=== PATIENT | female | born 1955 | race Caucasian/White ===

== ENCOUNTER 2018-09-01 00:36 | Emergency (ER) | payer OTHER ==
[2018-09-01 01:31] LABS: Absolute Lymphocytes (CBC) 2.7 K/uL (0.7-4.9); Absolute Monocytes 0.7 K/uL (0.1-1.3); Absolute Neutrophil 5.5 K/uL (1.8-8.0); Basophils % 1.1 % (0-1.3); Hematocrit 37.6 % (36.0-45.0); Lymphocytes % 28.4 % (15.3-44.8); MCH 30.4 pg (27.0-35.0); MCV 89.5 fL (80-100); MPV 9.1 fL (7.6-11.3); Monocytes % 7.8 % (3.3-12.3)
[2018-09-01 01:37] LABS: Potassium 4.2 mmol/L (3.5-5.1)
--- NOTE | 2018-09-01 02:55 | EDPHYS ---
Physician Documentation [facility] Name: Annabella Trevino Age: 63 yrs Sex: Female : 1955 Arrival Date: 09/01/2018 Time: 00:39 Bed 7 Private MD: ED Physician Laureano Miles HPI: 09/01 01:50 This 63 yrs old Female presents to ER via Ambulatory with complaints of tw4 Vaginal Bleeding. 01:50 The patient presents with vaginal bleeding that is moderate, with clots. Onset: The tw4 symptoms/episode began/occurred 3 day(s) ago. Modifying factors: The symptoms are alleviated by nothing, the symptoms are aggravated by nothing. Associated signs and symptoms: The patient has no apparent associated signs or symptoms. Severity of symptoms: At their worst the symptoms were moderate, in the emergency department the symptoms are unchanged. The patient has not experienced similar symptoms in the past. Historical: - Allergies: 00:52 No Known Allergies; lp1 - Home Meds: 00:52 loratadine 10 mg oral tab 1 tab once daily [Active]; amlodipine 5 mg tab 1 tab once lp1 daily [Active]; pravastatin 40 mg oral tab nightly [Active]; Ventolin HFA 90 mcg/actuation Nebulizer HFAA 2 puffs every 6 hours [Active]; lisinopril 40 mg Oral tab 1 tab once daily [Active]; Flovent Inhl 1 puff twice a day [Active]; - PMHx: 00:52 Diabetes - NIDDM; Hyperlipidemia; Asthma; lp1 - PSHx: 00:52 ; Tubal ligation; lp1 - Immunization history:: Adult Immunizations up to date. - Social history:: Smoking status: Patient/guardian denies using tobacco, never smoked. - Ebola Screening: : No symptoms or risks identified at this time. ROS: 01:50 Positive for vaginal bleeding. tw4 01:50 Constitutional: Negative for fever, chills, and weight loss, Neck: Negative for injury, pain, and swelling, Cardiovascular: Negative for chest pain, palpitations, and edema, Respiratory: Negative for shortness of breath, cough, wheezing, and pleuritic chest pain, Abdomen/GI: Negative for abdominal pain, nausea, vomiting, diarrhea, and constipation. 01:50 Skin: Negative for injury, rash, and discoloration, Neuro: Negative for headache, weakness, numbness, tingling, and seizure. 01:50 : Positive for vaginal bleeding. Exam: 01:53 Constitutional: This is a well developed, well nourished patient who is awake, alert, tw4 and in no acute distress. Head/Face: Normocephalic, atraumatic. Chest/axilla: Normal chest wall appearance and motion. Nontender with no deformity. No lesions are appreciated. Cardiovascular: Regular rate and rhythm with a normal S1 and S2. No gallops, murmurs, or rubs. Normal PMI, no JVD. No pulse deficits. Respiratory: Lungs have equal breath sounds bilaterally, clear to auscultation and percussion. No rales, rhonchi or wheezes noted. No increased work of breathing, no retractions or nasal flaring. Abdomen/GI: Soft, non-tender, with normal bowel sounds. No distension or tympany. No guarding or rebound. No evidence of tenderness throughout. Back: No spinal tenderness. No costovertebral tenderness. Full range of motion. MS/ Extremity: Pulses equal, no cyanosis. Neurovascular intact. Full, normal range of motion. Neuro: Awake and alert, GCS 15, oriented to person, place, time, and situation. Cranial nerves II-XII grossly intact. Motor strength 5/5 in all extremities. Sensory grossly intact. Cerebellar exam normal. Normal gait. 01:53 : Pelvic Exam: the exam is deferred. Vital Signs: 00:52 BP 156 / 65; Pulse 96; Resp 18; Temp 98.1(O); Pulse Ox 98% on R/A; Weight 112.94 kg; lp1 Height 5 ft. 5 in. (165.10 cm); Pain 0/10; 01:52 BP 114 / 78; Pulse 87; Resp 18; Pulse Ox 95% on R/A; rr5 03:00 BP 115 / 75; Pulse 87; Resp 17; rr5 00:52 Body Mass Index 41.44 (112.94 kg, 165.10 cm) lp1 MDM: 00:42 Patient medically screened. tw4 02:53 Data reviewed: vital signs, nurses notes. Data interpreted: Pulse oximetry: tw4 Interpretation: normal. Counseling: I had a detailed discussion with the patient and/or guardian regarding: the historical points, exam findings, and any diagnostic results supporting the discharge/admit diagnosis. Special discussion: I discussed with the patient/guardian in detail that at this point there is no indication for admission to the hospital. It is understood, however, that if the symptoms persist or worsen the patient needs to return immediately for re-evaluation. 09/01 00:55 Order name: Basic Metabolic Panel; Complete Time: 02:31 tw4 09/01 02:31 Interpretation: Normal except: GLUC 132; CRE 1.60; BUN 38; GFR 32. tw4 09/01 00:55 Order name: CBC with Diff; Complete Time: 02:31 tw4 09/01 02:32 Interpretation: Within normal limits. tw4 09/01 00:55 Order name: IV Saline Lock; Complete Time: 01:17 4 09/01 00:55 Order name: Labs collected and sent; Complete Time: 01:17 tw4 09/01 00:55 Order name: NPO; Complete Time: 01:17 4 09/01 02:16 Order name: Urine Dipstick--Ancillary (enter results) ms 09/01 00:55 Order name: Urine Dipstick-Ancillary (obtain specimen); Complete Time: 02:27 tw4 Administered Medications: No medications were administered Disposition: 09/01/18 02:55 Discharged to Home. Impression: Dysmenorrhea, unspecified, Chronic kidney disease (CKD). - Condition is Stable. - Discharge Instructions: Dysmenorrhea, Chronic Kidney Disease, Adult. - Medication Reconciliation Form, Thank You Letter, Antibiotic Education, Prescription Opioid Use form. - Follow up: Arnold Yip MD; When: Upon discharge from the Emergency Department; Reason: Recheck today's complaints, Continuance of care. - Problem is new. - Symptoms have improved. Signatures: Dispatcher [employer] EDMS Ilda Whipple RN RN lp1 Laureano Miles MD MD tw4 Dangelo English RN RN rr5 Corrections: (The following items were deleted from the chart) 02:55 02:55 09/01/2018 02:55 Discharged to Home. Impression: Dysmenorrhea, unspecified. tw4 Condition is Stable. Forms are Medication Reconciliation Form, Thank You Letter, Antibiotic Education, Prescription Opioid Use. Follow up: Arnold Yip; When: Upon discharge from the Emergency Department; Reason: Recheck today's complaints, Continuance of care. Problem is new. Symptoms have improved. tw4 03:13 02:55 09/01/2018 02:55 Discharged to Home. Impression: Dysmenorrhea, unspecified; rr5 Chronic kidney disease (CKD). Condition is Stable. Forms are Medication Reconciliation Form, Thank You Letter, Antibiotic Education, Prescription Opioid Use. Follow up: Arnold Yip; When: Upon discharge from the Emergency Department; Reason: Recheck today's complaints, Continuance of care. Problem is new. Symptoms have improved. tw4
--- NOTE | 2018-09-01 02:55 | ER ---
Nurse's Notes [facility] Name: Annabella Trevino Age: 63 yrs Sex: Female : 1955 Arrival Date: 09/01/2018 Time: 00:39 Bed 7 Private MD: Diagnosis: Dysmenorrhea, unspecified;Chronic kidney disease (CKD) Presentation: 09/01 00:49 Presenting complaint: Patient states: Vaginal bleeding that began Thursday, stopped on lp1 Thursday, began again ton; states "bleeding with jello-like clots"; denies any pain, burning with urination. Transition of care: patient was not received from another setting of care. Onset of symptoms was September 01, 2018. Risk Assessment: Do you want to hurt yourself or someone else? Patient reports no desire to harm self or others. Initial Sepsis Screen: Does the patient meet any 2 criteria? No. Patient's initial sepsis screen is negative. Does the patient have a suspected source of infection? No. Patient's initial sepsis screen is negative. Care prior to arrival: None. 00:49 Method Of Arrival: Ambulatory lp1 00:49 Acuity: RENETTA 3 lp1 Historical: - Allergies: 00:52 No Known Allergies; lp1 - Home Meds: 00:52 loratadine 10 mg oral tab 1 tab once daily [Active]; amlodipine 5 mg tab 1 tab once lp1 daily [Active]; pravastatin 40 mg oral tab nightly [Active]; Ventolin HFA 90 mcg/actuation Nebulizer HFAA 2 puffs every 6 hours [Active]; lisinopril 40 mg Oral tab 1 tab once daily [Active]; Flovent Inhl 1 puff twice a day [Active]; - PMHx: 00:52 Diabetes - NIDDM; Hyperlipidemia; Asthma; lp1 - PSHx: 00:52 ; Tubal ligation; lp1 - Immunization history:: Adult Immunizations up to date. - Social history:: Smoking status: Patient/guardian denies using tobacco, never smoked. - Ebola Screening: : No symptoms or risks identified at this time. Screenin:53 Abuse screen: Denies threats or abuse. Denies injuries from another. Nutritional lp1 screening: No deficits noted. Tuberculosis screening: No symptoms or risk factors identified. Fall Risk None identified. Assessment: 01:22 Reassessment: Patient appears in no apparent distress at this time. Patient is alert, rr5 oriented x 3, equal unlabored respirations, skin warm/dry/pink. General: Appears in no apparent distress. comfortable, Behavior is calm, cooperative. Pain: Denies pain. Neuro: Level of Consciousness is Oriented to person, place, time. Cardiovascular: Patient's skin is warm and dry. Respiratory: Airway is patent. GI: Abdomen is round obese. : Reports vaginal bleeding that is bright red, with clots. : :. EENT: No signs and/or symptoms were reported regarding the EENT system. Derm: No signs and/or symptoms reported regarding the dermatologic system. Skin is intact, is healthy with good turgor. Musculoskeletal: Circulation, motion, and sensation intact. Vital Signs: 00:52 BP 156 / 65; Pulse 96; Resp 18; Temp 98.1(O); Pulse Ox 98% on R/A; Weight 112.94 kg; lp1 Height 5 ft. 5 in. (165.10 cm); Pain 0/10; 01:52 BP 114 / 78; Pulse 87; Resp 18; Pulse Ox 95% on R/A; rr5 03:00 BP 115 / 75; Pulse 87; Resp 17; rr5 00:52 Body Mass Index 41.44 (112.94 kg, 165.10 cm) lp1 ED Course: 00:39 Patient arrived in ED. ds1 00:42 Laureano Miles MD is Attending Physician. tw4 00:49 Triage completed. lp1 00:53 Arm band placed on left wrist. lp1 00:55 Dangelo nEglish RN is Primary Nurse. rr5 01:10 Inserted saline lock: 20 gauge in right forearm, using aseptic technique. Blood rr5 collected. 01:30 Placed in gown. Bed in low position. Call light in reach. rr5 02:54 Arnold Yip MD is Referral Physician. tw4 03:07 No provider procedures requiring assistance completed. IV discontinued, Pressure rr5 dressing applied. Administered Medications: No medications were administered Outcome: 02:55 Discharge ordered by . tw4 03:07 Discharged to home ambulatory. rr5 03:07 Condition: stable 03:07 Discharge instructions given to patient, Instructed on discharge instructions, follow up and referral plans. Demonstrated understanding of instructions, follow-up care. 03:13 Patient left the ED. rr5 Signatures: Shama Mckeon ds1 Ilda Whipple RN RN lp1 Laureano Miles MD MD tw4 Dangelo English RN RN rr5 Corrections: (The following items were deleted from the chart) 01:20 01:18 Inserted saline lock: 20 gauge in right forearm, using aseptic technique. rr5 rr5
[2018-09-01 03:49] LABS: Urine Blood 3+ (NEG); Urine Glucose NEGATIVE (NEG); Urine Protein NEGATIVE (NEG)
== END 2018-09-01 03:13 | disposition home or self-care (01) ==
LOC: ER 00:36
DX: N94.6 Dysmenorrhea, unspecified (principal); N18.9 Chronic kidney disease, unspecified; E11.9 Type 2 diabetes mellitus without complications; E78.5 Hyperlipidemia, unspecified; J45.909 Unspecified asthma, uncomplicated
CPT/HCPCS: 36415; 80048; 81003; 85025; 99283

== ENCOUNTER 2018-10-12 06:31 | Day surgery (SDC) | payer OTHER ==
[2018-10-12] MEDS ORDERED: NA CHLORIDE 0.9% 1,000 ML ONE ×2 (06:45→07:26)
[2018-10-12] MEDS ORDERED: MIDAZOLAM HCL 2 MG/2 ML INJ ONE (07:28)
[2018-10-12] MEDS ORDERED: LIDOCAINE 2% MPF 5 ML VIAL ONE (07:28)
[2018-10-12] MEDS ORDERED: PROPOFOL 200 MG/20 ML VIAL IV ONE (07:28)
[2018-10-12] MEDS ORDERED: FENTANYL CITR 100 MCG/2 ML ONE (07:28)
[2018-10-12] MEDS ORDERED: ONDANSETRON HCL 40 MG/20 ML VIAL ONE (07:29)
[2018-10-12] MEDS ORDERED: EPHEDRINE SULF 50 MG/10 ML SYR ONE (07:59)
--- NOTE | 2018-10-12 19:49 | OP ---
Date of Procedure: 10/12/2018 Surgeon: Tammy Melendez MD Preoperative Diagnoses: Postmenopausal bleeding and uterine mass. Postoperative Diagnoses: Postmenopausal bleeding and uterine mass. Procedures Performed: Hysteroscopy, polypectomy, dilatation and curettage with Symphion. Anesthesia: General. Specimens: Endometrial curettings and polyp. Complications: None. Drains: None. Condition: The patient is stable. Findings: Uterine cavity with a tumor that was irregular, spanning across all the enriquez of the uteri ne cavity. Adequate sampling was done without the goal of removing the tumor. There was moderate amount of bleeding at the time of the specimen retrieval, however, bleeding was mi nimal on observation in the OR prior to the patient being woken up. Description Of Procedure: After informed consent was verified, the patient was taken back to OR, jimmie nyasia in a supine fashion on operating table. After general anesthesia was given, she was placed in a dorsal lithotomy position using Rob stirrups. Pelvic exam was performed. Uterus found to be antef lexed, cervix small, mucoid discharge from the vagina was noted before I went in. Speculum was place d to expose the cervix, prepped with Betadine x3. Anterior lip grasped with single-tooth tenaculum. Symphion scope was primed. Hysteroscopy directly was performed through the cervical canal into the uterine cavity. Irregular, frondlike structures were seen. Once in the cavity, all the surfaces of the endometrial cavity were encompassed with tumor. For adequate sampling, the cutting device was us ed, and once adequate sampling was obtained, the scope was removed. The pressures were maintained at 80 mmHg. Fluid deficit was very minimal, less than 50 cc. Observed for bleeding for at least 3 min utes, there was no brisk bleeding from here. The instruments were removed. Instrument, needle, and sponge counts were done and were correct at the end of the case. The patient tolerated the procedure well. She will follow with me in 1 week for results. OLIVIA/ELLIOTT Voice ID: [id number] Report ID: [id number]
== END 2018-10-12 09:30 | disposition home or self-care (01) ==
LOC: OR 06:31
PROVIDERS: ATTEND Obstetrics & Gynecology
PROC: 0UDB8ZX Extraction of Endometrium, Via Natural or Artificial Opening Endoscopic, Diagnostic (ICD-10-PCS; 2018-10-12)
PROC: 0UB98ZX Excision of Uterus, Via Natural or Artificial Opening Endoscopic, Diagnostic (ICD-10-PCS; principal; 2018-10-12 07:30)
DX: C54.1 Malignant neoplasm of endometrium (principal); E11.9 Type 2 diabetes mellitus without complications; I10 Essential (primary) hypertension; E78.00 Pure hypercholesterolemia, unspecified; J45.909 Unspecified asthma, uncomplicated; E66.9 Obesity, unspecified; Z68.41 Body mass index [BMI] 40.0-44.9, adult; Z83.3 Family history of diabetes mellitus; Z82.49 Family history of ischemic heart disease and other diseases of the circulatory system; Z82.3 Family history of stroke
CPT/HCPCS: 58558; 82962 ×2; 88305; J2250; J2405; J2704; J3010; J7030

== ENCOUNTER 2019-06-20 16:46 | Observation (INO) | payer OTHER ==
--- OUTSIDE RECORDS SUMMARY | 2019-06-20 16:50 | XMS REPORT | Clinical Summary ---
:1955 Author Organization [facility] Address [address] [place] [address] Care Team Providers Name Role Phone Arnold Boston MD Primary Care Provider Allergies No Known Allergies Medications Medication Sig Dispensed Refills Start Date End Date Status VENTOLIN HFA 90 Take 2 puffs by 0 08/25/2018 Active mcg/actuation inhaler mouth 2 (two) times a day. amLODIPine (NORVASC) Take 1 tablet 0 09/04/2018 Active 5 mg tablet by mouth every morning. ONETOUCH ULTRA BLUE CHECK EVERY 3 08/25/2018 Active TEST STRIP strip test MORNING strips FLOVENT HFA 44 Take 1 puff by 3 10/02/2018 Active mcg/actuation inhaler mouth 2 (two) times a day. ONETOUCH DELICA CHECK EVERY 3 08/19/2018 Active LANCETS 33 gauge misc MORNING lisinopril Take 40 mg by 0 10/26/2018 Active (PRINIVIL,ZESTRIL) 40 mouth every mg tablet morning. pravastatin Take 40 mg by 3 09/18/2018 Active (PRAVACHOL) 40 MG mouth nightly. tablet loratadine (CLARITIN) Take 10 mg by 0 Active 10 mg tablet mouth daily. acetaminophen Take 650 mg by 0 Active (TYLENOL ARTHRITIS mouth 2 (two) PAIN) 650 MG 8 hr times a day. tablet fluticasone (FLONASE) 1 spray by Each 0 Active 50 mcg/actuation Nare route nasal spray daily. cetirizine (ZyrTEC) Take 10 mg by 0 Active 10 MG tablet mouth daily. HYDROcodone-acetamino Take 1 tablet 10 tablet 0 11/23/2018 12/03/2018 phen (NORCO) 5-325 mg by mouth every per tablet 6 (six) hours as needed for moderate pain for up to 10 days. Max Daily Amount: 4 tablets docusate sodium Take 1 capsule 14 capsule 0 11/23/2018 11/30/2018 (COLACE) 100 MG (100 mg total) capsule by mouth 2 (two) times a day for 7 days. Active Problems Problem Noted Date Endometrial cancer 10/29/2018 Overview: Added automatically from request for surgery [id number] Encounters Date Type Specialty Care Team Description 05/10/2019 Hospital Encounter Radiation Oncology Camilo Lombardi Endometrial cancer MD [facility] ([facility] (Primary Dx) 03/21/2019 Hospital Encounter Radiation Oncology Camilo Lombardi Endometrial cancer MD [facility] ([facility]) (Primary Dx) 03/21/2019 Oncology Radiation Oncology [place] 03/18/2019 Oncology Radiation Oncology [facility] 03/15/2019 Hospital Encounter Radiation Oncology Camilo Lombardi Endometrial cancer MD [facility] ([facility]) (Primary Dx) 03/09/2019 Hospital Encounter Radiation Oncology Camilo Lombardi MD 03/07/2019 Hospital Encounter Radiation Oncology Camilo Lombardi MD 02/23/2019 - Hospital Encounter Radiation Oncology Camilo Lombardi 02/24/2019 MD [facility] 02/23/2019 Hospital Encounter Radiation Oncology Camilo Lombardi Endometrial cancer MD [facility] ([facility]) (Primary Dx) 02/15/2019 Telephone Gynecologic Ellie España Endometrial cancer Oncology MD James ([facility]) (Primary Dx) 02/03/2019 Office Visit Gynecologic Ellie España Endometrial cancer Oncology MD James ([facility]) (Primary Dx) 01/21/2019 Hospital Encounter Radiology Ellie España Endometrial cancer MD James ([facility]) 01/19/2019 Telephone Obstetrics and Ellie España Gynecology MD James 12/23/2018 Office Visit Gynecologic Ellie España Endometrial cancer Oncology MD James ([facility]) (Primary Dx) 11/26/2018 Abstract Gynecologic Ellie España Oncology MD James 11/22/2018 Surgery General Surgery Ellie España XI ROBOTIC ASSISTED MD James LAPAROSCOPIC HYSTERCETOMY W/ BSO , EPISIOTOMY WITH REPAIR 11/22/2018 Anesthesia Event General Surgery DanaCherelleelsie Gracia NP 11/22/2018 - Hospital Encounter General Internal Ellie España Endometrial cancer 11/23/2018 Medicine MD James (HCC) 11/22/2018 Telephone Gynecologic Ellie España Oncology MD James 11/16/2018 Pre-Admit Testing Pre-Admission Ellie España Preop testing ( Primary Dx); Appointment Testing MD James Endometrial cancer ([facility]) 11/11/2018 Telephone Gynecologic Ellie España Oncology MD James 10/29/2018 Office Visit Gynecologic Ellie España Endometrial cancer ([facility]) ( Primary Dx); Oncology MD James PMB (postmenopausal bleeding); Type 2 diabetes mellitus without complication, without long-term current use of insulin ([facility]); Thickened endometrium 10/29/2018 Prep for Surgery Gynecologic Abby Salinas RN Endometrial cancer Oncology ([facility]) (Primary Dx) 10/21/2018 Telephone Gynecologic Ellie España Oncology MD [facility] after 06/19/2018 Family History Medical History Relation Name Comments Colon cancer Cousin Heart disease Father Prostate cancer Maternal Grandfather Heart disease Mother Relation Name Status Comments Cousin Father Maternal Grandfather Mother Social History Tobacco Use Types Packs/Day Years Used Date Never Smoker Smokeless Tobacco: Never Used Alcohol Use Drinks/Week oz/Week Comments No Alcohol Habits Answer Date Recorded How often do you have a drink containing alcohol? Never 11/05/2018 How many drinks containing alcohol do you have on a typical Not asked day when you are drinking? How often do you have six or more drinks on one occasion? Not asked Sex Assigned at Date Recorded Not on file Job Start Date Occupation Industry Not on file Not on file Not on file Travel History Travel Start Travel End No recent travel history available. Last Filed Vital Signs Vital Sign Reading Time Taken Blood Pressure 159/72 05/10/2019 1:59 PM CDT Pulse 67 05/10/2019 1:59 PM CDT Temperature 36.1 C (97 F) 05/10/2019 1:59 PM CDT Respiratory Rate 18 05/10/2019 1:59 PM CDT Oxygen Saturation 97% 03/21/2019 2:50 PM CDT Inhaled Oxygen Concentration - - Weight 114 kg (250 lb 4.8 oz) 05/10/2019 1:59 PM CDT Height 165.1 cm (5' 5") 02/03/2019 1:27 PM CDT Body Mass Index 41.65 02/03/2019 1:27 PM CDT Plan of Treatment Date Type Specialty Care Team Description 08/04/2019 Office Visit [place] [address] [facility] [address] [place] [address] 09/20/2019 Appointment [place] [address] [facility] [address] [place] [address] Health Maintenance Due Date Last Done Comments DIABETIC RETINAL EYE EXAM 1955 DIABETIC FOOT EXAM 1963 BREAST CANCER SCREENING 2003 COLONOSCOPY SCREENING 2003 SHINGLES VACCINES (#1) 2003 65+ PNEUMOCOCCAL VACCINE (1 of 2 - PCV13) 2018 INFLUENZA VACCINE 06/09/2019 Procedures Procedure Name Priority Date/Time Associated Diagnosis Comments PET CT SKULL BASE TO Routine 01/21/2019 3:48 Endometrial cancer Results for this MID THIGH PM CDT (HCC) procedure are in the results section. POC GLUCOSE Routine 01/21/2019 1:27 Results for this PM CDT procedure are in the results section. POC GLUCOSE Routine 11/23/2018 7:47 Results for this AM DOOR FRAME BUILDER procedure are in the results section. POC GLUCOSE Routine 11/22/2018 9:35 Results for this PM [employer]AME [employer]DER procedure are in the results section. POC GLUCOSE Routine 11/22/2018 3:31 Results for this PM [employer]DER procedure are in the results section. POC GLUCOSE Routine 11/22/2018 11:26 Results for this AM [employer] FRAME BUILDER procedure are in the results section. SURGICAL PATHOLOGY Routine 11/22/2018 10:17 Results for this REQUEST AM [employer] BUILDER procedure are in the results section. SURGICAL PATHOLOGY Routine 11/22/2018 10:17 Results for this REQUEST AM [employer] FRAME BUILDER procedure are in the results section. SURGICAL PATHOLOGY Routine 11/22/2018 10:17 Results for this REQUEST AM [employer] FRAME BUILDER procedure are in the results section. TX AN ELECTIVE Routine 11/22/2018 9:16 ENDOTRACHEAL AIRWAY AM [employer] FRAME BUILDER Procedure Note - Octavia Roach CRNA - 11/22/2018 9:16 AM DOOR FRAME BUILDER ANESTHESIA INTUBATION Date/Time: 11/22/2018 8:21 AM Performed by: Octavia Roach CRNA Authorized by: Kamille Kothari MD Location: OR Urgency: Elective Difficult Airway: No Preoxygenated with 100% O2: Yes C-spine Precautions Maintained Throughout: Yes Mask Ventilation: Easy mask Final Airway Type: Endotracheal airway Final Endotracheal Airway: ETT Cuffed: Yes Technique Used: Direct laryngoscopy Devices/Methods Used in Placement: Intubating stylet Insertion Site: Oral Blade Type: Hilary ETT Size (mm): 7.0 Cuff at minimum occlusion pressure: Yes Measured from: Lips ETT to Lips (cm): 22 Placement Verified by: CO2 detection, direct visualization and equal breath sounds Laryngoscopic view: Grade I - full view of glottis Rapid Sequence Induction (RSI): No Modified RSI: No Number of Attempts at Approach: 1 URINALYSIS SCREEN AND Timed 11/22/2018 9:08 AM Endometrial cancer Results for this MICROSCOPY, WITH DOOR FRAME BUILDER (HCC) procedure are in REFLEX TO CULTURE the results section. URINE CULTURE Timed 11/22/2018 9:08 AM Results for this [employer] BUILDER procedure are in the results section. POC PANEL 4 Routine 11/22/2018 6:49 AM Results for this [employer]DER procedure are in the results section. SURGICAL PATHOLOGY Routine 11/22/2018 Results for this REQUEST procedure are in the results section. ESTIMATED GFR Routine 11/16/2018 11:26 AM Results for this [employer]DER procedure are in the results section. HC COMPLETE BLD COUNT Routine 11/16/2018 11:26 AM Endometrial cancer Results for this W/AUTO DIFF [employer]OR FRAME BUILDER (HCC) procedure are in the results section. COMPREHENSIVE Routine 11/16/2018 11:26 AM Endometrial cancer Results for this METABOLIC PANEL [employer]OR FRAME BU[employer]DER (HCC) procedure are in the results section. TYPE AND SCREEN Routine 11/16/2018 11:26 AM Endometrial cancer Results for this DO[employer] FRAME BUILDER (HCC) procedure are in the results section. ECG PRE/POST OP Routine 11/16/2018 11:20 AM Endometrial cancer Results for this DOOR FRAME BUILDER (HCC) procedure are in the results section. after 06/19/2018 Results PET/CT Skull Base To Mid Thigh (01/21/2019 3:48 PM CDT) Specimen Narrative Performed At PROCEDURE:PET CT SKULL BASE TO MID THIGH HM RADIANT INDICATION:Initial staging endometrial cancer.Initial treatment strategy. TECHNIQUE:Blood glucose measured at the time of injection was 86 mg/dL. The patient was then injected with 11.1 mCi of 18F-FDG, IV.Approximately one hour later, PET images were acquired from the skull base to the mid thighs. Corresponding, low dose, non-contrast CT scanning was performed as part of the attenuation correction process.Automated dose exposure control was utilized. COMPARISON:No comparison imaging. FINDINGS: Head and neck:No suspicious brain uptake.Prior maxillary sinus disease.Normal uptake in the nasopharynx and oropharynx.Uptake by the larynx is normal.No suspicious neck lymph node uptake. Chest:No abnormal mediastinal, hilar, or axillary lymph node uptake.No suspicious pulmonary uptake. Abdomen:Normal uptake in the stomach, spleen, pancreas, liver, and adrenal glands.No abnormal retroperitoneal or mesenteric lymph node uptake. Probable hemorrhagic left renal cyst. Pelvis:Physiologic bowel uptake.No abnormal pelvic sidewall or inguinal lymph node uptake.The uterus is absent. Review of the osseous structures demonstrates no suspicious uptake. IMPRESSION: 1.No evidence for metastatic endometrial cancer. [facility]-[id number] Procedure Note [facility], Radiology Results Incoming - 01/21/2019 5:12 PM CDT PROCEDURE: PET CT SKULL BASE TO MID THIGH INDICATION: Initial staging endometrial cancer. Initial treatment strategy. TECHNIQUE: Blood glucose measured at the time of injection was 86 mg/dL. The patient was then injected with 11.1 mCi of 18F-FDG, IV. Approximately one hour later, PET images were acquired from the skull base to the mid thighs. Corresponding, low dose, non-contrast CT scanning was performed as part of the attenuation correction process. Automated dose exposure control was utilized. COMPARISON: No comparison imaging. FINDINGS: Head and neck: No suspicious brain uptake. Prior maxillary sinus disease. Normal uptake in the nasopharynx and oropharynx. Uptake by the larynx is normal. No suspicious neck lymph node uptake. Chest: No abnormal mediastinal, hilar, or axillary lymph node uptake. No suspicious pulmonary uptake. Abdomen: Normal uptake in the stomach, spleen, pancreas, liver, and adrenal glands. No abnormal retroperitoneal or mesenteric lymph node uptake. Probable hemorrhagic left renal cyst. Pelvis: Physiologic bowel uptake. No abnormal pelvic sidewall or inguinal lymph node uptake. The uterus is absent. Review of the osseous structures demonstrates no suspicious uptake. IMPRESSION: 1. No evidence for metastatic endometrial cancer. [facility]-[id number] Performing Organization Address City/State/Zipcode Phone Number [facility] [address] [place] [address] POC glucose (01/21/2019 1:27 PM CDT)Only the most recent of5 resultswithin the time period is included. POC glucose 86 65 - 99 mg/dL [facility] Comment: [facility] Meter ID: [id number] Forging Machine Operator: Ivette Lewis Specimen Performing Organization Address City/State/Zipcode Phone Number [facility] DEPARTMENT OF PATHOLOGY [address] [place] [address] AND GENOMIC MEDICINE [facility] [id number] [place] [address] Surgical pathology request (11/22/2018 10:17 AM DOOR FRAME BUILDER)Only the most recent of4 resultswithin the time period is included. [facility] DEPARTMENT OF PATHOLOGY AND GENOMIC MEDICINE Surgical pathology See link below for [facility] DEPARTMENT OF report PDF Lab Report PATHOLOGY AND GENOMIC MEDICINE Result status This is Supplemental [facility] DEPARTMENT OF Report for PATHOLOGY AND [id number] GENOMIC MEDICINE Specimen Performing Organization Address [facility] Phone Number [facility] DEPARTMENT OF PATHOLOGY [address] [place] [address] AND [facility] Urinalysis screen and microscopy, with reflex to culture (11/22/2018 9:08 AM DOOR FRAME BUILDER) Specimen site Catheterized [facility] Color, UA Straw [facility] Appearance, UA Clear [facility] Specific gravity, 1.009 1.001 - 1.030 [facility] pH, UA 5.0 5.0 - 9.0 [facility] Protein, UA Negative Negative [facility] Glucose, UA Negative Negative [facility] Ketones, UA Negative Negative [facility] Bilirubin, UA Negative Negative [facility] Blood, UA Negative Negative [facility] Nitrite, UA Negative Negative [facility] Urobilinogen, UA <2.0 <2.0 E.U./dL [facility] Leukocyte esterase, Negative Negative [facility] WBC, UA <1 0 - 4 /HPF [facility] RBC, UA <1 0 - 5 /HPF [facility] Bacteria, UA None seen None seen [facility] Yeast, UA None seen [facility] Yeast with None seen [facility] pseudohyphae, UA [facility] Specimen Urine - Urine, catheter Performing Organization Address City/[facility]/Zipcode Phone Number [facility] DEPARTMENT OF PATHOLOGY [address] [place] [address] Urine culture (11/22/2018 9:08 AM DOOR FRAME BUILDER) Urine culture SEE COMMENTComment: [facility] Bacteriuria screen [facility] negative. Specimen Performing Organization Address City/[facility] Phone Number [facility] DEPARTMENT OF PATHOLOGY [address] [place] [address] POC panel 4 (11/22/2018 6:49 AM DOOR FRAME BUILDER) POC sodium 137 135 - 148 [facility] mmol/L [facility] POC potassium 4.5 3.5 - 5.0 [facility] mmol/L [facility] POC hematocrit 40 37 - 47 % [facility] POC glucose 114 (H) 65 - 99 mg/dL [facility] POC hemoglobin 13.6 12.0 - 16.0 [facility] Comment: g/dL [facility] Meter ID: [id number] Forging Machine Operator: Zia Ortiz Specimen Blood Performing Organization Address City/[facility]/Zipcode Phone Number [facility] DEPARTMENT OF PATHOLOGY [address] [place] [address] Estimated GFR (11/16/2018 11:26 AM DOOR FRAME BUILDER) Estimated GFR 43 (A) mL/min/1.73 [facility] Comment: m2 [facility]Units[facility]pretation [facility] G1 >=90 Normal or high G2 60-89Mildly decreased [id number] to moderately decreased [id number] to severely decreased G4 15-29Severely decreased G5 <15Kidney failure The eGFR was calculated using the Chronic Kidney Disease Epidemiology Collaboration (CKD-EPI) equation. Interpretation is based on recommendations of the National Kidney Foundation-Kidney Disease Outcomes Quality Initiative (NKF-KDOQI) published in 2014. Specimen Plasma specimen Performing Organization Address City/State/Zipcode Phone Number [facility] DEPARTMENT OF PATHOLOGY [id number] [place] [address] [place] [address] HOSPITAL CBC with platelet and differential (11/16/2018 11:26 AM DOOR FRAME BUILDER) WBC 7.5 4.5 - 11.0 k/uL [facility] RBC 4.27 4.20 - 5.50 m/uL [facility] HGB 12.5 12.0 - 16.0 g/dL [facility] HCT 38.4 37.0 - 47.0 % [facility] MCV 89.9 82.0 - 100.0 fL [facility] MCH 29.3 27.0 - 34.0 pg [facility] MCHC 32.6 31.0 - 37.0 g/dL [facility] RDW - SD 41.0 37.0 - 55.0 fL [facility] MPV 10.7 6.9 - 11.0 fL [facility] Platelet count 277 150 - 400 K/uL [facility] Nucleated RBC 0.00 /100 WBC [facility] Neutrophils 56.9 39.0 - 69.0 % [facility] Lymphocytes 28.9 25.0 - 45.0 % [facility] Monocytes 8.9 0.0 - 10.0 % [facility] Eosinophils 4.1 0.0 - 5.0 % [facility] Basophils 0.9 0.0 - 1.0 % [facility] Immature granulocytes 0.3 0.0 - 1.0 % [facility] Specimen Blood Performing Organization Address City/[facility]/Zipcode Phone Number [facility] DEPARTMENT OF PATHOLOGY [address] [place] [address] [place] [address] HOSPITAL Type and screen (11/16/2018 11:26 AM DOOR FRAME BUILDER) ABO grouping A [facility] Rh type POS [facility] Antibody screen (gel) NEG [facility] Specimen Blood Performing Organization Address City/[facility]/Zipcode Phone Number [facility] DEPARTMENT OF PATHOLOGY [address] [place] [address] Comprehensive metabolic panel (11/16/2018 11:26 AM DOOR FRAME BUILDER) Sodium 139 135 - 148 mEq/L [facility] Potassium 5.2 (H) 3.5 - 5.0 mEq/L [facility] Chloride 102 98 - 112 mEq/L [facility] CO2 26 24 - 31 mEq/L [facility] Anion gap 11@ANIO 7 - 15 mEq/L [facility] BUN 30 (H) 8 - 23 mg/dL [facility] Creatinine 1.29 (H) 0.50 - 0.90 [facility] mg/dL [facility] Glucose 105 (H) 65 - 99 mg/dL [facility] Calcium 9.3 8.8 - 10.2 [facility] mg/dL [facility] Protein 7.8 6.3 - 8.3 g/dL [facility] Albumin 4.3 3.5 - 5.0 g/dL [facility] A/G ratio 1.2 0.7 - 3.8 [facility] Alkaline phosphatase 94 35 - 104 U/L [facility] AST 22 10 - 35 U/L [facility] ALT 19 5 - 50 U/L [facility] Total bilirubin <0.2 0.2 - 1.2 mg/dL [facility] Specimen Plasma specimen Performing Organization Address City/State/Zipcode Phone Number [facility] DEPARTMENT OF PATHOLOGY [address] [place] [address] ECG Pre/Post Op (11/16/2018 11:20 AM DOOR FRAME BUILDER) Ventricular rate 77 [facility] Atrial rate 77 [facility] TX interval 152 [facility] QRSD interval 100 [facility] QT interval 396 [facility] QTC interval 448 [facility] P axis 1 38 [facility] QRS axis 1 0 [facility] T wave axis 30 [facility] EKG impression Normal sinus [facility] rhythm-Normal ECG-No previous ECGs available-Electronicall y Signed By Michael Boland MD (2013) on 11/17/2018 1:54:04 PM Specimen Narrative Performed At Performing Organization Address City/State/Zipcode Phone Number [facility] [address] [address] [place] [address] after 06/19/2018 Advance Directives Patient has advance care planning documents on file. For more information, please contact:Carlos Ravi[address] [place] [address]
[2019-06-20 17:50] LABS: Absolute Lymphocytes (CBC) 2.2 K/uL (0.7-4.9); Hematocrit 36.6 % (36.0-45.0); Lymphocytes % 26.5 % (15.3-44.8); MPV 8.9 fL (7.6-11.3); RBC Red Blood Cell Count 4.08 M/uL (3.86-4.86)
[2019-06-20 18:12] LABS: Albumin 3.7 g/dL (3.4-5.0); Bilirubin Total 0.3 mg/dL (0.2-1.0); Protein, Total 7.9 g/dL (6.4-8.2)
[2019-06-20] MEDS ORDERED: VENTOLIN IH PRN (20:25)
--- NOTE | 2019-06-20 20:44 | RAD REPORT ---
EXAM DESCRIPTION: RAD - Hand Left 3 View - 06/20/2019 8:03 pm CLINICAL HISTORY: Septic arthritis COMPARISON: None. FINDINGS: No fracture, dislocation or periosteal reaction noted. Advanced IP joint degenerative vera ges are present. There is fusion of the fourth PIP joint with medial and lateral marginal spurring. S ubstantial joint space narrowing seen at the third PIP joint with large spurs. More moderate degrees of degenerative change seen in the IP joints of the thumb and third- fifth phalanges. There is promin ent soft tissue swelling around the second PIP joint. No erosive or destructive component. Second MCP joint space narrowing is present. No erosive or destructive component. The remaining MCP j oints are spared. Patient has advanced trapezial first metacarpal articulation degenerative change. IMPRESSION: Advanced degenerative change at the second PIP joint with prominent surrounding soft tis joceline swelling. This would be consistent with the diagnosis of septic arthritis. No erosive or destructive change at the second PIP joint. Advanced degenerative changes elsewhere in the IP joints of the hand. Findings are most pronounced at the third PIP joint and the fourth PIP joint which has fused.
[2019-06-20] MEDS: FLUTICASONE PROPIONATE IH SCH (21:00)
[2019-06-20] MEDS ORDERED: ATORVASTATIN 20 MG TAB PO SCH (21:00)
[2019-06-20 23:47] LABS: Rheumatoid Factor POS (NEG)
[2019-06-21] MEDS: FLUTICASONE PROPIONATE IH SCH ×2 (08:53→08:58)
[2019-06-21] MEDS ORDERED: FLUTICASONE IH SCH (09:00)
[2019-06-21] MEDS ORDERED: LISINOPRIL 20 MG TAB PO SCH (09:00)
[2019-06-21] MEDS ORDERED: AMLODIPINE 5 MG TAB PO SCH (09:00)
[2019-06-21 09:26] LABS: Urine Appearance CLEAR; Urine Bilirubin NEGATIVE (NEG); Urine Blood NEGATIVE (NEG); Urine Color YELLOW; Urine Glucose NEGATIVE (NEG); Urine Protein NEGATIVE (NEG); Urine Urobilinogen 0.2 mg/dL (0.2-1.0)
[2019-06-21 09:30] LABS: Urine Microscopic Reflex NO UMIC
[2019-06-21] MEDS ORDERED: FLUTICASONE PROPIONATE 44 MCG IH SCH (21:00)
--- NOTE | 2019-06-22 00:13 | HP ---
Date of Admission: 06/20/2019 Chief Complaint: Pain, hand. History Of Present Illness: A 64-year-old female who is known to have hypertension, mild diabetes, a nd asthma, was brought to the office with fairly sudden onset of swelling, pain and redness of the in dex finger. She was examined and she had no motion of the proximal interphalangeal joint of the inde x finger. In view of this, a possibility of pyogenic arthritis was considered, admitted for observat ion, either for aspiration or possible surgery. Past Medical History: Positive for diabetes, hypertension, asthma, uterine cancer, gallbladder surge ry, hysterectomy, and knee surgery on the left. Allergies: NONE. Family History: Positive for hypertension and diabetes. Personal History: Nonsmoker. Home Medicines: Please refer to the chart. Review of Systems: The patient denied any fever, chills, rigors. Physical Examination: General: Revealed a 64-year-old female. HEENT: No icterus. Neck: Supple. JVD negative. Chest: Clear. Heart: Regular. Abdomen: Pendulous, nontender. Extremities: There is diffuse swelling and redness of the second finger in the proximal interphalang eal joint. Range of motion is 0. She is unable to make a fist. Laboratory Data: X-ray of the hand showed possible findings compatible with septic arthritis. White count, however, is normal. Assessment: 1.Sudden onset of redness, pain and swelling, second finger, proximal interphalangeal joint. 2.Type 2 diabetes. 3.Hypertension. 4.Asthma. 5.History of uterine cancer. 6.Status post gallbladder surgery and hysterectomy. Plan: The patient is to be seen by Dr. Lancaster who is going to do aspiration before which no antib iotics will be given. However, her rheumatoid arthritis test is positive. It is possible that she m ay have baseline rheumatoid arthritis with added acute exacerbation or septic arthritis. STACEY/JOEL Voice ID: [id number]
--- NOTE | 2019-06-23 08:21 | OP ---
Surgeon: Salomon Lancaster MD [place] Surfacer: None. Preoperative Diagnosis: Puncture wound of the left index finger. Postoperative Diagnosis: Puncture wound of the left index finger. Procedure Performed: Tenosynovectomy of the left index finger proximal interphalangeal joint. Anesthesia: General. Description Of Procedure: After satisfactory induction of general anesthesia, left hand was prepped with Betadine scrub, Betadine paint. Dry sterile drapes applied in usual manner. The arm was elevated, exsanguinated with an Esmarch. Tourniquet was inflated to 250 mmHg. Curvilinear incision made over dorsum of the left index finger PIP joint. Then, flaps were elevated . No foreign body was identified. There was swelling of the extensor tendon. Then dissection into the joint was performed. there was white material present sililar to that seen with previous steroid injections. The wound was jet lavaged, irrigated, after cultures were taken and then tourniquet released. Electrocautery was used for hemostasis. The split tendon was closed with 5-0 Prolene clear. Skin was closed with 4-0 Prolene, vertical mattress with simple sutures, dressed with Xeroform, 2 inch Ad. The patient tolerated the procedure well and returned to Recovery. SHASTA/ELLIOTT Voice ID: [id number] Report ID: [id number] PETAR
== END 2019-06-21 17:54 | disposition home or self-care (01) ==
LOC: 4TH 16:47
PROVIDERS: ADMIT Internal Medicine; ATTEND Internal Medicine
DX: M00.9 Pyogenic arthritis, unspecified (principal); I10 Essential (primary) hypertension; E11.9 Type 2 diabetes mellitus without complications; J45.909 Unspecified asthma, uncomplicated; M06.9 Rheumatoid arthritis, unspecified; Z85.42 Personal history of malignant neoplasm of other parts of uterus
CPT/HCPCS: 87040 ×2; 85025; 36415; 86430; 82962 ×4; 81003; 80053; 86038; 73130; G0379; G0378

== ENCOUNTER 2019-06-22 11:10 | Day surgery (SDC) | payer OTHER ==
--- OUTSIDE RECORDS SUMMARY | 2019-06-22 11:12 | XMS REPORT | Clinical Summary ---
:1955 Author Organization [facility] Address [address] [place] [address] Care Team Providers Name Role Phone Arnold [...] Overview: Added automatically from request for surgery [id number] Encounters Date Type Specialty Care Team Description 05/10/2019 Hospital Encounter Radiation Oncology Camilo Lombardi Endometrial cancer MD Max[facility] ([facility]) (Primary Dx) 03/21/2019 Hospital Encounter Radiation Oncology Camilo Lombardi Endometrial cancer MD Maxime ([facility]) (Primary Dx) 03/21/2019 Oncology Radiation Oncology [place] 03/18/2019 Oncology Radiation Oncology [facility] 03/15/2019 Hospital Encounter Radiation Oncology Camilo Lombardi Endometrial cancer MD Maxime ([facility]) (Primary Dx) 03/09/2019 Hospital Encounter Radiation Oncology Camilo Lombardi MD 03/07/2019 Hospital Encounter Radiation Oncology Camilo Lombardi MD 02/23/2019 - Hospital Encounter Radiation Oncology Camilo Lombardi 02/24/2019 MD [facility] 02/23/2019 Hospital Encounter Radiation Oncology Camilo Lombardi Endometrial cancer MD Maxime ([facility]) (Primary Dx) 02/15/2019 Telephone Gynecologic Ellie España Endometrial cancer Oncology MD James ([facility]) (Primary Dx) 02/03/2019 Office Visit Gynecologic Ellie España Endometrial cancer Oncology MD James ([facility]) (Primary Dx) 01/21/2019 Hospital Encounter Radiology Ellie España Endometrial cancer MD James ([facility]) 01/19/2019 Telephone Obstetrics and Ellie España Gynecology MD James 12/23/2018 Office Visit Gynecologic Ellie España Endometrial cancer Oncology MD James ([facility]) (Primary Dx) 11/26/2018 Abstract Gynecologic Ellie España [...] Dx); Appointment Testing MD James Endometrial cancer ([facility]) 11/11/2018 Telephone Gynecologic Ellie España Oncology MD James 10/29/2018 Office Visit Gynecologic Ellie España Endometrial cancer ([facility]) ( Primary Dx); Oncology MD James PMB (postmenopausal bleeding); Type 2 diabetes mellitus without complication, without long-term current use of insulin ([facility]); Thickened endometrium 10/29/2018 Prep for Surgery Gynecologic Abby Salinas RN Endometrial cancer Oncology ([facility]) (Primary Dx) 10/21/2018 Telephone Gynecologic Ellie España Oncology MD James after 06/21/2018 Family History Medical History Relation Name Comments [...] Office Visit [place] [id number] [facility] [address] [place] [address] 09/20/2019 Appointment [place] [id number] [facility] [address] [place] [address] Health Maintenance Due Date Last [...] Routine 11/23/2018 7:47 Results for this AM INVESTMENT DIRECTOR procedure are in the results section. POC GLUCOSE Routine 11/22/2018 9:35 Results for this PM INVESTMENT DIRECTOR procedure are in the results section. POC GLUCOSE Routine 11/22/2018 3:31 Results for this PM INVESTMENT DIRECTOR procedure are in the results section. POC GLUCOSE Routine 11/22/2018 11:26 Results for this AM INVESTMENT DIRECTOR procedure are in the results section. SURGICAL PATHOLOGY Routine 11/22/2018 10:17 Results for this REQUEST AM INVESTMENT DIRECTOR procedure are in the results section. SURGICAL PATHOLOGY Routine 11/22/2018 10:17 Results for this REQUEST AM INVESTMENT DIRECTOR procedure are in the results section. SURGICAL PATHOLOGY Routine 11/22/2018 10:17 Results for this REQUEST AM INVESTMENT DIRECTOR procedure are in the results section. MA AN ELECTIVE Routine 11/22/2018 9:16 ENDOTRACHEAL AIRWAY AM INVESTMENT DIRECTOR Procedure Note - Octavia Roach CRNA - 11/22/2018 9:16 AM INVESTMENT DIRECTOR ANESTHESIA INTUBATION Date/Time: 11/22/2018 8:21 AM Performed [...] Endometrial cancer Results for this MICROSCOPY, WITH INVESTMENT DIRECTOR (HCC) procedure are in REFLEX TO CULTURE the results section. URINE CULTURE Timed 11/22/2018 9:08 AM Results for this INVESTMENT DIRECTOR procedure are in the results section. POC PANEL 4 Routine 11/22/2018 6:49 AM Results for this INVESTMENT DIRECTOR procedure are in the results section. SURGICAL PATHOLOGY Routine 11/22/2018 Results for this REQUEST procedure are in the results section. ESTIMATED GFR Routine 11/16/2018 11:26 AM Results for this INVESTMENT DIRECTOR procedure are in the results section. HC COMPLETE BLD COUNT Routine 11/16/2018 11:26 AM Endometrial cancer Results for this W/AUTO DIFF INVESTMENT DIRECTOR (HCC) procedure are in the results section. COMPREHENSIVE Routine 11/16/2018 11:26 AM Endometrial cancer Results for this METABOLIC PANEL INVESTMENT DIRECTOR (HCC) procedure are in the results section. TYPE AND SCREEN Routine 11/16/2018 11:26 AM Endometrial cancer Results for this INVESTMENT DIRECTOR (HCC) procedure are in the results section. ECG PRE/POST OP Routine 11/16/2018 11:20 AM Endometrial cancer Results for this INVESTMENT DIRECTOR (HCC) procedure are in the results section. after 06/21/2018 Results PET/CT Skull Base To Mid Thigh [...] IMPRESSION: 1.No evidence for metastatic endometrial cancer. [facility]-[id number] Procedure Note [facility], Radiology Results Incoming - 01/21/2019 5:12 PM [...] 1. No evidence for metastatic endometrial cancer. [facility]-[id number] Performing Organization Address City/State/Zipcode Phone Number [facility] [address] [place] [address] POC glucose (01/21/2019 1:27 PM CDT)Only the most recent of5 resultswithin the time period is included. POC glucose 86 65 - 99 mg/dL [facility] Comment: [facility] Meter ID: [id number] Scutcher Tender: Ivette Lewis Specimen Performing Organization Address City/State/Zipcode Phone Number [facility] OF PATHOLOGY [address] [place] [address] AND GENOMIC MEDICINE [facility] [id number] [place] [address] Surgical pathology request (11/22/2018 10:17 AM INVESTMENT DIRECTOR)Only the most recent of4 resultswithin the time period is included. [facility] PATHOLOGY AND GENOMIC MEDICINE Surgical pathology See link below for [facility] report PDF Lab Report PATHOLOGY AND GENOMIC MEDICINE Result status This is Supplemental [facility] Report for PATHOLOGY AND [id number] GENOMIC MEDICINE Specimen Performing Organization Address [facility] Cent[facility] Phone Number [facility] PATHOLOGY [address] [place] [address] AND [facility] Urinalysis screen and microscopy, with reflex to culture (11/22/2018 9:08 AM INVESTMENT DIRECTOR) Specimen site Catheterized [facility] Color, UA Straw [facility] Appearance, UA Clear [facility] Specific gravity, 1.009 1.001 - 1.030 [facility] pH, UA 5.0 5.0 - 9.0 [facility] Protein, UA Negative Negative [facility] Glucose, UA Negative Negative [facility] Ketones, UA Negative Negative [facility] Bilirubin, UA Negative Negative [facility] Blood, UA Negative Negative [facility] Nitrite, UA Negative Negative [facility] Urobilinogen, UA <2.0 <2.0 E.U./dL [facility] Leukocyte esterase, Negative Negative [facility] WBC, UA <1 0 - 4 /HPF [facility] RBC, UA <1 0 - 5 /HPF [facility] Bacteria, UA None seen None seen [facility] Yeast, UA None seen [facility] Yeast with None seen [facility] pseudohyphae, UA [facility] Specimen Urine - Urine, catheter Performing Organization Address City/[facility]/Zipcode Phone Number [facility] PATH[facility] [address] [place] [address] Urine culture (11/22/2018 9:08 AM INVESTMENT DIRECTOR) Urine culture SEE COMMENTComment: [facility] Bacteriuria screen [facility] negative. Specimen Performing Organization Address City/[facility] Cent[facility]ode Phone Number [facility] [address] [place] [address] POC panel 4 (11/22/2018 6:49 AM INVESTMENT DIRECTOR) POC sodium 137 135 - 148 [facility] mmol/L [facility] POC potassium 4.5 3.5 - 5.0 [facility] mmol/L [facility] POC hematocrit 40 37 - 47 % [facility] POC glucose 114 (H) 65 - 99 mg/dL [facility] POC hemoglobin 13.6 12.0 - 16.0 [facility] Comment: g/dL [facility] Meter ID: [id number] Scutcher Tender: Zia Ortiz Specimen Blood Performing Organization Address City/[facility]/Zipcode Phone Number [facility]OLOG[facility] [address] [place] [address] Estimated GFR (11/16/2018 11:26 AM INVESTMENT DIRECTOR) Estimated GFR 43 (A) mL/min/1.73 [facility] Comment: m2 [place] CatergoryUnitsInterpretation HOSPITAL G1 >=90 Normal or high G2 60-89Mildly decreased [id number] to moderately decreased D6m24-64Xheiymkdyn to severely decreased G4 15-29Severely decreased G5 <15Kidney failure The eGFR was calculated using the Chronic Kidney Disease Epidemiology Collaboration (CKD-EPI) equation. Interpretation is based on recommendations of the National Kidney Foundation-Kidney Disease Outcomes Quality Initiative (NKF-KDOQI) published in 2014. Specimen Plasma specimen Performing Organization Address City/State/Zipcode Phone Number [facility]Y [id number] [place] [address] [place] [address] HOSPITAL CBC with platelet and differential (11/16/2018 11:26 AM INVESTMENT DIRECTOR) WBC 7.5 4.5 - 11.0 k/uL [facility] RBC 4.27 4.20 - 5.50 m/uL [facility] HGB 12.5 12.0 - 16.0 g/dL [facility] HCT 38.4 37.0 - 47.0 % [facility] MCV 89.9 82.0 - 100.[address] [facility] MCH 29.3 27.0 - 34.[address] [facility] MCHC 32.6 31.0 - 37.0 g/dL [facility] RDW - SD 41.0 37.0 - 55.[address] [facility] MPV 10.7 6.9 - 11.[address] [facility] Platelet count 277 150 - 400 K/uL [facility] Nucleated RBC 0.00 /[address] [facility] Neutrophils 56.9 39.0 - 69.0 % [facility] Lymphocytes 28.9 25.0 - 45.0 % [facility] Monocytes 8.9 0.0 - 10.0 % [facility] Eosinophils 4.1 0.0 - 5.0 % [facility] Basophils 0.9 0.0 - 1.0 % [facility] Immature granulocytes 0.3 0.0 - 1.0 % [facility] Specimen Blood Performing Organization Address City/[facility]/Zipcode Phone Number [facility] [address] [place] [address] [place] [address] HOSPITAL Type and screen (11/16/2018 11:26 AM INVESTMENT DIRECTOR) ABO grouping A [facility] Rh type POS [facility] Antibody screen (gel) NEG [facility] Specimen Blood Performing Organization Address City/[facility]/Zipcode Phone Number [facility] [address] [place] [address] Comprehensive metabolic panel (11/16/2018 11:26 AM INVESTMENT DIRECTOR) Sodium 139 135 - 148 mEq/L [facility] Potassium 5.2 (H) 3.5 - 5.0 mEq/L [facility] Chloride 102 98 - 112 mEq/L [facility] CO2 26 24 - 31 mEq/L [facility] Anion gap 11@ANIO 7 - 15 mEq/L [facility] BUN 30 (H) 8 - 23 mg/dL [facility] Creatinine 1.29 (H) 0.50 - 0.90 [facility] mg/dL [facility] Glucose 105 (H) 65 - 99 mg/dL [facility] Calcium 9.3 8.8 - 10.2 [facility] mg/dL [facility] Protein 7.8 6.3 - 8.3 g/dL [facility] Albumin 4.3 3.5 - 5.0 g/dL [facility] A/G ratio 1.2 0.7 - 3.8 [facility] Alkaline phosphatase 94 35 - 104 U/L [facility] AST 22 10 - 35 U/L [facility] ALT 19 5 - 50 U/L [facility] Total bilirubin <0.2 0.2 - 1.2 mg/dL [facility] Specimen Plasma specimen Performing Organization Address City/State/Zipcode Phone Number [facility] [address] [place] [address] ECG Pre/Post Op (11/16/2018 11:20 AM INVESTMENT DIRECTOR) Ventricular rate 77 [facility] Atrial rate 77 [facility] MA interval 152 [facility] QRSD interval 100 [...] At Performing Organization Address City/State/Zipcode Phone Number [facility] [address] [place] [address] after 06/21/2018 Advance Directives Patient has advance care planning documents on file. For more information, please contact:Carlos [id number] [place] [address]
[2019-06-22] MEDS ORDERED: NA CHLORIDE 0.9% 1,000 ML ONE (12:10)
[2019-06-22] MEDS ORDERED: CEFAZOLIN/SWI 1gm 1 GM/10 ML SYR ONE (12:10)
[2019-06-22] MEDS ORDERED: MIDAZOLAM HCL 2 MG/2 ML INJ ONE (13:03)
[2019-06-22] MEDS ORDERED: KETOROLAC 30 MG/ML INJ ONE (13:03)
[2019-06-22] MEDS ORDERED: LIDOCAINE 2% MPF 5 ML VIAL ONE (13:03)
[2019-06-22] MEDS ORDERED: PROPOFOL 200 MG/20 ML VIAL IV ONE (13:03)
[2019-06-22] MEDS ORDERED: FENTANYL CITR 100 MCG/2 ML ONE (13:03)
[2019-06-22] MEDS ORDERED: BUPIVACA 0.5%/EPI 0.0005%/PF 10 ML VIAL ONE (13:51)
[2019-06-22 14:16] VITALS: TEMP 98.1
[2019-06-22] MEDS ORDERED: CODEINE 30MG/APAP 300MG TAB ONE (14:51)
[2019-06-22 15:30] VITALS: BP 132/84; O2SAT 97
== END 2019-06-22 15:38 | disposition home or self-care (01) ==
LOC: OR 11:10
PROVIDERS: ATTEND Specialist
PROC: 0H9GXZZ Drainage of Left Hand Skin, External Approach (ICD-10-PCS; principal; 2019-06-22 14:00)
DX: L03.012 Cellulitis of left finger (principal); E11.22 Type 2 diabetes mellitus with diabetic chronic kidney disease; I12.9 Hypertensive chronic kidney disease with stage 1 through stage 4 chronic kidney disease, or unspecified chronic kidney disease; N18.3 Chronic kidney disease, stage 3 (moderate); J45.909 Unspecified asthma, uncomplicated; M06.9 Rheumatoid arthritis, unspecified; E66.01 Morbid (severe) obesity due to excess calories; Z68.41 Body mass index [BMI] 40.0-44.9, adult
CPT/HCPCS: 26010; 87070; 87205 ×2; 82962 ×2; 88304; 87075; J2704; J2250; J3010; J0690; J7030; 88305

== ENCOUNTER 2020-02-02 10:53 | Emergency (ER) | payer OTHER ==
--- NOTE | 2020-02-02 12:27 | RAD REPORT ---
EXAM DESCRIPTION: RAD - Knee Left 3 View - 02/02/2020 12:09 pm CLINICAL HISTORY: fall;Pain COMPARISON: No comparisons FINDINGS: No fracture, dislocation or periosteal reaction.No measurable joint effusion. Medial john rtment marginal spurring present seen. There is minimal spurring along the articular margins of the p atella. No significant joint space narrowing. No soft tissue abnormality. IMPRESSION: Degenerative changes are present without acute finding identifiable. Clinical concerns for internal derangement or occult bony injury could be further assessed with MR im aging.
--- NOTE | 2020-02-02 12:28 | RAD REPORT ---
EXAM DESCRIPTION: RAD - Knee Right 3 View - 02/02/2020 12:09 pm CLINICAL HISTORY: fall;Pain COMPARISON: <Comparisons> FINDINGS: No fracture, dislocation or periosteal reaction.No joint effusion seen. Medial compartment is slightly narrowed. There are moderate size marginal spurs in the medial compartment. Spurring is seen along the patella articular margins. There is minimal spurring or the quadriceps tendon attached is to the patella. Spurring is seen along the tibial spine and intercondylar notch. No foreign body or other soft tissue abnormality. IMPRESSION: Bony degenerative change as detailed. No acute bone or joint finding. Clinical concerns for internal derangement or occult bony injury could be further assessed with MR im aging.
--- NOTE | 2020-02-02 12:50 | EDPHYS ---
Physician Documentation [facility] Name: Annabella Trevino Age: 64 yrs Sex: Female : 1955 Arrival Date: 02/02/2020 Time: 10:55 Bed 7 Private MD: ED Physician Shaun Justice HPI: 02/01 11:25 This 64 yrs old Female presents to ER via Wheelchair with complaints of Fall cp Injury. 11:25 Details of fall: The patient fell from an upright position, while walking, and struck a cp tile surface. Onset: The symptoms/episode began/occurred today. Associated injuries: The patient sustained right knee and left knee, painful injury. Patient reports she lost her balance while walking and fell forward onto knees. Historical: - Allergies: 10:58 No Known Allergies; em - Home Meds: 10:58 Methotrexate (Anti-Rheumatic) Oral [Active]; em - PMHx: 10:58 Asthma; Diabetes - NIDDM; Hyperlipidemia; em - Immunization history:: Adult Immunizations up to date. - Social history:: Smoking status: Patient denies any tobacco usage or history of. ROS: 11:30 Constitutional: Negative for body aches, chills, fever. cp 11:30 Eyes: Negative for injury, pain, redness, and discharge. cp 11:30 Cardiovascular: Negative for chest pain. 11:30 Respiratory: Negative for shortness of breath. 11:30 Abdomen/GI: Negative for abdominal pain. 11:30 Back: Negative for pain at rest, pain with movement. 11:30 MS/extremity: Positive for pain, of the right knee and left knee. 11:30 Neuro: Negative for altered mental status, headache, loss of consciousness, syncope, weakness. 11:30 All other systems are negative. Exam: 11:40 Constitutional: The patient appears in no acute distress, alert, awake, well developed, cp well nourished, obese. 11:40 Head/Face: Normocephalic, atraumatic. cp 11:40 Chest/axilla: Inspection: normal. 11:40 Cardiovascular: Rate: normal. 11:40 Respiratory: the patient does not display signs of respiratory distress, Respirations: normal, no use of accessory muscles, labored breathing, is not present. 11:40 Abdomen/GI: Exam negative for discomfort, distension, guarding, Inspection: abdomen appears normal. 11:40 Musculoskeletal/extremity: Joints: All joints are normal except the right knee displays tenderness, the left knee displays pain at rest, painful range of motion, tenderness. 11:40 Neuro: Orientation: to person, place \T\ time. Mentation: is normal, Motor: moves all fours, strength is normal, Sensation: no obvious gross deficits. Vital Signs: 10:55 BP 123 / 60; Pulse 86; Resp 18; Temp 97.6; Pulse Ox 100% on R/A; Weight 113.4 kg; em Height 5 ft. 5 in. (165.10 cm); Pain 2/10; 12:29 BP 139 / 74; Pulse 74; Resp 16; Pulse Ox 100% ; bp 10:55 Body Mass Index 41.60 (113.40 kg, 165.10 cm) em MDM: 11:07 Patient medically screened. cp 12:25 Test interpretation: by ED physician or midlevel provider: plain radiologic studies, cp xrays of left knee negative for fracture and xrays of right knee negative for fracture. 12:48 Data reviewed: vital signs, nurses notes, radiologic studies, plain films. cp 12:48 Counseling: I had a detailed discussion with the patient and/or guardian regarding: the cp historical points, exam findings, and any diagnostic results supporting the discharge/admit diagnosis, radiology results, to return to the emergency department if symptoms worsen or persist or if there are any questions or concerns that arise at home. 02/01 11:18 Order name: XRAY Knee LEFT 3 view; Complete Time: 12:45 cp 02/01 12:45 Interpretation: Report reviewed. cp 02/01 11:18 Order name: XRAY Knee RIGHT 3 view; Complete Time: 12:45 cp 02/01 12:45 Interpretation: Report reviewed. cp Administered Medications: 12:29 Not Given (Patient Refused): Ibuprofen 800 mg PO once bp 12:29 Not Given (Patient Refused): Tylenol 650 mg PO once bp Disposition: 02/02 07:05 Co-signature as Attending Physician, Shaun Justice MD I agree with the assessment and kdr plan of care. Disposition: 02/02/20 12:49 Discharged to Home. Impression: Pain in knee - bilateral from fall, Fall on same level from slipping, tripping and stumbling. - Condition is Stable. - Discharge Instructions: Knee Pain. - Medication Reconciliation Form, Thank You Letter, Antibiotic Education, Prescription Opioid Use form. - Follow up: Private Physician; When: 2 - 3 days; Reason: Worsening of condition. - Problem is new. - Symptoms have improved. Signatures: Dispatcher [employer] EDShaun Rowan MD MD [facility] [address] Seth Pavon RN RN em Elissa Roach RN RN iw Adam Reed PA PA cp Peltier, Brian RN bp Corrections: (The following items were deleted from the chart) 02/01 13:17 12:49 02/02/2020 12:49 Discharged to Home. Impression: Pain in knee - bilateral from iw fall; Fall on same level from slipping, tripping and stumbling. Condition is Stable. Forms are Medication Reconciliation Form, Thank You Letter, Antibiotic Education, Prescription Opioid Use. Follow up: Private Physician; When: 2 - 3 days; Reason: Worsening of condition. Problem is new. Symptoms have improved. cp
--- NOTE | 2020-02-02 12:50 | ER ---
Nurse's Notes [facility] Name: Annabella Trevino Age: 64 yrs Sex: Female : 1955 Arrival Date: 02/02/2020 Time: 10:55 Bed 7 Private MD: Diagnosis: Pain in knee-bilateral from fall;Fall on same level from slipping, tripping and stumbling Presentation: 02/01 10:55 Chief complaint: Patient states: was leaving hospital after breast biopsy and foot got em caught on floor, pt has hx of degenerative disease, denies hitting head, c/o vashti. knee pain. Coronavirus screen: Patient denies fever greater than 100.4F, cough, shortness of breath, or difficulty breathing. Proceed with normal triage process. Ebola Screen: Patient negative for fever greater than or equal to 101.5 degrees Fahrenheit, and additional compatible Ebola Virus Disease symptoms Patient denies exposure to infectious person. Patient denies travel to an Ebola-affected area in the 21 days before illness onset. No symptoms or risks identified at this time. Initial Sepsis Screen: Does the patient meet any 2 criteria? No. Patient's initial sepsis screen is negative. Does the patient have a suspected source of infection? No. Patient's initial sepsis screen is negative. Risk Assessment: Do you want to hurt yourself or someone else? Patient reports no desire to harm self or others. 10:55 Method Of Arrival: Wheelchair em 10:55 Acuity: RENETTA 4 em Triage Assessment: 10:58 General: Appears in no apparent distress. comfortable, obese, Behavior is calm, bp cooperative, appropriate for age. Pain: Complains of pain in right knee and left knee. EENT: No deficits noted. Neuro: No deficits noted. Cardiovascular: No deficits noted. Respiratory: No deficits noted. GI: No signs and/or symptoms were reported involving the gastrointestinal system. : No signs and/or symptoms were reported regarding the genitourinary system. Derm: No deficits noted. Musculoskeletal: No deficits noted. Historical: - Allergies: 10:58 No Known Allergies; em - Home Meds: 10:58 Methotrexate (Anti-Rheumatic) Oral [Active]; em - PMHx: 10:58 Asthma; Diabetes - NIDDM; Hyperlipidemia; em - Immunization history:: Adult Immunizations up to date. - Social history:: Smoking status: Patient denies any tobacco usage or history of. Screenin:59 Abuse screen: Denies threats or abuse. Denies injuries from another. Nutritional bp screening: No deficits noted. Tuberculosis screening: No symptoms or risk factors identified. Fall Risk Fall in past 12 months (25 points). No secondary diagnosis (0 pts). No IV (0 pts). Ambulatory Aid- Crutches/Cane/Walker (15 pts). Gait- Normal/Bed Rest/Wheelchair (0 pts) Mental Status- Oriented to own ability (0 pts). Total Dixon Fall Scale indicates Low Risk Score (25-44 pts). Fall prevention measures have been instituted. Side Rails Up X 2 Placed close to Nursing Station Frequent Obs/Assesments occuring As available Patient and Family Educated on Fall Prevention Program and strategies. Assessment: 10:59 General: SEE TRIAGE NOTE. bp Vital Signs: 10:55 BP 123 / 60; Pulse 86; Resp 18; Temp 97.6; Pulse Ox 100% on R/A; Weight 113.4 kg; em Height 5 ft. 5 in. (165.10 cm); Pain 2/10; 12:29 BP 139 / 74; Pulse 74; Resp 16; Pulse Ox 100% ; bp 10:55 Body Mass Index 41.60 (113.40 kg, 165.10 cm) em ED Course: 10:55 Patient arrived in ED. em 10:56 Adam Reed PA is PHCP. cp 10:56 Shaun Justice MD is Attending Physician. cp 10:58 Triage completed. em 10:58 Kelvin Vega, SHERMAN is Primary Nurse. bp 10:58 Arm band placed on. em 10:59 Patient has correct armband on for positive identification. Bed in low position. Call bp light in reach. Side rails up X2. 12:16 XRAY Knee LEFT 3 view In Process Unspecified. EDMS 12:16 XRAY Knee RIGHT 3 view In Process Unspecified. EDMS Administered Medications: 12:29 Not Given (Patient Refused): Ibuprofen 800 mg PO once bp 12:29 Not Given (Patient Refused): Tylenol 650 mg PO once bp Outcome: 12:49 Discharge ordered by . cp 13:17 Patient left the ED. iw Signatures: Dispatcher [employer] Seth Love, RN RN Elissa Ceballos, RN RN Adam Baldwin PA PA cp Peltier, Brian, RN RN bp
[2020-02-02 13:30] VITALS: TEMP 97.6; O2SAT 100
[2020-02-02 13:32] VITALS: BP 139/74
== END 2020-02-02 13:17 | disposition home or self-care (01) ==
LOC: ER 10:53
DX: M25.562 Pain in left knee (principal); M25.561 Pain in right knee; W01.0XXA Fall on same level from slipping, tripping and stumbling without subsequent striking against object, initial encounter; Y93.01 Activity, walking, marching and hiking; Y92.9 Unspecified place or not applicable
CPT/HCPCS: 99282

== ENCOUNTER → 2020-02-02 | Day surgery (SDC) | payer OTHER ==
--- OUTSIDE RECORDS SUMMARY | 2020-02-02 09:40 | XMS REPORT | Summary of Care ---
:1955 Author Name Saran Sow R.N. Address [facility] Unavailable , Care Team Providers Name Role Phone JOSH VELAZQUEZ M.D. Unavailable Unavailable Saran Sow R.N. Unavailable Unavailable HILLARY PORRAS, GA ORTIZ Unavailable Unavailable CAROLINE PORRAS, JOSH GALLEOGS Unavailable Unavailable Unavailable Unavailable Unavailable Functional Status Name Dates Details Functional status health issues are not documented Status: Name Dates Details Cognitive status health issues are not documented Status: Problems Name Dates Details Arthralgia of multiple sites (719.49, M25.50) Status: Active Other seasonal allergic rhinitis (477.8, J30.2) Status: Active SOB (shortness of breath) on exertion (786.05, R06.02) Status: Active Rheumatoid arthritis involving both hands with positive rheumatoid factor ( 714.0, M05.741) Status: Active Medications Name Dates Details predniSONE 5 MG Oral Tablet TAKE 1 TABLET DAILY Quantity: 30 Refills: 4 CAROLINE Badillo, JOSH Start : 02-Dec-2019 Active Methotrexate 2.5 MG Oral Tablet TAKE 6 TABLET WEEKLY Quantity: 26 Refills: 4 VELAZQUEZCAROLINE Badillo, JOSH Start : 10-Jan-2020 Active Folic Acid 1 MG Oral Tablet TAKE 1 TABLET DAILY. Quantity: 90 Refills: 3 CAROLINE Badillo, JOSH Start : 10-Jan-2020 Active Fluticasone Propionate 50 MCG/ACT Nasal Suspension USE 1 SPRAY IN EACH NOSTRIL ONCE DAILY. Quantity: 1 Refills: 3 CAROLINE Badillo, JOSH Start : 10-Jan-2020 Active 16 GM Bottle Allergies and Adverse Reactions Name Dates Details No Known Drug Allergies (Allergy) Status: Active Procedures Procedure Dates Details Complete PFTs w/DLCO and Lung Volumes Date: 10-Jan-2020 [[facility]] CBC (INCLUDES DIFF/PLT) Date: 10-Jan-2020 [[facility]] CMP W/EGFR Date: 10-Jan-2020 Immunization Name Dates Details Immunizations not documented Social History Name Dates Details Tobacco smoking consumption unknown (finding) Vital Signs Date Test Result Details :58 Systolic blood pressure 128 mm[Hg] Status: Comments: Location: LUE; Position: Sitting Diastolic blood pressure 76 mm[Hg] Status: Comments: Location: LUE; Position : Sitting Body height 66 in Status: Weight 254.5 lb Status: Body mass index (BMI) [Ratio] 41.08 kg/m2 Status: Body surface area Derived from formula 2.22 m2 Status: Body temperature 98.2 f Status: Comments: Method: Oral Heart Rate 75 /min Status: Comments: Location: L Brachial Artery; Results Date Description Value Details :45 [[facility]] CBC (INCLUDES DIFF/PLT) WBC 10.0 {K/CMM} Range: 3.7-10.4 RBC 4.36 {M/CMM} Range: 4.20-5.40 Hgb 12.8 g/dl Range: 12.0-16.0 Hct 38.9 % Range: 36.0-48.0 MCV 89.3 fL Range: 80.0-98.0 MCH 29.3 pg Range: 27.0-31.0 MCHC 32.9 g/dl Range: 32.0-36.0 RDW 14.2 % Range: 11.5-14.5 Platelet 279 {K/CMM} Range: 133-450 Mean Platelet Volume 8.3 fL Range: 7.4-10.4 :45 [[facility]] Differential Segmented Neutrophils 67.6 % Range: 45.0-75.0 Monocytes 8.4 % Range: 2.0-12.0 Lymphocytes 21.1 % Range: 20.0-40.0 Eosinophils 1.4 % Range: 0.0-4.0 Basophils 1.5 % (Above high threshold) Range: 0.0-1.0 Segs-Bands # 6.8 {K/CMM} Range: 1.5-8.1 Lymphocytes # 2.1 {K/CMM} Range: 1.0-5.5 Monocytes # 0.8 {K/CMM} Range: 0.0-0.8 Eosinophils # 0.1 {K/CMM} Range: 0.0-0.5 Basophils # 0.2 {K/CMM} Range: 0.0-0.2 :45 [[facility]] CMP W/EGFR Sodium Level 138 {mEq/l} Range: 135-145 Potassium Level 4.9 {mEq/l} Range: 3.5-5.1 Chloride Level 104 {mEq/l} Range: 95-109 Carbon Dioxide 29 {mEq/l} Range: 24-32 AGAP 9.9 {mEq/l} (Below low Range: 10.0-20.0 threshold) Glucose Lvl 123 mg/dl (Above high Range: 70-99 threshold) Comments: Adult reference range values reflect the clinical guidelinesof the [place] Diabetes [employer]. Creatinine Lvl 1.20 mg/dl Range: 0.50-1.40 Blood Urea Nitrogen 36 mg/dl (Above high Range: 7-22 threshold) BUN/Creatinine Ratio 30 (Above high Range: 6-25 threshold) Total Protein 8.0 g/dl Range: 6.4-8.4 Albumin Lvl 4.1 g/dl Range: 3.5-5.0 Globulin 3.9 g/dl Range: 2.7-4.2 A/G Ratio 1.1 Range: 0.7-1.6 Calcium Level Total 9.5 mg/dl Range: 8.5-10.5 ALT 33 u/l Range: 0-65 AST 22 u/l Range: 0-37 Bili Total 0.4 mg/dl Range: 0.2-1.3 Alk Phos 111 u/l Range: 39-136 Comments: The pediatric reference ranges for this test represent a CLSI- basedtransference of the CALIPER database of pediatric reference intervals to the[facility] Peel analyzer (Clinical Biochemistry 46 (2013): 11 97-1219). [facility] [employer] has not internally validated these referenceranges and therefore they should be used only in the context of a thoroughclinical assessment. eGFR 47 {ML/MIN/1.7} Comments: The eGFR is calculated using the CKD-EPI formula. In most young, healthyindividuals the eGFR will be >90 mL/min/1.73m2. The eGFR declines with age. AneGFR of 60-89 may be normal in some populations, particularly the elderly, forwhom the CKD-EPI formula has not been extensively validated. Use of the eGFR isnot recommended in the following populations:Individuals with unstable creatinine concentratio ns, including patients and those with serious co-morbid conditions.Patients with extremes in muscle mass or diet.The data above are obtained from the National Kidney Disease Education Program(NK DEP) which additionally recommends that when the eGFR is used in patientswith extremes of body mass index for purposes of drug dosing, the eGFR shouldbe multiplied by the estimated BMI. [id number]:45 [[facility]] C-REACTIVE PROTEIN CRP 20.4 mg/L (Above high threshold) Range: <=2.9 :45 [[facility]] SED RATE BY MODIFIED WESTERGREN Sedimentation Rate 25 {mm/hr} (Above high threshold) Range: 0-20 Plan of Care Name Dates Details Planned Observations Planned Goals not documented Planned Encounters Appointment; JOSH VELAZQUEZ M.D. On: 24-Apr-2020 11:00 Interventions Provided Discussion/SummaryGuideline Used: Other: Ask medication question Roseline VillagePatient calling to verify instruction on Methotrexate. Review of chart shows she is to take 6 tablets of 2.5 mg weekly.Patient verbalizes understanding of the information. Recommended Disposition: Call back with any further questions or concerns. Intended Caller Action: Other: Ask a medication question. Additional Information: Patient verbalizes understanding of the instructions and agrees to disposition at this time. Instructions Name Dates Details Instructions not documented Encounters Appointment; JOSH VELAZQUEZ M.D. On: 29-Nov-2019 8:00 Encounter Diagnosis: Problem not documented Appointment; JOSH VELAZQUEZ M.D. On: 10-Jan-2020 11:00 Encounter Diagnosis: Problem not documented
--- OUTSIDE RECORDS SUMMARY | 2020-02-02 09:40 | XMS REPORT | Summary of Care ---
:1955 Author Name Galina Smith R.N. Address Unavailable Unavailable , Care Team Providers Name Role Phone CAROLINE Badillo, JOSH Unavailable Unavailable Galina Smith R.N. Unavailable Unavailable HILLARY PORRAS, [place] ORTIZ Unavailable Unavailable CAROLINE PORRAS, JOSH GALLEGOS Unavailable Unavailable Unavailable Unavailable Unavailable Functional Status [...] Basophils # 0.2 {K/CMM} Range: 0.0-0.2 :45 [[facility]] CMP W/EGFR Sodium Level 138 {mEq/l} Range: 135-145 Potassium Level 4.9 {mEq/l} Range: 3.5-5.1 Chloride Level 104 {mEq/l} Range: 95-109 Carbon Dioxide 29 {mEq/l} Range: 24-32 AGAP 9.9 {mEq/l} (Below low Range: 10.0-20.0 threshold) Glucose Lvl 123 mg/dl (Above high Range: 70-99 threshold) Comments: Adult reference range values reflect the clinical guidelinesof the [place] Diabetes [employer]. Creatinine Lvl 1.20 mg/dl Range: [...] CALIPER database of pediatric reference intervals to the[facility] [place] analyzer (Clinical Biochemistry 46 (2013): 11 97-1219). [facility] [employer] has not internally validated these referenceranges and [...] eGFR shouldbe multiplied by the estimated BMI. [id number]:45 [[facility]] C-REACTIVE PROTEIN CRP 20.4 mg/L (Above high threshold) Range: <=2.9 :45 [[facility]] SED RATE BY MODIFIED WESTERGREN Sedimentation Rate 25 {mm/hr} (Above high threshold) Range: 0-20 Plan of Care Name Dates Details Planned Observations Planned Goals not documented Planned Encounters Appointment; JOSH VELAZQUEZ M.D. On: 24-Apr-2020 11:00 Interventions Provided Discussion/SummaryGuideline Used: Other: Medication Reason for Disposition: to receive information about appt. Intended Caller Action: Other: Patient given directions on medication Instructions Name Dates Details Instructions not documented Encounters Appointment; JOSH VELAZQUEZ M.D. On: 29-Nov-2019 8:00 Encounter Diagnosis: Problem not documented Appointment; JOSH VELAZQUEZ M.D. On: 10-Jan-2020 11:00 Encounter Diagnosis: Problem not documented
--- NOTE | 2020-02-02 11:23 | RAD REPORT ---
EXAM DESCRIPTION: US - Breast Core BX w/US Guidance - 02/02/2020 10:20 am CLINICAL HISTORY: N63.20 COMPARISON: January 17 mammogram and ultrasound studies TECHNIQUE: The patient presents for ultrasound-guided biopsy of a previously detailed upper inner qu adrant left breast mass. The ultrasound-guided core biopsy procedure, risks and alternatives were discussed with the patient i n detail. After answering all questions, both oral and written consent were obtained. Time out proced ure was performed. The patient had no contraindicated allergy or medication history. Preliminary imaging identified the upper inner quadrant left breast mass. The left breast was prepped and draped in the usual sterile fashion. From a inferior approach, skin and deeper tissues were anes thetized with 1% lidocaine. Under direct sonographic visualization a 14 gauge vacuum assisted core bi opsy needle was advanced and placed at the margin of the mass. There were a total of 3 core biopsies obtained under direct sonographic guidance. The mass did appear to have distortion in contour support ing transit of the biopsy needle through the small mass. At the conclusion of the procedure a localization clip was placed under sonographic guidance. Post biopsy imaging showed no hematoma or measurable bleeding within the breast. Hemostasis was obtai brent at the skin site with a sterile bandage placed. Post procedure care and precaution instructions were given to the patient. IMPRESSION: 1. Ultrasound-guided core biopsy was performed of the left breast mass. All obtained mat erial was given to pathology for histologic assessment. 2. Post biopsy localization clip was placed under ultrasound guidance.
== END ==
LOC: RAD 09:37
PROVIDERS: ATTEND Physician Assistant Surgical
DX: C50.912 Malignant neoplasm of unspecified site of left female breast (principal); Z17.0 Estrogen receptor positive status [ER+]
CPT/HCPCS: 19083; 88305

== ENCOUNTER 2022-11-24 13:52 | Emergency (ER) | payer OTHER ==
--- OUTSIDE RECORDS SUMMARY | 2022-11-24 14:00 | XMS REPORT | Continuity of Care Document ---
:[address] [facility] t Address [address] [place] [address] Care Team Providers Name Role Phone Ludy PORRAS, Arnold Primary Care Physician [phone] DEBBIE DELUNA Attending Clinician Unavailable Magalie Cortez MD Attending Clinician [phone] Zina LEVY, Solange Lee Attending Clinician Taco PORRAS, Ellie Ramirez Attending Clinician Ruth Berman MA Attending Clinician Unavailable Doc PARKS, April Gracia Attending Clinician [phone] Galina Duncan RN Attending Clinician Unavailable Marjorie PORRAS, Julia Attending Clinician MD MAGALIE CORTEZ Attending Clinician Unavailable JOSH VELAZQUEZ M.D. Attending Clinician Unavailable MARY GRACE MOLINA Attending Clinician Unavailable Jeffrey-Mbayo_A_AH Attending Clinician Unavailable MAGALIE CORTEZ Admitting Clinician Unavailable MD MAGALIE CORTEZ Admitting Clinician Unavailable CHARLY ARTIS Admitting Clinician Unavailable Jeffrey-Mbayo_A_AH Admitting Clinician Unavailable Payers Payer Name Policy Type Policy Number Effective Date Expiration Date S jonh [facility] 7 [id number] 2022 CLASSIC NO PREMIUM 00:00:00 [facility] - [id number] 2019 [employer] 00:00:00 (MEDICARE REPLACEMENT/ADVANT AGE - HMO) Problems Condition Condition Condition Status Onset Resolution Last Treating Co mments Source Name Details Category Date Date Treatment Clinician Date S/P left S/P left Disease Active 2019-11 [facility] di mastectomy mastectomy 2-18 st 00:00: Hospita 00 l Arthralgia Arthralgia Disease Active 2019-11 M ethodi of of 0-29 st multiple multiple 00:00: Hospit a sites sites 00 l Asthma Asthma Disease Active 2019-11 Methodi dependent dependent 0 st on inhaled on inhaled 00:00: [facility]ita steroids steroids 00 l Chronic Chronic Disease Active 2019-11 [facility] right-side right-side 0 st d low back d low back 00:00: Ho spita pain with pain with 00 l right-side right-side d sciatica d sciatica Other Other Disease Active 2019-11 Methodi seasonal seasonal 0 st allergic allergic 00:00: Hospit a rhinitis rhinitis 00 l Rheumatoid Rheumatoid Disease Active 2019-11 M ethodi arthritis arthritis 0 st involving involving 00:00: Hosp macy both hands both hands 00 l with with positive positive rheumatoid rheumatoid factor factor Encounter Encounter Disease Active Met hodi for for 8-19 st monitoring monitoring 00:00: Ho spita aromatase aromatase 00 l inhibitor inhibitor therapy therapy Gout Gout Disease Active [facility] attack attack 8-14 st 00:00: Hospita 00 l Aromatase 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 8-13 st use use 00:00: Hospita 00 l Abnormal Abnormal Disease Active Metho di mammogram mammogram 8-05 st of left of left 00:00: Hospita breast breast 00 l Malignant Malignant Disease Active Met hodi neoplasm neoplasm 4-06 st of of 00:00: Hospita overlappin overlappin 00 l g sites of g sites of left left breast in breast in female, female, estrogen estrogen receptor receptor positive positive History of History of Disease Active M ethodi endometria endometria 4-06 st l cancer l cancer 00:00: Hospit a 00 l Family Family Disease Active Methodi history of history of 4-06 st colon colon 00:00: Hospita cancer cancer 00 l 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 00 l Arthralgia Arthralgia Problem Active [facility] multiple multiple ans sites sites Other Other Problem Active [facility] seasonal seasonal Physic i allergic allergic ans rhinitis rhinitis SOB SOB Problem Active UT (shortness (shortness Ph ysici of breath) of breath) an s on on exertion exertion Rheumatoid Rheumatoid Problem Active U T arthritis arthritis Phys ici involving involving ans both hands both hands with with positive positive rheumatoid rheumatoid factor factor Chronic Chronic Problem Active UT right-side right-side Ph ysici d low back d low back an s pain with pain with right-side right-side d sciatica d sciatica Allergies, Adverse Reactions, Alerts This patient has no known allergies or adverse reactions. Family History Family Member Diagnosis Comments Start Date Stop Date Source Cousin Colon cancer [facility] Natural father Heart disease [facility] Maternal grandfather Meth [facility] Natural mother Heart disease [facility] Paternal grandfather Prostate cancer [facility] Family member Breast cancer [facility] Social History Social Habit Start Date Stop Date Quantity Comments Source History SDOH [facility] Alcohol Std Hospital Drinks History [facility] Alcohol Binge Hospital Alcohol intake 2022-07-22 2022-07-22 Current [facility] 00:00:00 00:00:00 non-drinker of Hospital alcohol (finding) History SDOH 2020-12-21 2020-12-21 1 [facility] Alcohol Frequency 00:00:00 00:00:00 Hospita l Tobacco use and 2018-11-05 2018-11-05 Smokeless tobacco [facility] exposure 00:00:00 00:00:00 non-user Hospital Sex Ass[birth year] At [birth year] [facility] 00:00:00 00:00:00 Hospital Smoking Status Start Date Stop Date Source Never smoked tobacco [facility] Medications Ordered Filled Start Stop Current Ordering Indication Dosage Frequency Signature Comments Components Source Medication Medication Date Date Medication? Clinician (SIG) Name Name letrozole Yes [id number] TAKE 1 M ethodi (FEMARA) 1-[address] 2.5 mg 00:00: MOUTH Hospita chemo 00 EVERY DAY l tablet letrozole 2021-11- No [id number] TAKE 1 Methodi (FEMARA) 211-[address] 2.5 mg 00:00: 00:00 MOUTH Hospita chemo 00 :00 EVERY DAY l tablet letrozole 2021-11- No [id number] TAKE 1 Methodi (FEMARA) 12-[address] 2.5 mg 00:00: 00:00 MOUTH Hospita chemo 00 :00 EVERY DAY l tablet letrozole 2021-11- No [id number] TAKE 1 Methodi (FEMARA) 11-[address] 2.5 mg 00:00: 00:00 MOUTH Hospita chemo 00 :00 EVERY DAY l tablet letrozole 2021-11- No [id number] TAKE 1 Methodi (FEMARA) 009-[address] 2.5 mg 00:00: 00:00 MOUTH Hospita chemo 00 :00 DAILY FOR l tablet 30 DAYS. acetaminoph 2021-0 Yes 650mg Q.5D Take 650 M ethodi en ER 9-[address] (TYLENOL) 14:35: mouth in Hosp macy 650 MG 8 hr 58 the l tablet morning and 650 mg before bedtime. ipratropium 2021-0 Yes 3mL Q.25D Take 3 mL Methodi -albuteroL 9-[address] (DUO-NEB) 14:35: nebulizati Ho spita 0.5-2.5 58 on 4 l mg/3 mL (four) nebulizer times a day. simvastatin 2021-0 Yes 40mg QD Take 40 mg Methodi (ZOCOR) 40 9-[address] MG tablet 14:35: nightly. Hosp macy 58 l CALCIUM 2021-0 Yes Take by Methodi ORAL 9-[address] 14:35: Hospita 58 l cholecalcif 2022-0 Yes Take by Met hodi desmond, 9-[address] vitamin D3, 14:35: Hospit a (VITAMIN D3 58 l ORAL) letrozole 2-0 2- No [id number] 2.5mg QD Take 1 Method[facility] (FEMARA) - 10-[address] 2.5 mg 00:00: 00:00 (2.5 mg Hospita chemo 00 :00 total) by l tablet mouth daily for 30 days. allopurinoL 2022-0 Yes 100mg Q.5D Take 1 Met hodi (ZYLOPRIM) 8-[address] 100 MG 00:00: (100 mg Hospita tablet 00 total) by l mouth 2 (two) times a day. hydroCHLORO 2021-0 2021- No 12.5mg QD Take 1 M ethodi thiazide 6-17 09-[address] (HYDRODIURI 00:00: 00:00 (12.5 mg H ospita L) 12.5 MG 00 :00 total) by l tablet mouth every morning. acetaminoph 2022-0 Yes 650mg Q.5D Take 650 M ethodi en ER 3-[address] (TYLENOL) 14:36: mouth in Hosp macy 650 MG 8 hr 56 the l tablet morning and 650 mg before bedtime. ipratropium 2022-0 Yes 3mL Q.25D Take 3 mL Methodi -albuteroL 3-[address] (DUO-NEB) 14:36: nebulizati Ho spita 0.5-2.5 56 on 4 l mg/3 mL (four) nebulizer times a day. simvastatin 2022-0 Yes 40mg QD Take 40 mg Methodi (ZOCOR) 40 3-[address] MG tablet 14:36: nightly. Hosp macy 56 l CALCIUM 2022-0 Yes Take by Methodi ORAL 3-[address] 14:36: Hospita 56 l cholecalcif 2022-0 Yes Take by Met hodi desmond, 3-[address] vitamin D3, 14:36: Hospit a (VITAMIN D3 56 l ORAL) acetaminoph 2022-0 Yes 650mg Q.5D Take 650 M ethodi en ER 3-[address] (TYLENOL) 14:36: mouth in Hosp macy 650 MG 8 hr 56 the l tablet morning and 650 mg before bedtime. ipratropium 2-0 Yes 3mL Q.25D Take 3 mL Methodi -albuteroL 3-[address] (DUO-NEB) 14:36: nebulizati Ho spita 0.5-2.5 56 on 4 l mg/3 mL (four) nebulizer times a day. simvastatin 2-0 Yes 40mg QD Take 40 mg Method[facility] (ZOCOR) [address] MG tablet 14:36: nightly. Hosp macy 56 l CALCIUM 2021-0 Yes Take by Methodi ORAL 3-[address] 14:36: Hospita 56 l cholecalcif 2021-0 Yes Take by Met tej desmond, 3-[address] vitamin D3, 14:36: Hospit a (VITAMIN D3 56 l ORAL) fluticasone 2021-0 Yes SPRAY 2 Met hodi propionate 2-[address] (FLONASE) 00:00: EACH Hospita 50 00 NOSTRIL l mcg/actuati TWICE A on nasal DAY spray fluticasone 2021-0 Yes SPRAY 2 Met hodi propionate 2-[address] (FLONASE) 00:00: EACH Hospita 50 00 NOSTRIL l mcg/actuati TWICE A on nasal DAY spray fluticasone 2021-0 Yes SPRAY 2 Met hodi propionate 2-[address] (FLONASE) 00:00: EACH Hospita 50 00 NOSTRIL l mcg/actuati TWICE A on nasal DAY spray loratadine 2021-0 2021- No 10mg QD Take 10 mg [facility] (CLARITIN) 11-[address] 10 mg 11:51: 00:00 daily. Hospita tablet 47 :00 l loratadine 2021-0 2021- No 10mg QD Take 10 mg [facility] (CLARITIN) 11-[address] 10 mg 11:51: 00:00 daily. Hospita tablet 47 :00 l letrozole 2020-0 2021- No [id number] Take one [facility] (FEMARA) 06-27 08-[address] 2.5 mg 00:00: 04:59 daily Hospita chemo 00 :00 l tablet letrozole 2021- No [id number] Take one [facility] (FEMARA) 8- 08-[address] 2.5 mg 00:00: 04:59 daily Hospita chemo 00 :00 l tablet letrozole 2021- No [id number] Take one [facility] (FEMARA) 8- 08-[address] 2.5 mg 00:00: 04:59 daily Hospita chemo 00 :00 l tablet folic acid 2020-0 Yes Method[facility] (FOLVITE) 1 5-10 st MG tablet 00:00: Hospita 00 l folic acid 0 Yes Method[facility] (FOLVITE) 1 5-10 st MG tablet 00:00: Hospita 00 l folic acid 0 Yes Method[facility] (FOLVITE) 1 5-10 st MG tablet 00:00: Hospita 00 l hydroCHLORO 2020-0 Yes Method i thiazide 3-17 st (MICROZIDE) 00:00: Hospit a 12.5 mg 00 l capsule hydroCHLORO 2020-0 Yes Method i thiazide 3-17 st (MICROZIDE) 00:00: Hospit a 12.5 mg 00 l capsule hydroCHLORO 2020-0 Yes Method i thiazide 3-17 st (MICROZIDE) 00:00: Hospit a 12.5 mg 00 l capsule Methotrexat Methotrexat Yes JOSH 6 TAKE 6 UT e 2.5 MG e 2.5 MG 3-03 VELAZQUEZ TABLET Phy sici Oral Tablet Oral Tablet 00:00: M.D. WEEKLY ans 00 Folic Acid Folic Acid 0 Yes JOSH 1 QD TAKE 1 UT 1 MG Oral 1 MG Oral 3-03 VELAZQUEZ TABLET P hysici Tablet Tablet 00:00: M.D. DAILY. ans 00 Fluticasone Fluticasone 2019-0 Yes JOSH QD USE 1 UT Propionate Propionate 3-03 VELAZQUEZ SPRAY IN Physici 50 MCG/ACT 50 MCG/ACT 00:00: M.D. EACH a ns Nasal Nasal 00 NOSTRIL Suspension Suspension ONCE DAILY. predniSONE predniSONE 2019-0 Yes JOSH 1 QD TAKE 1 UT 5 MG Oral 5 MG Oral 1-24 VELAZQUEZ TABLET P hysici Tablet Tablet 00:00: M.D. DAILY ans 00 lisinopril 2017-11 Yes 40mg QD Take 40 mg M ethodi (PRINIVIL,Z 2-[address] ESTRIL) 40 00:00: every Hospit a mg tablet 00 morning. l lisinopril 2017-11 Yes 40mg QD Take 40 mg M ethodi (PRINIVIL,Z 2-[address] ESTRIL) 40 00:00: every Hospit a mg tablet 00 morning. l lisinopril 2017-11 Yes 40mg QD Take 40 mg M ethodi (PRINIVIL,Z 2-[address] ESTRIL) 40 00:00: every Hospit a mg tablet 00 morning. l FLOVENT HFA 2017-11 Yes 1{puff} Q.5D Take 1 M ethodi 44 1-[address] mcg/actuati 00:00: mouth 2 Hos jake on inhaler 00 (two) l times a day. FLOVENT HFA 2017-11 Yes 1{puff} Q.5D Take 1 M ethodi 44 1-[address] mcg/actuati 00:00: mouth 2 Hos jake on inhaler 00 (two) l times a day. FLOVENT HFA 2017-11 Yes 1{puff} Q.5D Take 1 M ethodi 44 1-[address] mcg/actuati 00:00: mouth 2 Hos jake on inhaler 00 (two) l times a day. amLODIPine 2017-11 Yes 1{tbl} QD Take 1 Met hodi (NORVASC) 5 0-[address] mg tablet 00:00: mouth Hospita 00 every l morning. amLODIPine 2017-11 Yes 1{tbl} QD Take 1 Met hodi (NORVASC) 5 0-[address] mg tablet 00:00: mouth Hospita 00 every l morning. amLODIPine 2017-11 Yes 5mg QD Take 1 Metho di (NORVASC) 5 0-[address] mg tablet 00:00: mouth Hospita 00 every l morning. VENTOLIN 2017-11 Yes 2{puff} Q.5D Take 2 Meth jason HFA 90 0-[address] mcg/actuati 00:00: mouth 2 Hos jake on inhaler 00 (two) l times a day. ONETOUCH 2017-11 Yes CHECK Methodi ULTRA BLUE 0-[address] TEST STRIP 00:00: MORNING Hosp macy strip test 00 l strips VENTOLIN 2017-11 Yes 2{puff} Q.5D Take 2 Meth jason HFA 90 0-[address] mcg/actuati 00:00: mouth 2 Hos jake on inhaler 00 (two) l times a day. UCH 2017-11 Yes CHECK Methodi ULTRA BLUE 0-[address] TEST STRIP 00:00: MORNING Hosp macy strip test 00 l strips VENTOLIN 2017-11 Yes 2{puff} Q.5D Take 2 Meth jason HFA 90 0-[address] mcg/actuati 00:00: mouth 2 Hos jake on inhaler 00 (two) l times a day. UCH 2017-11 Yes CHECK Methodi ULTRA BLUE 0-[address] TEST STRIP 00:00: MORNING Hosp macy strip test 00 l strips ONEUCH 2017-11 Yes CHECK Methodi DELICA 0-[address] LANCETS 33 00:00: MORNING Hosp macy gauge misc 00 l [facility] 2017-11 Yes CHECK Methodi DELICA 0-[address] LANCETS 33 00:00: MORNING [facility]acy gauge [facility] Yes CHECK [facility] DELICA 0-[address] LANCETS 33 00:00: MORNING Hosp macy gauge misc 00 l Vital Signs Vital Name Observation Time Observation Value Comments Source BMI 2022-07-22 42.70 kg/m2 [facility] 19:33:00 Hospital Systolic blood 2022-07-22 96 mm[Hg] [facility] pressure 19:33:00 Hospital Diastolic blood 2022-07-22 54 mm[Hg] [facility] pressure 19:33:00 Hospital Heart rate 2022-07-22 89 /min [facility] 19:33:00 Hospital Body height 2022-07-22 165.1 cm [facility] 19:33:00 Hospital Body weight 2022-07-22 116.393 kg [facility] 19:33:00 Hospital Systolic blood 2022-01-13 120 mm[Hg] [facility] pressure 20:36:00 Hospital Diastolic blood 2022-01-13 66 mm[Hg] [facility] pressure 20:36:00 Hospital Heart rate 2022-01-13 79 /min [facility] 20:36:00 Hospital Body height 2022-01-13 165.1 cm [facility] 20:36:00 Hospital Body weight 2022-01-13 117.935 kg [facility] 20:36:00 Hospital BMI 2022-01-13 43.27 kg/m2 [facility] 20:36:00 Hospital Body temperature 2021-11-20 36.39 Celeste [facility] 18:55:00 Hospital Respiratory rate 2021-11-20 99 /min [facility] 18:55:00 Hospital Systolic blood 2020-04-24 154 mm[Hg] Location: RUE; [facility] pressure 10:53:00 Position: Sitting Diastolic blood 2020-04-24 81 mm[Hg] Location: RUE; [facility] ans pressure 10:53:00 Position: Sitting Body height 2020-04-24 66 [in_us] [facility] 10:53:00 Weight 2020-04-24 251 [lb_av] [facility] 10:53:00 Body mass index 2020-04-24 40.51 kg/m2 [facility] (BMI) [Ratio] 10:53:00 Body temperature 2020-04-24 98.3 [degF] Method: Oral [facility] 10:53:00 Heart Rate 2020-04-24 74 /min Location: R [facility] 10:53:00 Brachial Artery; Systolic blood 2020-01-10 128 mm[Hg] Location: LUE; [facility] pressure 10:58:00 Position: Sitting Diastolic blood 2020-01-10 76 mm[Hg] Location: LUE; [facility] ans pressure 10:58:00 Position: Sitting Body height 2020-01-10 66 [in_us] [facility] 10:58:00 Weight 2020-01-10 254.5 [lb_av] [facility] 10:58:00 Body mass index 2020-01-10 41.08 kg/m2 [facility] (BMI) [Ratio] 10:58:00 Body temperature 2020-01-10 98.2 [degF] Method: Oral [facility] 10:58:00 Heart Rate 2020-01-10 75 /min Location: L [facility] 10:58:00 Brachial Artery; BP Systolic 2019-11-29 155 mm[Hg] Location: LUE; [facility] 08:18:00 Position: Sitting BP Diastolic 2019-11-29 84 mm[Hg] Location: LUE; [facility] 08:18:00 Position: Sitting Height 2019-11-29 65 [in_us] [facility] 08:18:00 Weight 2019-11-29 257 [lb_av] [facility] 08:18:00 Body Mass Index 2019-11-29 42.77 kg/m2 [facility] Calculated 08:18:00 Temperature 2019-11-29 97.8 [degF] Method: Oral [facility] 08:18:00 Heart Rate 2019-11-29 76 /min Location: L [facility] 08:18:00 Brachial Artery; Quality: Normal Procedures Procedure Date / Time Performing Clinician Source Performed BONE DENSITY 2022-08-01 16:33:05 [facility] Fink XR CHEST 2 VW 2022-07-22 16:45:19 Solange Izaguirre [facility] Rosa MAMMO BREAST SCREEN 2022-01-13 20:05:00 [facility] TOMOSYNTHESIS RIGHT Fink COMPREHENSIVE METABOLIC 2021-08-01 17:10:00 [facility] PANEL VITAMIN D 25 HYDROXY 2021-08-01 17:10:[address] [facility] LEVEL ESTIMATED GFR 2021-08-01 17:10:00 Andrade [facility] Ho spital BONE DENSITY 2021-08-01 16:40:00 [facility] Ho spital [QL] CBC (INCLUDES 2020-04-24 00:00:00 [facility] DIFF/PLT) [QL] CMP W/EGFR 2020-04-24 00:00:00 [facility] [QL] C-REACTIVE PROTEIN 2020-04-24 00:00:00 [facility] [QL] SED RATE BY MODIFIED 2020-04-24 00:00:00 [facility] WESTERGREN [U] XRAY SPINE 2020-04-24 00:00:00 [facility] LUMBOSACRAL 2 OR 3 [id number] [id number] Complete PFTs w/DLCO and 2020-01-10 00:00:00 [facility] Lung Volumes [QLH] CBC (INCLUDES 2020-01-10 00:00:00 [facility] DIFF/PLT) [QLH] CMP W/EGFR 2020-01-10 00:00:00 [facility] [QLH] C-REACTIVE PROTEIN 2020-01-10 00:00:00 [facility] [QLH] SED RATE BY 2020-01-10 00:00:00 [facility] ans MODIFIED WESTERGREN [QLH] SJOGRENS ANTIBODIES 2019-11-29 00:00:00 [facility] (SS-A,SS-B) [QL] VAMSHI SCREEN IFA 2019-11-29 00:00:00 [facility] W/REFL TITER IFA XRAY Hip bilateral w 2019-11-29 00:00:00 [facility] pelvis and both lat hips [id number] Plan of Care Planned Activity Planned Date Details Comments Source Future Scheduled 2022-11-21 65+ PNEUMOCOCCAL [facility] Test 08:51:20 VACCINE (1 - PCV) [code = 65+ PNEUMOCOCCAL VACCINE (1 - PCV)] Future Scheduled 2022-11-21 DIABETES: RETINAL EYE [facility] Test 08:51:20 EXAM [code = DIABETES: RETINAL EYE EXAM] Future Scheduled 2022-11-21 DIABETIC FOOT EXAM [facility] Test 08:51:20 [code = DIABETIC FOOT EXAM] Future Scheduled 2022-11-21 Hepatitis C screening [facility] Test 08:51:20 (procedure) [code = [id number]] Future Scheduled 2022-11-21 COLONOSCOPY SCREENING [facility] Test 08:51:20 [code = COLONOSCOPY SCREENING] Future Scheduled 2022-11-21 SHINGLES VACCINES (1 Met [facility] Test 08:51:20 of 2) [code = SHINGLES VACCINES (1 of 2)] Future Scheduled 2022-11-21 COVID-19 VACCINE (5 - Me [facility] Test 08:51:20 Booster for Pfizer series) [code = COVID-19 VACCINE (5 - Booster for Pfizer series)] Future Scheduled 2022-11-21 INFLUENZA VACCINE [facility] Test 08:51:20 [code = INFLUENZA VACCINE] Future Scheduled 2022-11-21 BREAST CANCER [facility] Test 08:51:20 SCREENING [code = BREAST CANCER SCREENING] Future Scheduled 2022-07-05 HEPATITIS B VACCINES Met [facility] Test 04:28:50 (1 of 3 - 3-dose series) [code = HEPATITIS B VACCINES (1 of 3 - 3-dose series)] Future Scheduled 2022-07-05 65+ [facility] 04:[facility] VACCINE (1 - PCV) [code = 65+ PNEUMOCOCCAL VACCINE (1 - PCV)] Future Scheduled 2022-07-05 DIABETES: RETINAL EYE [facility] Test 04:28:50 EXAM [code = DIABETES: RETINAL EYE EXAM] Future Scheduled 2022-07-05 [facility] Test 04:28:50 [code = DIABETIC FOOT EXAM] Future Scheduled 2022-07-05 Hepatitis C screening [facility] Test 04:28:50 (procedure) [code = [id number]] Future Scheduled 2022-07-05 COLONOSCOPY SCREENING [facility] Test 04:28:50 [code = COLONOSCOPY SCREENING] Future Scheduled 2022-07-05 SHINGLES VACCINES (1 Met [facility] Test 04:28:50 of 2) [code = SHINGLES VACCINES (1 of 2)] Future Scheduled 2022-07-05 COVID-19 VACCINE (4 - Me [facility] Test 04:28:50 Booster for Pfizer series) [code = COVID-19 VACCINE (4 - Booster for Pfizer series)] Future Scheduled 2022-07-05 INFLUENZA VACCINE [facility] Test 04:28:50 [code = INFLUENZA VACCINE] Future Scheduled 2022-07-05 BREAST CANCER [facility] Test 04:28:50 SCREENING [code = BREAST CANCER SCREENING] Future Scheduled 2022-07-05 HEPATITIS B VACCINES Met [facility] Test 04:28:50 (1 of 3 - 3-dose series) [code = HEPATITIS B VACCINES (1 of 3 - 3-dose series)] Future Scheduled 2022-07-05 65+ PNEUMOCOCCAL [facility] Test 04:28:50 VACCINE (1 - PCV) [code = 65+ PNEUMOCOCCAL VACCINE (1 - PCV)] Future Scheduled 2022-07-05 DIABETES: RETINAL EYE [facility] Test 04:28:50 EXAM [code = DIABETES: RETINAL EYE EXAM] Future Scheduled 2022-07-05 DIABETIC FOOT EXAM [facility] Test 04:28:50 [code = DIABETIC FOOT EXAM] Future Scheduled 2022-07-05 Hepatitis C screening [facility] Test 04:28:50 (procedure) [code = [id number]] Future Scheduled 2022-07-05 COLONOSCOPY SCREENING [facility] Test 04:28:50 [code = COLONOSCOPY SCREENING] Future Scheduled 2022-07-05 SHINGLES VACCINES (1 Met [facility] Test 04:28:50 of 2) [code = SHINGLES VACCINES (1 of 2)] Future Scheduled 2022-07-05 COVID-19 VACCINE (4 - Me [facility] Hospital Test 04:28:50 Booster for Pfizer series) [code = COVID-19 VACCINE (4 - Booster for Pfizer series)] Future Scheduled 2022-07-05 INFLUENZA VACCINE [facility] Test 04:28:50 [code = INFLUENZA VACCINE] Future Scheduled 2022-07-05 BREAST CANCER [facility] Test 04:28:50 SCREENING [code = BREAST CANCER SCREENING] Diagnostic Test 2020-02-14 [QLH] CBC (INCLUDES [facility] Pending 00:00:00 DIFF/PLT) [code = [QLH] CBC (INCLUDES DIFF/PLT)] Diagnostic Test 2020-02-14 [QLH] CMP W/EGFR [facility] Pending 00:00:00 [code = [QLH] CMP W/EGFR] Diagnostic Test 2020-01-10 Complete PFTs w/DLCO [facility] Pending 00:00:00 and Lung Volumes [code = Complete PFTs w/DLCO and Lung Volumes] Encounters Start End Encounter Admission Attending Care Care Encounter Source Date/Time Date/Time Type Type Clinicians Facility Department ID 2022-03-20 Outpatient [facility] [id number] [place] 06:49:35 [id number] [facility] 2022-11-26 2022-11-26 Outpatient ALEJANDRA DELUNA [id number] Alejandra 10:30:00 10:30:00 DEBBIE sharp 2022-11-21 2022-11-21 Refill [place], 1.2.840.1 [id number] Methodi 00:00:00 00:00:00 Magalie Luevano [id number] 3.430.2.7 Hospit a .3.280831 l .8 2022-10-29 2022-10-29 Refill [place], 1.2.840.1 [id number] Methodi 00:00:00 00:00:00 Magalie Luevano [id number] 3.430.2.7 Hospit a .3.451448 l .8 2022-10-05 2022-10-05 Refill [place], 1.2.840.1 [id number] Methodi 00:00:00 00:00:00 Magalie Luevano [id number] 3.430.2.7 Hospit a .3.617622 l .8 2022-09-09 2022-09-09 Refill [place], 1.2.840.1 [id number] Methodi 00:00:00 00:00:00 Magalie Luevano [id number] 3.430.2.7 Hospit a .3.596602 l .8 2022-08-15 2022-08-15 Refill [place], 1.2.840.1 [id number] Methodi 00:00:00 00:00:00 Magalie Luevano [id number] 3.430.2.7 Hospit a .3.629715 l .8 2022-08-01 2022-08-01 [facility] 1.2.840.1 [id number] Methodi 10:30:07 23:59:00 Encounter Magalie Luevano 33017.1.[address] 3.430.2.7 Hospit a .3.287453 l .8 2022-08-01 2022-08-01 [facility] 2100 [id number] [place] 00:00:00 00:00:00 MAGALIE [address] 2022-07-22 2022-07-22 [facility] Solange Izaguirre 1.2.840.1 [id number] Methodi 11:36:44 23:59:00 Encounter Ellie España 74848.1.[address] 3.430.2.7 Hospit a .3.763878 l .8 2022-07-22 2022-07-22 [facility], 1.2.840.1 [id number] [id number] Methodi 14:45:00 15:01:19 Visit Magalie Luevano 14073.1.[address] 3.430.2.7 Hospit a .3.539007 l .8 2022-07-22 2022-07-22 Outpatient ZINA, [facility] [id number] [place] 00:00:00 00:00:00 SOLANGE [address] 2022-07-22 2022-07-22 Outpatient DIEGO, [facility] 2100 [id number] [place] 00:00:00 00:00:00 MAGALIE [address] 2022-07-21 2022-07-21 Office Zina, 1.2.840.1 [id number] Methodi 13:00:00 13:09:55 Visit Solange 42154.1.[address] Rosa 3.430.2.7 Hosp macy .3.623898 l .8 2022-07-21 2022-07-21 Travel 1.2.840.1 1.2.408.752 2624 [id number] Methodi 00:00:00 00:00:[address] 3.430.2.7 0.2.7.3.698 Ho spita .3.473686 084.8 l .8 2022-07-21 2022-07-21 Outpatient ZINA, [facility] [id number] [place] 00:00:00 00:00:00 SOLANGE [address] 2022-05-30 2022-05-30 Orders [place], 1.2.840.1 [id number] [id number] Methodi 00:00:00 00:00:00 Only Magalie Luevano 72378.1.[address] 3.430.2.7 Hospit a .3.517917 l .8 2022-05-30 2022-05-30 Orders [place], 1.2.840.1 [id number] 84599 [id number] Methodi 00:00:00 00:00:00 Only Ruth 95497.1.[address] 3.430.2.7 Hospit a .3.651442 l .8 2022-05-30 2022-05-30 Travel 1.2.840.1 1.2.013.972 5324 [id number] Methodi 00:00:00 00:00:[address] 3.430.2.7 0.2.7.3.698 Ho spita .3.877339 084.8 l .8 2022-05-30 2022-05-30 Orders Diego, 1.2.840.1 [id number] Methodi 00:00:00 00:00:00 Only Magalie Luevano 73236.1.[address] 3.430.2.7 Hospit a .3.592591 l .8 2022-05-30 2022-05-30 Orders [place]ullen, 1.2.840.1 [id number] [id number] Methodi 00:00:00 00:00:00 Only Ruth 36793.1.[address] 3.430.2.7 Hospit a .3.935380 l .8 2022-05-30 2022-05-30 Travel 1.2.840.1 1.2.887.960 1186 [id number] Methodi 00:00:00 00:00:[address] 3.430.2.7 0.2.7.3.698 Ho spita .3.148866 084.8 l .8 2022-01-13 2022-01-13 [facility], 1.2.840.1 [id number] 21 [id number] Methodi 13:18:13 23:59:00 Encounter Magalie Luevano 29880.1.[address] 3.430.2.7 Hospit a .3.260719 l .8 2022-01-13 2022-01-13 [facility], 1.2.840.1 [id number] 21 [id number] Methodi 13:18:13 23:59:00 Encounter Magaile Luevano 42924.1.[address] 3.430.2.7 Hospit a .3.203170 l .8 2022-01-13 2022-01-13 [facility], 1.2.840.1 [id number] Methodi 15:45:00 15:45:00 Visit Magalie Luevano 77900.1.[address] 3.430.2.7 Hospit a .3.344958 l .8 2022-01-13 2022-01-13 Office [place], 1.2.840.1 [id number] [id number] Methodi 15:45:00 15:45:00 Visit Magalie Luevano 11108.1.[address] 3.430.2.7 Hospit a .3.244894 l .8 2022-01-13 2022-01-13 Travel 1.2.840.1 1.2.012.324 7912 [id number] Methodi 00:00:00 00:00:[address] 3.430.2.7 0.2.7.3.698 Ho spita .3.998940 084.8 l .8 2022-01-13 2022-01-13 Travel 1.2.840.1 1.2.579.414 0146 [id number] Methodi 00:00:00 00:00:[address] 3.430.2.7 0.2.7.3.698 Ho spita .3.448844 084.8 l .8 2021-11-22 2021-11-22 Travel 1.2.840.1 1.2.187.127 6897 [id number] Methodi 00:00:00 00:00:[address] 3.430.2.7 0.2.7.3.698 Ho spita .3.781182 084.8 l .8 2021-11-21 2021-11-21 Orders Doc, 1.2.840.1 [id number] [id number] Methodi 00:00:00 00:00:00 Only April 67704.1.[address] Samia 3.430.2.7 Hospit a .3.677366 l .8 2021-11-20 2021-11-20 Office Zina, 1.2.840.1 [id number] Methodi 13:00:00 13:36:08 Visit Solange 20760.1.[address] Rosa 3.430.2.7 Hosp macy .3.565132 l .8 2021-11-20 2021-11-20 Travel 1.2.840.1 1.2.364.246 0501 [id number] Methodi 00:00:00 00:00:[address] 3.430.2.7 0.2.7.3.698 Ho spita .3.335595 084.8 l .8 2021-08-02 2021-08-02 Telephone [place], 1.2.840.1 [id number] 2100 [id number] Methodi 00:00:00 00:00:[address] 3.430.2.7 Hospit a .3.012391 l .8 2021-08-01 2021-08-01 [facility], 1.2.840.1 [id number] 73522 Methodi 11:06:14 23:59:00 Encounter Julia 46510.1.[address] 3.430.2.7 Hospit a .3.813890 l .8 2021-08-01 2021-08-01 Outpatient ANDRADE, [facility] [id number] [place] 00:00:00 00:00:00 JULIA [address] 2021-08-01 2021-08-01 Travel 1.2.840.1 1.2.248.339 3783 [id number] Methodi 00:00:00 00:00:[address] 3.430.2.7 0.2.7.3.698 Ho spita .3.099640 084.8 l .8 2021-06-27 2021-06-27 Outpatient ANDRADE, [facility] [id number] 549 [place] 00:00:00 00:00:00 JULIA [address] 2021-03-21 2021-03-21 Outpatient ZINA, [facility] [id number] 719 [place] 00:00:00 00:00:00 SOLANGE [address] 2021-03-21 2021-03-21 Outpatient TACO, [facility] [id number] 524 [place] 00:00:00 00:00:00 TARRIK [address] 2020-12-21 2020-12-21 Outpatient DIEGO, [facility] 2100 [id number] [place] 00:00:00 00:00:00 MAGALIE [address] 2020-12-21 2020-12-21 Outpatient DIEGO, [facility] 2099 [id number] [place] 00:00:00 00:00:00 MAGALIE [address] 2020-12-21 2020-12-21 Outpatient [facility] [id number] [place] 00:00:00 00:00:[address] 2020-11-15 2020-11-15 Outpatient DIEGO, [facility] 2100 [id number] [place] 00:00:00 00:00:00 MAGALIE [address] 2020-10-26 2020-10-26 Outpatient [facility] [id number] 528 [place] 00:00:00 00:00:[address] 2020-10-11 2020-10-11 Outpatient DIEGO, [facility] 2099 [id number] [place] 00:00:00 00:00:00 MAGALIE [address] 2020-09-26 2020-09-26 Outpatient DIEGO, [place] [address] 2099 [id number] [place] 00:00:00 00:00:00 MAGALIE [address] 2020-09-21 2020-09-21 Outpatient DIEGO, [facility] 2100 [id number] [place] 00:00:00 00:00:00 MAGALIE [address] 2020-09-06 2020-09-06 Outpatient ANDRADE, [facility] [id number] [place] 00:00:00 00:00:00 JULIA [address] 2020-09-06 2020-09-06 Outpatient DIEGO, [facility] 2100 [id number] [place] 00:00:00 00:00:00 MAGALIE [address] 2020-08-29 2020-08-29 Outpatient ANDRADE, [facility] [id number] 531 [place] 00:00:00 00:00:00 JULIA [address] 2020-07-19 2020-07-19 Outpatient ZINA, [facility] [id number] 940 [place] 00:00:00 00:00:00 SOLANGE [address] 2020-07-10 2020-07-10 Outpatient DIEGO, [facility] 2100 [id number] [place] 00:00:00 00:00:00 MAGALIE [address] 2020-06-27 2020-06-27 Outpatient ANDRADE, [facility] [id number] [place] 00:00:00 00:00:00 JULIA [address] 2020-06-21 2020-06-21 Outpatient DIEGO, [facility] 2100 [id number] [place] 00:00:00 00:00:00 MAGALIE [address] 2020-06-13 2020-06-13 Outpatient DIEGO, [facility] 2100 [id number] [place] 00:00:00 00:00:00 MAGALIE [address] 2020-06-13 2020-06-13 Outpatient DIEGO, [place] [address] 2099 [id number] [place] 00:00:00 00:00:00 MAGALIE [address] 2020-06-11 2020-06-11 Outpatient DIEGO, [facility] 2100 [id number] [place] 00:00:00 00:00:00 MAGALIE [address] 2020-06-11 2020-06-11 Outpatient DIEGO, [facility] 2100 [id number] [place] 00:00:00 00:00:00 MAGALIE [address] 2020-06-06 2020-06-06 Outpatient DIEGO, [facility] 2100 [id number] [place] 00:00:00 00:00:00 MAGALIE [address] 2020-06-06 2020-06-06 Outpatient DIEGO, [facility] 2100 [id number] [place] 00:00:00 00:00:00 MAGALIE [address] 2020-06-06 2020-06-06 Outpatient DIEGO, [facility] 2100 [id number] [place] 00:00:00 00:00:00 MAGALIE [address] 2020-06-06 2020-06-06 Outpatient DIEGO, [facility] 2100 [id number] [place] 00:00:00 00:00:00 MAGALIE [address] 2020-06-01 2020-06-01 Outpatient ZINA, [facility] [id number] 195 [place] 00:00:00 00:00:00 SOLANGE [address] 2020-06-01 2020-06-01 Outpatient ZINA, [facility] [id number] [place] 00:00:00 00:00:00 SOLANGE [address] 2020-06-01 2020-06-01 Outpatient ZINA, [facility] [id number] 202 [place] 00:00:00 00:00:00 SOLANGE [address] 2020-06-01 2020-06-01 Outpatient ZINA, [facility] [id number] [place] 00:00:00 00:00:00 SOLANGE [address] 2020-05-30 2020-05-30 Outpatient ANDRADE, [facility] [id number] [place] 00:00:00 00:00:00 JULIA [address] 2020-04-24 2020-04-24 AYALA [facility] [id number] [place] 11:00:00 11:00:00 t; JOSH VELAZQUEZ M.D. lty - Physici Aby MORENO [facility] 2020-03-20 2020-03-20 Outpatient SHKEDY, [facility] [id number] [place] 00:00:00 00:00:00 MARY GRACE [address] 2020-03-20 2020-03-20 Outpatient SHKEDY, [facility] [id number] 348 [place] 00:00:00 00:00:00 MARY GRACE [address] 2020-03-13 2020-03-13 Outpatient DIEGO, [facility] 2100 [id number] [place] 00:00:00 00:00:00 MAGALIE [address] 2020-03-09 2020-03-09 Outpatient DIEGO, [facility] 2100 [id number] [place] 00:00:00 00:00:00 MAGALIE [address] 2020-02-13 2020-02-13 Outpatient DIEGO, [facility] 2100 [id number] [place] 00:00:00 00:00:00 MAGALIE [address] 2020-01-12 2020-01-12 Outpatient OROPEZA, [facility] [id number] 180 [place] 00:00:00 00:00:00 SOLANGE [address] 2020-01-10 2020-01-10 AYALA [facility] [id number] [place] 11:00:00 11:00:00 t; JOSH VELAZQUEZ M.D. lty - Physici BINH, M.D. [facility] 2019-12-28 2019-12-28 Outpatient Sony [facility] 795 [id number] [facility] 07:20:00 07:20:00 _AVianey 858[address] Family Practic e 2019-11-29 2019-11-29 Appointmen CAROLINE AYALA [facility] [id number] [id number] [place] 08:00:00 08:00:00 t; JOSH VELAZQUEZ M.D. lty - Physici BINH, M.D. [facility] 2019-09-20 2019-09-20 Outpatient JESSE [facility] [id number] 793 [place] 00:00:00 00:00:00 MARY GRACE [address] Results Test Description Test Time Test Comments Results Result Comments Source SARS-CoV-2 (COVID-19) RNA [Presence] in Respiratory sp ecimen by 2020-09-21 19:02:35 RAGHAV with probe detection Test Item Value Reference Range Interpretation Comme nts SARS-CoV-2 (COVID-19) RNA [Presence] in Respiratory Not detected No t-Detected specimen by RAGHAV with probe detection (test code = 78579-4) [facility] RNA [Presence] in Respiratory specimen by RAGHAV with probe [id number] 22:05:04 Test Item Value Reference Range Interpretation Comments SARS-CoV-2 (COVID-19) RNA Not detected Not-Detected [Presence] in Respiratory specimen by RAGHAV with probe detection (test code = 39765-8) [facility][U] XRAY SPINE LUMBOSACRAL 2 OR 3 VWS [id number] 2020-04-24 11:44:00 Test Item Value Reference Range Interpretation Comments XR SPINE LUMBOSACRAL EXAM: XR SPINE 2 OR 3 VWS (test code LUMBOSACRAL 2 OR 3 VWS = XR SPINE DATE: 04/24/2020 12:11 PM LUMBOSACRAL 2 OR 3 CDT INDICATION: VWS) Rheumatoid arthritis involving both hands with positive rheumatoid factor; Low back pain COMPARISON: None available TECHNIQUE: AP, coned lateral and lateral radiographs of the lumbosacral spine FINDINGS: 5 lumbar type, non-rib bearing vertebral bodies are present. Chronic wedging of the L1 vertebral body is present, with degenerative disc height loss and large osteophytes at all levels. Moderate to severe mid and lower lumbar spine facet hypertrophy is most severe at L5-S1 on the left. Dextroscoliotic curvature of the upper lumbar spine, centered at L1-L2 is present, with compensatory slight levoscoliotic curvature at L4-5. Interspinous narrowing is most evident at L3-4 and L4-5, with questionable ankylosis of the L5-S1 spinous processes.. Few, scattered vascular calcifications are present. IMPRESSION: Degenerative disc height loss at all levels of the lumbar spine, with severe mid and lower lumbar facet arthropathy. 04/24/2020 3:53 PM CDT Aura Nava [facility][QL] CBC (INCLUDES DIFF/PLT)2020-02-14 22:00:00 Test Item Value Reference Range Interpretation Comments WHITE BLOOD CELL 7.8 3.8-10.8 N COUNT (test code = {Thousand/u} WHITE BLOOD CELL COUNT) RED BLOOD CELL 4.00 3.80-5.10 N COUNT (test code = {Million/uL} RED BLOOD CELL COUNT) HEMAGLOBIN; Normal 12.0 g/dl 11.7-15.5 N (test code = 63747-9) HEMATOCRIT; Normal 36.6 % 35.0-45.0 N (test code = 4544-3) MCV; Normal (test 91.5 fL 80.0-100.0 N code = 787-2) MCHC; Normal (test 32.8 g/dl 32.0-36.0 N code = 69068-5) RDW; Normal (test 13.4 % 11.0-15.0 N code = 788-0) PLATELET COUNT; 281 140-400 N Normal (test code = {Thousand/u} 777-3) MPV; Normal (test 10.2 fL 7.5-12.5 N code = 90767-0) ABSOLUTE 4719 6791-4619 N NEUTROPHILS (test {cells/uL} code = ABSOLUTE NEUTROPHILS) ABSOLUTE 2324 850-3900 N LYMPHOCYTES (test {cells/uL} code = ABSOLUTE LYMPHOCYTES) ABSOLUTE MONOCYTES 445 200-950 N (test code = {cells/uL} ABSOLUTE MONOCYTES) ABSOLUTE 211 15-500 N EOSINOPHILS (test {cells/uL} code = ABSOLUTE EOSINOPHILS) ABSOLUTE BASOPHILS 101 0-200 N (test code = {cells/uL} ABSOLUTE BASOPHILS) NEUTROPHILS (test 60.5 % N code = NEUTROPHILS) LYMPHOCYTES (test 29.8 % N code = LYMPHOCYTES) MONOCYTES; Normal 5.7 % N (test code = 92543-5) EOSINOPHILS; Normal 2.7 % N (test code = 08952-6) BASOPHILS; Normal 1.3 % N NO COLLECT ION DATE (test code = [place] [address]-1) USEDTHE DATE E SPECIMEN WAS RE CEIVED BY STACY NOVOA THE COLLECTION DATE. IF THISIS INCOR RECT, PLEASE CONTACT CLIENT SERVICES.PHONE NUMBER: [phone] [facility][QL] CMP [id number] 22:00:00 Test Item Value Reference Range Interpretation Comments GLUCOSE; Above 185 mg/dl 65-99 Fasting refer ence High Threshold interval For someone (test code = without known d chelsey, 1547-9) a glucosevalue >125 mg/dL indicates that they may havedi abetes and this should be confirmed with afollow-up test . UREA NITROGEN 24 mg/dl 7-25 N (BUN) (test code = UREA NITROGEN (BUN)) CREATININE (test 1.34 mg/dl 0.50-0.99 For patient s >49 years code = CREATININE) of age, t he reference limitfor Creati nine is approximately 1 3% higher for peopleidentifie d as -Melina n. eGFR NON- 41 > OR = 60 FRENCH (test {ML/MIN/1.7} code = eGFR NON-) eGFR 47 > OR = 60 FRENCH (test {ML/MIN/1.7} code = eGFR ) BUN/CREATININE 18 {CALC} 6-22 N RATIO (test code = BUN/CREATININE RATIO) SODIUM (test code 137 mmol/L 135-146 N = SODIUM) POTASSIUM (test 4.4 mmol/L 3.5-5.3 N code = POTASSIUM) CHLORIDE (test 101 mmol/L 98-110 N code = CHLORIDE) CARBON DIOXIDE 28 mmol/L 20-32 N (test code = CARBON DIOXIDE) CALCIUM (test code 9.7 mg/dl 8.6-10.4 N = CALCIUM) PROTEIN, TOTAL 7.2 g/dl 6.1-8.1 N (test code = PROTEIN, TOTAL) ALBUMIN (test code 4.1 g/dl 3.6-5.1 N = ALBUMIN) GLOBULIN (test 3.1 {G/DL 1.9-3.7 N code = GLOBULIN) CALC} ALBUMIN/GLOBULIN 1.3 {CALC} 1.0-2.5 N RATIO (test code = ALBUMIN/GLOBULIN RATIO) BILIRUBIN, TOTAL; 0.3 mg/dl 0.2-1.2 N Normal (test code = 82880-6) ALKALINE 93 u/l 37-153 N PHSPHATASE (test code = ALKALINE PHSPHATASE) AST; Normal (test 15 u/l 10-35 N code = 1916-6) ALT; Normal (test 14 u/l 6-29 N code = 1742-6) [facility]] CBC (INCLUDES DIFF/PLT)2020-01-10 11:45:01 Test Item Value Reference Range Interpretation Comments WBC (test code = 6690-2) 10.0 {K/CMM} 3.7-10.4 RBC (test code = 789-8) 4.36 {M/CMM} 4.20-5.40 Hgb (test code = 718-7) 12.8 g/dl 12.0-16.0 Hct (test code = 43267-3) 38.9 % 36.0-48.0 MCV (test code = 787-2) 89.3 fL 80.0-98.0 MCH (test code = 785-6) 29.3 pg 27.0-31.0 MCHC (test code = 786-4) 32.9 g/dl 32.0-36.0 RDW (test code = 788-0) 14.2 % 11.5-14.5 Platelet (test code = 98495-1) 279 {K/CMM} 133-450 Mean Platelet Volume (test code 8.3 fL 7.4-10.4 = 68843-6) [facility]] [id number] 11:45:01 Test Item Value Reference Range Interpretation Comments Segmented Neutrophils (test code 67.6 % 45.0-75.0 = 49338-9) Monocytes (test code = 54967-0) 8.4 % 2.0-12.0 Lymphocytes (test code = 39573-8) 21.1 % 20.0-40.0 Eosinophils (test code = 48360-3) 1.4 % 0.0-4.0 Basophils; Above High Threshold 1.5 % 0.0-1.0 (test code = 706-2) Segs-Bands # (test code = 6.8 {K/CMM} 1.5-8.1 59728-9) Lymphocytes # (test code = 2.1 {K/CMM} 1.0-5.5 10458-8) Monocytes # (test code = 71630-5) 0.8 {K/CMM} 0.0-0.8 Eosinophils # (test code = 0.1 {K/CMM} 0.0-0.5 84337-2) Basophils # (test code = 99743-2) 0.2 {K/CMM} 0.0-0.2 [facility]] CMP [id number] 11:45:01 Test Item Value Reference Range Interpretation Comments Sodium Level 138 {mEq/l} 135-145 (test code = 2951-2) Potassium Level 4.9 {mEq/l} 3.5-5.1 (test code = 2823-3) Chloride Level 104 {mEq/l} 95-109 (test code = 5-0) Carbon Dioxide 29 {mEq/l} 24-32 (test code = 2027-9) AGAP; Below Low 9.9 {mEq/l} 10.0-20.0 Threshold (test code = 84615-0) Glucose Lvl; 123 mg/dl 70-99 Adult reference range Above High values reflect the Threshold (test clinical mariella delinesof the code = 2345-7) [employer]. Creatinine Lvl 1.20 mg/dl 0.50-1.40 (test code = 2160-0) Blood Urea 36 mg/dl 7-22 Nitrogen; Above High Threshold (test code = 3094-0) BUN/Creatinine 30 6-25 Ratio; Above High Threshold (test code = 3097-3) Total Protein 8.0 g/dl 6.4-8.4 (test code = 2885-2) Albumin Lvl (test 4.1 g/dl 3.5-5.0 code = 1751-7) Globulin (test 3.9 g/dl 2.7-4.2 code = 36389-1) A/G Ratio (test 1.1 0.7-1.6 code = 1759-0) Calcium Level 9.5 mg/dl 8.5-10.5 Total (test code = 32813-5) ALT (test code = 33 u/l 0-65 1743-4) AST (test code = 22 u/l 0-37 18648-8) Bili Total (test 0.4 mg/dl 0.2-1.3 code = 1975-2) Alk Phos (test 111 u/l 39-136 The pediatric reference code = 1783-0) ranges for th is test represent a CLSI-basedtrans ference of the CALIPER christina abase of pediatric refer ence intervals to e[employer]iemens Noble analyzer (Clinical Biochemistry 46 (2013): 3637-2378). [facility] [employer] [facility] has not internally validated these reference ranges and therefore they should be used only in th e context of a thoroughcl inical assessment. eGFR (test code = 47 The eGFR i s calculated 33673-0) {ML/MIN/1.7} using the CKD-E PI formula. In mos t young, healthyindividu als the eGFR will be >9 0 mL/min/1.73m2. The eGFR declines with a ge. AneGFR of 60-89 may be normal in some population s, particularly th e elderly, forwhom the CKD -EPI formula has not been extensively kailey idated. Use of the eGFR isnot recommended in the following populations:Ind ividuals with unstable c reatinine concentrations, including patient s and those with seri ous co-morbid conditions.Carla ents with extremes in mus michell mass or diet.The christina a above are obtained fr om the National Kidney Disease Education Progr am(NKDEP) which rowan soria recommends that when the eGFR is used in patientswith ex tremes of body mass index for purposes of anastacio g dosing, the eGFR should be multiplied by t he estimated BMI. [facility][QL] C-REACTIVE [id number] 11:45:01 Test Item Value Reference Range Interpretation Comments CRP (test code = CRP) 20.4 mg/L <=2.9 [facility][QL] SED RATE BY MODIFIED [id number] 11:45:01 Test Item Value Reference Range Interpretation Comments Sedimentation Rate; Above High 25 {mm/hr} 0-20 Threshold (test code = 06436-1) [facility] Chest 2 views [id number] 09:40:00Exam: Two-view chest x- rayReason for Exam: - SOBComparison Exam: NoneDiscussion:Cardiomediastinal lamont houette is within normal limits. Both hemidiaphragms wellvisualized. No pulmonary edema or pleural effusions. No focal lungconsolidations. Trachea is midline.No acute bony abnormalities. Mild multilevel degenerative disc disease seenwithin the thoracic spine.Impression:1. No acute cardiopulmonary abnor malities.--Read by: Max Dominguez MDDictated Date/time: 11/29/19 10:18Electronically Signed by: Max Dominguez MD 11/29/2009:21FINAL REPORT [facility] Hand AP lateral oblique Bilateral [id number] 09:40:00 EXAM: Hand 3 views Bilateral DXHISTORY: - M25.50 Pain in unspecified jointCOMPARISON: None3 views ofboth handsFINDINGS: There are erosive changes with joint space narrowing at the rightindex finger DIP joint and the left index PIP joint. There is moderate tosevere degenerative change of other IP joints. Moderate bilateral thumbcarpometacarpal change. No fracture or significant soft tissue swelling.IMPRESSION: Degenerative and erosive changes.--Read by: Ganga Pascal MDDictated Date/time: 11/29/19 10:38Electronically Signed by: Ganga Pascal MD 11/29/2009:43FINAL REPORTRI PhysiciansHip bilat w pelvis 3/4 views [id number] 09:40:00EXAM: Hip bilat w pelvis 3/4 views DXHISTORY: - M25.50 Pain in unspecified jointCOMPARISON: NoneAP pelvis and AP and lateral views ofFINDINGS:No significant joint space narrowing or osteophyte formation. No fracture orevidence of avascular necrosis. There is degenerative change of the lumbosacraljunction.IMPRESSION: No acute abnormality.--Read by: Ganga Pascal MDDictated Date/time: 11/29/19 10:43Electronically Signed by: Ganga Pascal MD 11/29/2009:44FINAL REPORTUT PhysiciansXRAY Foot 2 Views Bilateral [id number] 09:40:00EXAM: Foot 2 views bilateral DXHISTORY: - M25.50 Pain in unspecified joint,COMPARISON: None2 views of both feetFINDINGS: Prominent bilateral superior and inferior calcaneal spurs. Smallsuperior midfoot spurs. Mild right distal anterior tibial osteophyte formation.No fracture or dislocation.IMPRESSION:No acute abnormality.--Read by: Ganga Pascal MDDictated Date/time: 11/29/19 10:44Electronically Signed by: Ganga Pascal MD 11/29/2009:46FINAL REPORTUT Physicians[[facility]] CBC (INCLUDES DIFF/PLT) 2019-11-29 09:18:01 Test Item Value Reference Range Interpretation Comments WBC (test code = 6690-2) 7.8 {K/CMM} 3.7-10.4 RBC; Below Low Threshold (test 4.15 {M/CMM} 4.20-5.40 code = 789-8) Hgb (test code = 718-7) 12.4 g/dl 12.0-16.0 Hct (test code = 81803-3) 37.6 % 36.0-48.0 MCV (test code = 787-2) 90.4 fL 80.0-98.0 MCH (test code = 785-6) 29.8 pg 27.0-31.0 MCHC (test code = 786-4) 33.0 g/dl 32.0-36.0 RDW (test code = 788-0) 13.5 % 11.5-14.5 Platelet (test code = 46761-3) 252 {K/CMM} 133-450 Mean Platelet Volume (test code 8.5 fL 7.4-10.4 = 70490-7) [facility]] [id number] 09:18:01 Test Item Value Reference Range Interpretation Comments Segmented Neutrophils (test code 57.0 % 45.0-75.0 = 10157-0) Monocytes (test code = 46257-0) 8.8 % 2.0-12.0 Lymphocytes (test code = 60972-5) 29.8 % 20.0-40.0 Eosinophils (test code = 14305-2) 3.2 % 0.0-4.0 Basophils; Above High Threshold 1.2 % 0.0-1.0 (test code = 706-2) Segs-Bands # (test code = 4.4 {K/CMM} 1.5-8.1 18825-3) Lymphocytes # (test code = 2.3 {K/CMM} 1.0-5.5 98125-1) Monocytes # (test code = 32273-6) 0.7 {K/CMM} 0.0-0.8 Eosinophils # (test code = 0.2 {K/CMM} 0.0-0.5 04643-0) Basophils # (test code = 51188-4) 0.1 {K/CMM} 0.0-0.2 [facility]] HEPATITIS [id number] 09:18:01 Test Item Value Reference Range Interpretation Comments Hepatitis B Surface Antigen (test Negative Negative code = 5195-3) Hepatitis C Antibody (test code = Negative Negative 74887-4) Hepatitis B Core IgM (test code = Negative Negative 90306-6) Hepatitis A IgM (test code = Negative Negative 88264-0) [facility]] CMP [id number] 09:18:01 Test Item Value Reference Range Interpretation Comments Sodium Level 140 {mEq/l} 135-145 (test code = 2951-2) Potassium Level 4.5 {mEq/l} 3.5-5.1 (test code = 2823-3) Chloride Level 106 {mEq/l} 95-109 (test code = 2075-0) Carbon Dioxide 27 {mEq/l} 24-32 (test code = 2027-9) AGAP (test code = 11.5 {mEq/l} 10.0-20.0 86138-1) Glucose Lvl; 116 mg/dl 70-99 Adult reference range Above High values reflect the Threshold (test clinical mariella delinesof the code = 2345-7) [employer]. Creatinine Lvl 1.20 mg/dl 0.50-1.40 (test code = 2160-0) Blood Urea 24 mg/dl 7-22 Nitrogen; Above High Threshold (test code = 3094-0) BUN/Creatinine 20 6-25 Ratio (test code = 3097-3) Total Protein 7.8 g/dl 6.4-8.4 (test code = 2885-2) Albumin Lvl (test 4.0 g/dl 3.5-5.0 code = 1751-7) Globulin (test 3.8 g/dl 2.7-4.2 code = 98294-3) A/G Ratio (test 1.1 0.7-1.6 code = 1759-0) Calcium Level 8.9 mg/dl 8.5-10.5 Total (test code = 29482-2) ALT (test code = 25 u/l 0-65 1743-4) AST (test code = 20 u/l 0-37 28907-6) Bili Total (test 0.3 mg/dl 0.2-1.3 code = 1975-2) Alk Phos (test 119 u/l 39-136 The pediatric reference code = 1783-0) ranges for th is test represent a CLSI-basedtrans ference of the CALIPER christina abase of pediatric refer ence intervals to e[employer]iemens Noble analyzer (Clinical Biochemistry 46 (2013): 1332-6173). [facility] [employer] [facility] has not internally validated these reference ranges and therefore they should be used only in th e context of a thoroughcl inical assessment. eGFR (test code = 47 The eGFR i s calculated 29675-1) {ML/MIN/1.7} using the CKD-E PI formula. In mos t young, healthyindividu als the eGFR will be >9 0 mL/min/1.73m2. The eGFR declines with a ge. AneGFR of 60-89 may be normal in some population s, particularly th e elderly, forwhom the CKD -EPI formula has not been extensively kailey idated. Use of the eGFR isnot recommended in the following populations:Ind ividuals with unstable c reatinine concentrations, including patient s and those with seri ous co-morbid conditions.Carla ents with extremes in mus michell mass or diet.The christina a above are obtained fr om the National Kidney Disease Education Progr am(NKDEP) which rowan soria recommends that when the eGFR is used in patientswith ex tremes of body mass index for purposes of anastacio g dosing, the eGFR should be multiplied by t he estimated BMI. [facility][QLH] RHEUMATOID [id number] 09:18:01 Test Item Value Reference Range Interpretation Comments Rheumatoid Factor Quantitative; 428 {IU/ml} 0-20 Above High Threshold (test code = 17402-3) [facility]] C-REACTIVE [id number] 09:18:01 Test Item Value Reference Range Interpretation Comments CRP (test code = CRP) 18.8 mg/L <=2.9 [facility]] SED RATE BY MODIFIED [id number] 09:18:01 Test Item Value Reference Range Interpretation Comments Sedimentation Rate; Above High 30 {mm/hr} 0-20 Threshold (test code = 27479-9) [facility][QH] CYCLIC CITRULLINATED PEPTIDE (CCP) AB (IGG)2019-11-29 09:18:01 Test Item Value Reference Range Interpretation Comments Cyclic Citrulline Peptide Antibody <0.5 <=2.9 (test code = 05654-2) [facility][LH] Antinuclear [id number] 09:18:01 Test Item Value Reference Range Interpretation Comments Antinuclear Antibody Screen; Positive Negative A Abnormal (test code = 13106-4) [facility][H] Antinuclear Antibody [id number] 09:18:01 Test Item Value Reference Range Interpretation Comments VAMSHI Titer; Abnormal (test code = 1:40 Negative A 5048-4) [facility][H] Antinuclear Antibody [id number] 09:18:01 Test Item Value Reference Range Interpretation Comments VAMSHI Interp (test code Pattern appears = VAMSHI Interp) speckled [facility][QH] T-Spot [id number] 09:18:01 Test Item Value Reference Range Interpretation Comments T-Spot.TB (test code = T-Spot.TB) Negative Negative [facility]
[2022-11-24 14:52] LABS: Absolute Lymphocytes (CBC) 1.8 K/uL (0.7-4.9); Hematocrit 35.9 % (36.0-45.0); Lymphocytes % 11.6 % (15.3-44.8); MCV 89.6 fL (80-100); MPV 8.7 fL (7.6-11.3); RBC Red Blood Cell Count 4.01 M/uL (3.86-4.86)
[2022-11-24 15:03] LABS: Potassium 4.7 mmol/L (3.5-5.1)
--- NOTE | 2022-11-24 15:04 | RAD REPORT ---
EXAM DESCRIPTION: RAD - Chest Pa And Lat (2 Views) - 11/24/2022 2:45 pm CLINICAL HISTORY: cough, sob Chest pain. COMPARISON: No comparisons TECHNIQUE: PA and lateral views of the chest were obtained. FINDINGS: The lungs are hyperexpanded compatible with COPD. The heart is upper limit of normal in si ze. No fracture or aggressive bony process. IMPRESSION: COPD without acute process identified.
[2022-11-24] MEDS ORDERED: METHYLPREDNISOLONE 125 MG INJ ONE (15:16)
[2022-11-24] MEDS ORDERED: LEVALBUTEROL 1.25 MG/3 ML NEB ONE (15:16)
[2022-11-24] MEDS ORDERED: MAGNESIUM SULFATE 1 gm IVPB 1 GM/100 ML BAG IV ONE (15:16)
[2022-11-24 15:24] LABS: SARS-COV-2 RT PCR NEGATIVE (NEGATIVE)
--- NOTE | 2022-11-24 16:30 | EDPHYS ---
Physician Documentation [facility] Name: Annabella Trevino Age: 67 yrs Sex: Female : 1955 Arrival Date: 11/24/2022 Time: 13:54 Bed 23 Private MD: ED Physician Petar Trujillo HPI: 11/24 14:08 This 67 yrs old Female presents to ER via Ambulatory with complaints of Breathing jmm Difficulty. 14:08 The patient has shortness of breath at rest. Onset: The symptoms/episode began/occurred jmm gradually, 1 month(s) ago. Duration: The symptoms are continuous. The patient's shortness of breath is aggravated by nothing, is alleviated by inhaler. Associated signs and symptoms: Pertinent positives: non-productive cough, fever, wheezing, Pertinent negatives:. The patient has experienced similar episodes in the past, several times. Historical: - PMHx: 14:05 Asthma; Diabetes - NIDDM; Hyperlipidemia; jh5 - Immunization history:: Adult Immunizations up to date. - Social history:: Smoking status: Patient denies any tobacco usage or history of. ROS: 14:08 Constitutional: Positive for body aches. jmm 14:08 Respiratory: Positive for cough, shortness of breath, wheezing. 14:08 All other systems are negative. Exam: 14:08 Constitutional: This is a well developed, well nourished patient who is awake, alert, jmm and in no acute distress. Head/Face: atraumatic. Eyes: EOMI, no conjunctival erythema appreciated ENT: Moist Mucus Membranes Neck: Trachea midline, Supple Chest/axilla: Normal chest wall appearance and motion. Cardiovascular: Regular rate and rhythm. No edema appreciated 14:08 Abdomen/GI: Non distended Back: Normal ROM Skin: General appearance color normal MS/ Extremity: Moves all extremities, no obvious deformities appreciated, no edema noted to the lower extremities Neuro: Awake and alert Psych: Behavior is normal, Mood is normal, Patient is cooperative and pleasant 14:08 Respiratory: the patient does not display signs of respiratory distress, Respirations: normal, Breath sounds: wheezing: that is moderate, is scattered. Vital Signs: 14:03 BP 156 / 74; Pulse 102; Resp 22; Temp 98.4; Pulse Ox 97% on R/A; Weight 111.13 kg; jh5 Height 5 ft. 9 in. (175.26 cm); Pain 0/10; 15:00 BP 146 / 52; Pulse 94; Resp 20; Pulse Ox 99% ; mb9 16:12 BP 140 / 56; Pulse 88; Resp 20; Pulse Ox 99% ; mb9 16:25 BP 133 / 64; Pulse 78; Resp 18; Pulse Ox 96% on R/A; mb9 14:03 Body Mass Index 36.18 (111.13 kg, 175.26 cm) [facility] MDM: 14:08 Patient medically screened. [facility] 16:28 Data reviewed: vital signs, nurses notes. I considered the following discharge [facility] prescriptions or medication management in the emergency department Medications were administered in the Emergency Department. See MAR. Care significantly affected by the following chronic conditions: Chronic Obstructive Pulmonary Disease. Counseling: I had a detailed discussion with the patient and/or guardian regarding: the historical points, exam findings, and any diagnostic results supporting the discharge/admit diagnosis, lab results, radiology results, the need for outpatient follow up, to return to the emergency department if symptoms worsen or persist or if there are any questions or concerns that arise at home. 11/24 14:09 Order name: CBC with Diff; Complete Time: 15:05 [facility] 11/24 14:09 Order name: BMP; Complete Time: 15:05 [facility] 11/24 14:09 Order name: Lactate w/ 2H reflex if indic.; Complete Time: 15:25 [facility] 11/24 14:09 Order name: COVID-19/FLU A+B; Complete Time: 15:25 [facility] 11/24 14:09 Order name: Chest Pa And Lat (2 Views) XRAY; Complete Time: 15:05 [facility] 11/24 14:09 Order name: Saline Lock; Complete Time: 14:43 [facility] Administered Medications: 15:24 Drug: Magnesium Sulfate 1 grams Route: IVPB; Infused Over: 1 hrs; Site: right forearm; mb9 16:20 Follow up: Response: No adverse reaction; IV Status: Completed infusion [facility] 15:24 Drug: Xopenex (levalbuterol) (3) 1.25 mg Route: Inhalation; mb9 16:08 Follow up: Response: No adverse reaction 9 15:24 Drug: SOLU-Medrol (methylPrednisoLONE) 125 mg Route: IVP; Site: right forearm; mb9 16:08 Follow up: Response: No adverse reaction mb9 Disposition: 18:16 Co-signature as Attending Physician, Petar Trujillo MD I reviewed the patient's care rt provided by the Advanced Practice Provider and agree with the diagnosis and treatment plan. Disposition Summary: 11/24/22 16:29 Discharge Ordered Location: Home [facility] Condition: Stable [facility] Diagnosis - COPD/ Chronic obstructive pulmonary disease with (acute) exacerbation [facility] Followup: [facility] - With: Private Physician - When: 2 - 3 days - Reason: Recheck today's complaints, Continuance of care, Re-evaluation by your physician Discharge Instructions: - Discharge Summary Sheet [facility] - Chronic Obstructive Pulmonary Disease Exacerbation [facility] Forms: - Medication Reconciliation Form [facility] - Thank You Letter [facility] - Antibiotic Education [facility] - Prescription Opioid Use [facility] Prescriptions: - albuterol sulfate 90 mcg/actuation Inhalation HFA aerosol inhaler - inhale 2 puff by INHALATION route every 4 hours As needed; 1 Pump; Refills: 0, [facility] Product Selection Permitted - Prednisone 20 mg Oral Tablet - take 3 tablets by ORAL route once daily for 5 days; 15 tablet; Refills: 0, [facility] Product Selection Permitted - Zithromax Z-Aubrey 250 mg Oral Tablet - take 1 tablet by ORAL route as directed for 5 days Day 1 - take two (2) tablets [facility] one time. Day 2, 3, 4 , 5 take one (1) tablet once daily.; 6 tablet; Refills: 0, Product Selection Permitted Signatures: Dispatcher [employer] EDTimo Manuel PA PA jmm Rees, Jessica RN RN jh5 Jackie Velasquez RN RN mb9 Petar Trujillo MD MD rt Corrections: (The following items were deleted from the chart) 17:54 14:08 The patient has not experienced similar symptoms in the past, [facility]
--- NOTE | 2022-11-24 16:30 | ER ---
Nurse's Notes [facility] Name: Annabella Trevino Age: 67 yrs Sex: Female : 1955 Arrival Date: 11/24/2022 Time: 13:54 Bed 23 Private MD: Diagnosis: COPD/ Chronic obstructive pulmonary disease with (acute) exacerbation Presentation: 11/24 14:03 Chief complaint: Patient states: I have been short of breath for about a week; I have jh5 asthma and a sinus infection but I cant see my PCP cause they retired and the new doctor's that took over the office arent cleared by my insurance yet. It's just getting harder and harder to breathe though. Coronavirus screen: Vaccine status: Patient reports receiving the 2nd dose of the covid vaccine. Client denies travel out of the [place] in the last 14 days. Ebola Screen: Patient negative for fever greater than or equal to 101.5 degrees Fahrenheit, and additional compatible Ebola Virus Disease symptoms Patient denies exposure to infectious person. Patient denies travel to an Ebola-affected area in the 21 days before illness onset. Initial Sepsis Screen: Does the patient meet any 2 criteria? RR > 20 per min. HR > 90 bpm. Does the patient have a suspected source of infection? Yes: Productive cough/pneumonia. Risk Assessment: Do you want to hurt yourself or someone else? Patient reports no desire to harm self or others. Onset of symptoms was November 17, 2022. 14:03 Method Of Arrival: Ambulatory [facility] 14:03 Acuity: RENETTA 3 jh5 Triage Assessment: 14:05 General: Appears uncomfortable, obese, well groomed, well developed, Behavior is calm, jh5 cooperative, appropriate for age. Pain: Denies pain. Respiratory: Reports shortness of breath cough that is labored breathing Onset: The symptoms/episode began/occurred gradually, the patient has mild shortness of breath. Historical: - PMHx: 14:05 Asthma; Diabetes - NIDDM; Hyperlipidemia; jh5 - Immunization history:: Adult Immunizations up to date. - Social history:: Smoking status: Patient denies any tobacco usage or history of. Screenin:59 [facility] ED Fall Risk Assessment (Adult) History of falling in the last 3 months, mb9 including since admission No falls in past 3 months (0 pts) Confusion or Disorientation No (0 pts) Intoxicated or Sedated No (0 pts) Impaired Gait No (0 pts) Mobility Assist Device Used No (0 pt) Altered Elimination No (0 pt) Score/Fall Risk Level 0 - 2 = Low Risk Oriented to surroundings, Maintained a safe environment. Abuse screen: Denies threats or abuse. Nutritional screening: No deficits noted. Tuberculosis screening: No symptoms or risk factors identified. Assessment: 14:08 General: Appears in no apparent distress. comfortable, Behavior is calm, cooperative. mb9 Pain: Complains of pain in back Pain does not radiate. Pain currently is 3 out of 10 on a pain scale. Quality of pain is described as throbbing, Pain began 2-3 days ago. Is intermittent, Aggravated by coughing. Neuro: Christopher Agitation-Sedation Scale (RASS): 0 - Alert and Calm Level of Consciousness is awake, alert, obeys commands, Oriented to person, place, time, situation, Appropriate for age. Cardiovascular: Heart tones S1 S2 present Rhythm is regular. Respiratory: Reports shortness of breath on exertion cough that is non-productive, Airway is patent Respiratory effort is even, unlabored, Respiratory pattern is tachypnea Breath sounds with crackles bilaterally. Breath sounds with wheezes. GI: Abdomen is round non-distended, Bowel sounds present X 4 quads. Abd is soft and non tender X 4 quads. Reports diarrhea. : No signs and/or symptoms were reported regarding the genitourinary system. EENT: No signs and/or symptoms were reported regarding the EENT system. Derm: Skin is pink, warm \T\ dry. Musculoskeletal: Range of motion: intact in all extremities. 15:01 Reassessment: No changes from previously documented assessment. Patient and/or family mb9 updated on plan of care and expected duration. Pain level reassessed. Patient is alert, oriented x 3, equal unlabored respirations, skin warm/dry/pink. 16:12 Reassessment: No changes from previously documented assessment. Patient and/or family mb9 updated on plan of care and expected duration. Pain level reassessed. Patient is alert, oriented x 3, equal unlabored respirations, skin warm/dry/pink. Patient states feeling better. Patient states symptoms have improved. 16:39 Reassessment: No changes from previously documented assessment. Patient and/or family mb9 updated on plan of care and expected duration. Pain level reassessed. Patient is alert, oriented x 3, equal unlabored respirations, skin warm/dry/pink. Patient states feeling better. Patient states symptoms have improved. Vital Signs: 14:03 BP 156 / 74; Pulse 102; Resp 22; Temp 98.4; Pulse Ox 97% on R/A; Weight 111.13 kg; [facility] Height 5 ft. 9 in. (175.26 cm); Pain 0/10; 15:00 BP 146 / 52; Pulse 94; Resp 20; Pulse Ox 99% ; mb9 16:12 BP 140 / 56; Pulse 88; Resp 20; Pulse Ox 99% ; mb9 16:25 BP 133 / 64; Pulse 78; Resp 18; Pulse Ox 96% on R/A; mb9 14:03 Body Mass Index 36.18 (111.13 kg, 175.26 cm) [facility] ED Course: 13:54 Patient arrived in ED. am2 13:55 Timo Nava PA is PHCP. [facility] 13:55 Petar Trujillo MD is Attending Physician. [facility] 14:00 Jackie Velasquez RN is Primary Nurse. mb9 14:05 Triage completed. 5 14:05 Arm band placed on right wrist. jh5 14:05 Placed in gown. Bed in low position. Call light in reach. Side rails up X 1. Client mb9 placed on continuous cardiac and pulse oximetry monitoring. NIBP monitoring applied. 14:20 Inserted saline lock: 22 gauge in right forearm, using aseptic technique. Blood mb9 collected. 14:43 COVID-19/FLU A+B Sent. mb9 14:44 Lactate w/ 2H reflex if indic. Sent. mb9 14:44 BMP Sent. mb9 14:44 CBC with Diff Sent. mb9 14:47 Chest Pa And Lat (2 Views) XRAY In Process Unspecified. EDMS 16:00 No provider procedures requiring assistance completed. mb9 16:39 IV discontinued, intact, bleeding controlled, No redness/swelling at site. Pressure mb9 dressing applied. Administered Medications: 15:24 Drug: Magnesium Sulfate 1 grams Route: IVPB; Infused Over: 1 hrs; Site: right forearm; mb9 16:20 Follow up: Response: No adverse reaction; IV Status: Completed infusion mb9 15:24 Drug: Xopenex (levalbuterol) (3) 1.25 mg Route: Inhalation; mb9 16:08 Follow up: Response: No adverse reaction mb9 15:24 Drug: SOLU-Medrol (methylPrednisoLONE) 125 mg Route: IVP; Site: right forearm; mb9 16:08 Follow up: Response: No adverse reaction mb9 Medication: 15:00 VIS not applicable for this client. mb9 Outcome: 16:29 Discharge ordered by . tanja 16:39 Discharged to home ambulatory. mb9 16:39 Condition: stable 16:39 Discharge instructions given to patient, Instructed on discharge instructions, follow up and referral plans. Demonstrated understanding of instructions, follow-up care, medications, Prescriptions given X 3. 16:39 Patient left the ED. mb9 Signatures: Dispatcher [employer] EDMS Timo Nava PA PA jmm Moreno, Amanda am2 Alyssa Montesinos RN RN jh5 Jackie Velasquez RN RN mb9
[2022-11-24 18:18] VITALS: TEMP 98.4
[2022-11-24 18:22] VITALS: BP 133/64; O2SAT 96
== END 2022-11-24 16:39 | disposition home or self-care (01) ==
LOC: ER 13:52
DX: J44.1 Chronic obstructive pulmonary disease with (acute) exacerbation (principal); Z20.822 Contact with and (suspected) exposure to COVID-19; E11.9 Type 2 diabetes mellitus without complications
CPT/HCPCS: 85025; 80048; 36415; 83605; 0240U; 71046; J7614; J3475; J2930; 96365; 96375; 99284

== ENCOUNTER 2023-07-26 11:17 | Inpatient (IN) | payer OTHER ==
--- OUTSIDE RECORDS SUMMARY | 2023-07-26 11:23 | XMS REPORT | Continuity of Care Document ---
:1955 Author Organization [facility] t Address [address] [place] [address] Care Team Providers Name Role Phone Mikie PORRAS, Debbie Ceja Primary Care Physician [phone] MIHAELA NAJERA Attending Clinician Unavailable EKATERINA TOVAR Attending Clinician Unavailable LAB90 Attending Clinician Unavailable RAJ DAY Attending Clinician Unavailable MD MATHIEU Attending Clinician Unavailable ABEL GARCÍA Attending Clinician Unavailable DEBBIE DELUNA Attending Clinician Unavailable DRAYL WIGGINS Attending Clinician Unavailable TIO NOWAK Attending Clinician Unavailable Diego PORRAS, Magalie Luevano Attending Clinician [phone] April Roach NP Attending Clinician [phone] CLAUDIA MAI Attending Clinician Unavailable PLABPA Attending Clinician Unavailable TESTING, LJ ORLANDO DOBBINS Attending Clinician Unavailable Anne LEVY, Solange Lee Attending Clinician [phone] Taco PORRAS, Ellie Ramirez Attending Clinician Ruth Berman MA Attending Clinician Unavailable Galina Duncan RN Attending Clinician Unavailable Marjorie PORRAS, Julia Attending Clinician MD MAGALIE BELTRAN Attending Clinician Unavailable JOSH VELAZQUEZ M.D. Attending Clinician Unavailable MARY GRACE MOLINA Attending Clinician Unavailable Sony_A_LIA Attending Clinician Unavailable MAGALIE BELTRAN Admitting Clinician Unavailable MD MAGALIE BELTRAN Admitting Clinician Unavailable CHARLY ARTIS Admitting Clinician Unavailable Jeffrey-Mbayo_A_AH Admitting Clinician Unavailable Payers Payer Name Policy Type Policy Number Effective Date Expiration Date S jonh [employer] TXP 7 [id number] 2022 CLASSIC NO PREMIUM 00:00:00 R2T [employer] OF [place] - [id number] 2019 [place] 00:00:00 (MEDICARE REPLACEMENT/ADVANT AGE - HMO) Problems Condition Condition Condition Status Onset Resolution Last Treating Co mments Source Name Details Category Date Date Treatment Clinician Date Paronychia Paronychia Disease Active K elsey of great of great 8-31 Seybol d toe of toe of 00:00: - left foot left foot 00 Exte rna l Injury of Injury of Disease Active Shaunna sey left great left great 8-31 Se ybold toe toe 00:00: - 00 Externa l 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 00 Externa hyperlipid hyperlipid l emia emia Morbid Morbid Disease Active Alejandra obesity obesity 2-08 Seybold 00:00: - 00 Externa l S/P left S/P left Disease Active 2019-11 Metho di mastectomy mastectomy 2-18 st 00:00: Hospita 00 l Arthralgia Arthralgia Disease Active 2019-11 M ethodi of of 0-29 st multiple multiple 00:00: Hospit a sites sites 00 l Asthma Asthma Disease Active 2019-11 Methodi dependent dependent 0- st on inhaled on inhaled 00:00: [facility] steroids steroids 00 l Chronic Chronic Disease Active 2019-11 Methodi right-side right-side 0-29 st d low back d low back 00:00: Ho spita pain with pain with 00 l right-side right-side d sciatica d sciatica Other Other Disease Active 2019-11 Methodi seasonal seasonal 0-29 st allergic allergic 00:00: Hospit a rhinitis rhinitis 00 l Rheumatoid Rheumatoid Disease Active 2019-11 M ethodi arthritis arthritis 0- st involving involving 00:00: Hosp macy both [...] 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 813 st use use 00:00: Hospita 00 l Abnormal Abnormal Disease Active Metho di mammogram mammogram 805 st of left of left 00:00: Hospita [...] Disease Active Methodi history of history of 4 st colon colon 00:00: Hospita cancer cancer 00 l 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 Added automatic ally from request for surgery [id number] Diabetes Diabetes Disease Active Metho di 1.5, [...] with right-side right-side d sciatica d sciatica No known No known Disease Kelse y active active Seybold problems problems - Externa l Allergies, Adverse Reactions, Alerts This patient has no known allergies or adverse reactions. Family History Family Member Diagnosis Comments Start Date Stop Date Source Cousin Colon cancer [facility] Natural father Heart disease [facility]aternal [facility] [place] Natural mother Heart disease [facility] Paternal grandfather Prostate cancer [facility] Family member [facility] Social History Social Habit Start Date Stop Date Quantity Comments Source Gender [facility] [place] Sexual orientation Method ist Hospital History [facility] Gnosticism Alcohol Std Drinks Hospit al History [facility] Gnosticism Alcohol Binge Hospital Alcohol intake 2023-01-30 2023-01-30 Current Gnosticism 00:00:00 00:00:00 non-drinker of Hospital alcohol (finding) History of Social 2023-01-30 2023-01-[address] function 00:00:00 00:00:00 Hospital Tobacco use and 2023-01-30 2023-01-30 Smokeless Gnosticism exposure 00:00:00 00:00:00 tobacco non-user Hospital History [facility] Food 2023-01-26 2023-01-[address] Worry 00:00:00 00:00:00 Hospital History SDOH Food 2023-01-26 2023-01-[address] Scarcity 00:00:00 00:00:00 Hospital History SDDE 2023-01-26 2023-01-26 2 Gnosticism Transport Med 00:00:00 00:00:00 Hospital History SDDE 2023-01-26 2023-01-26 2 Gnosticism Transport Non-Med 00:00:00 00:00:00 Hospita l History [facility] Social 2023-01-07 2023-01-07 5 [facility]o dist Connections Phone 00:00:00 00:00:00 Hospita l History SDDE Social 2023-01-07 2023-01-07 2 [facility] Get 00:00:00 00:00:00 Hospital Together History [facility] Social 2023-01-07 2023-01-07 1 [facility]ctions Amish 00:00:00 00:00:[facility] 2023-01-07 2 [facility] dist [facility]ctions 00:00:00 00:00:00 Hospital Membership History [facility] 2023-01-07 2023-01-07 1 [facility]o dist [facility]ctions 00:00:00 00:00:00 Hospital Meetings History [facility] 2023-01-07 2023-01-07 8 [facility] Living 00:00:00 00:00:00 Hospit al History [facility] 2020-12-21 2020-12-21 1 Gnosticism Alcohol Frequency 00:00:00 00:00:00 Hospita l Sex [birth year] Gnosticism 00:00:00 00:00:00 Hospital Smoking Status Start Date Stop Date Source Never smoked tobacco Alejandra Seyb old - External Medications Ordered Filled Start Stop Current Ordering Indication Dosage Frequency Signature Comments Components Source Medication Medication Date Date Medication? Clinician (SIG) Name Name Albuterol Yes Alejandra HFA 108 (90 8-31 Seybold Base) 09:48: - MCG/ACT IN 09 Externa AERS l Calcium 600 Yes Alejandra MG oral 8-31 Seybold Tablet 09:48: - 09 Externa l Multiple Yes Take by Alejandra Vitamins-Mi 8-31 mouth Seybold nerals 09:48: - (VITAMIN D3 09 Externa COMPLETE l OR) hydroCHLORO Yes [id number] 12.5mg Take 1 Alejandra thiazide 8-31 capsule Seybold 12.5 MG 00:00: (12.5 mg - oral 00 total) by Externa Capsule mouth l every morning. Amoxicillin Yes [id number] 1{tbl} Take 1 Alejandra -Pot 8-31 tablet by Seybold Clavulanate 00:00: mouth 2 - 875-125 MG 00 times Externa oral Tablet daily. l Mupirocin Yes [id number] Apply 1 Alejandra (BACTROBAN) 8-31 applicatio Se ybold 2 % apply 00:00: n. - externally 00 topically Exte rna Ointment 2 times l daily. OZEMPIC Yes [id number] .5mg Inject 0.5 Alejandra (0.25 or 8-31 3 mg into Seybold 0.5 00:00: the skin - mg/dose) 2 00 once a Externa mg/3 mL SQ week. l Solution Pen-Injecto r Letrozole Yes [id number] 2.5mg Take 1 Alejandra 2.5 MG oral 8-29 tablet Seybol d Tablet 00:00: (2.5 mg - 00 total) by Externa mouth l daily. Albuterol Yes Alejandra HFA 108 (90 8-23 Seybold Base) 10:48: - MCG/ACT IN 31 Externa AERS l Calcium 600 Yes Alejandra MG oral 8-23 Seybold Tablet 10:48: - 31 Externa l Multiple Yes Take by Alejandra Vitamins-Mi 8-23 mouth Seybold nerals 10:48: - (VITAMIN D3 31 Externa COMPLETE l OR) Metformin Yes [id number] TAKE 1 Alejandra HCl 1000 MG 8-04 3 TABLET Seybol d oral Tablet 00:00: (1000 MG - 00 TOTAL) BY Externa MOUTH IN l THE MORNING AND IN THE EVENING WITH MEALS Metformin Yes [id number] TAKE 1 Alejandra HCl 1000 MG 8-04 3 TABLET Seybol d oral Tablet 00:00: (1000 MG - 00 TOTAL) BY Externa MOUTH IN l THE MORNING AND IN THE EVENING WITH MEALS Lancets Yes [id number] USE K elsey (OneTouch 7-24 3 DIRECTED Seybol d Delica Plus 00:00: ONCE A DAY - [id number]) 00 AND Externa does not NEEDED TO l apply Misc MONITOR BLOOD GLUCOSE FOR ICD: E11.9 Lancets Yes [id number] USE K elsey (OneTouch 7-24 3 DIRECTED Seybol d Delica Plus 00:00: ONCE A DAY - [id number]) 00 AND Externa does not NEEDED TO l apply Misc MONITOR BLOOD GLUCOSE FOR ICD: E11.9 OZEMPIC 2022- Yes [id number] .25mg Inject Alejandra (0.25 or 7-18 09-13 3 0.25 mg Seybold 0.5 00:00: 04:59 into the - mg/dose) 2 00 :00 skin once Exte rna mg/3 mL SQ a week l Solution Pen-Injecto r OZEMPIC 3-0 2023- Yes [id number] .25mg Inject Alejandra (0.25 or 18 09-13 3 0.25 mg Seybold 0.5 00:00: 04:59 into the - mg/dose) 2 00 :00 skin once Exte rna mg/3 mL SQ a week l Solution Pen-Injecto r OZEMPIC 2022-0 2023- No [id number] .25mg Inject Alejandra (0.25 or 05-26 08-31 3 0.25 mg Seybold 0.5 00:00: 00:00 into the - mg/dose) 2 00 :00 skin once Exte rna mg/3 mL SQ a week l Solution Pen-Injecto r Tiotropium 3-0 Yes [id number] 1{puff} Inhale 1 Alejandra Forest 7-12 puff into Seybold Monohydrate 00:00: the lungs - (Spiriva 00 daily Externa Respimat) l 2.5 MCG/ACT inhalation Aerosol Solution Fluticasone 2023-0 Yes [id number] 1{puff} Inhale 1 Alejandra -Salmeterol 7-12 puff into Sey bold (AIRDUO 00:00: the lungs - RESPICLICK) 00 2 times Exter na 113-14 daily Use l MCG/ACT with inhalation goodrx AEROSOL coupon POWDER, BREATH ACTIVATED Tiotropium 2023-0 Yes [id number] 1{puff} Inhale 1 Alejandra Forest 7-12 puff into Seybold Monohydrate 00:00: the lungs - (Spiriva 00 daily Externa Respimat) l 2.5 MCG/ACT inhalation Aerosol Solution Fluticasone 2023-0 Yes [id number] 1{puff} Inhale 1 Alejandra -Salmeterol 7-12 puff into Sey bold (AIRDUO 00:00: the lungs - RESPICLICK) 00 2 times Exter na 113-14 daily Use l MCG/ACT with inhalation goodrx AEROSOL coupon POWDER, BREATH ACTIVATED Tiotropium 2023-0 Yes [id number] 1{puff} Inhale 1 Alejandra Forest 7-12 puff into Seybold Monohydrate 00:00: the lungs - (Spiriva 00 daily Externa Respimat) l 2.5 MCG/ACT inhalation Aerosol Solution Fluticasone Yes [id number] 1{puff} Inhale 1 Alejandra -Salmeterol 7-12 puff into Hima mccann (AIRDUO 00:00: the lungs - RESPICLICK) 00 2 times Exter na 113-14 daily Use l MCG/ACT with inhalation goodrx AEROSOL coupon POWDER, BREATH ACTIVATED Albuterol Yes Alejandra HFA 108 (90 7 Seybold Base) 15:45: - MCG/ACT IN 23 Externa AERS l Calcium 600 Yes Alejandra MG oral 7- Seybold Tablet 15:45: - 23 Externa l Multiple Yes Take by Alejandra Vitamins-Mi 7- mouth Seybold nerals 15:45: - (VITAMIN D3 23 Externa COMPLETE l OR) Albuterol Yes Alejandra HFA 108 (90 7 Seybold Base) 15:45: - MCG/ACT IN 23 Externa AERS l Calcium 600 Yes Alejandra MG oral 7- Seybold Tablet 15:45: - 23 Externa l Multiple Yes Take by Alejandra Vitamins-Mi 7-03 mouth Seybold nerals 15:45: - (VITAMIN D3 23 Externa COMPLETE l OR) Amoxicillin Yes [id number] 1{tbl} Take 1 Alejandra -Pot 7-03 tablet by Seybold Clavulanate 00:00: mouth 2 - 875-125 MG 00 times Externa oral Tablet daily l Amoxicillin 0 2022- No [id number] 1{tbl} Take 1 Alejandra -Pot 7-03 07-18 tablet by Seybold Clavulanate 00:00: 00:00 mouth 2 - 875-125 MG 00 :00 times Externa oral Tablet daily l Azithromyci 0 2022- No [id number] Take 2 Alejandra n 250 MG 7- 07-18 tablets by Seyb old oral Tablet 00:00: 00:00 mouth on - 00 :00 day 1 then Externa 1 tablet l by mouth daily for 4 days thereafter . Azithromyci 2022-0 2022- Yes [id number] Take 2 Alejandra n 250 MG 7- 07-09 tablets by Seyb old oral Tablet 00:00: 04:59 mouth on - 00 :00 day 1 then Externa 1 tablet l by mouth daily for 4 days thereafter . Albuterol Yes Alejandra HFA 108 (90 6-22 Seybold Base) 09:34: - MCG/ACT IN 03 Externa AERS l Calcium 600 Yes Alejandra MG oral 6-22 Seybold Tablet 09:34: - 03 Externa l Multiple Yes Take by Alejandra Vitamins-Mi 6-22 mouth Seybold nerals 09:34: - (VITAMIN D3 03 Externa COMPLETE l OR) Lisinopril Yes [id number] 20mg Take 1 K elsey 20 MG oral 6-22 tablet (20 Sey bold Tablet 00:00: mg total) - 00 by mouth Externa daily l Albuterol Yes [id number] 2.5mg Q4H Take 2.5 Alejandra Sulfate (5 6-22 mg by Seybold MG/ML) 0.5% 00:00: nebulizati - inhalation 00 on every 4 Ext tommy Inhalant hours as l Solution needed for wheezing Dapaglifloz Yes [id number] 5mg Take 5 mg Alejandra in 6-22 3 by mouth Seybold Propanediol 00:00: daily - 5 MG oral 00 Externa Tablet l predniSONE Yes [id number] 40mg Take 2 Alejandra (DELTASONE) 6-22 tablets Seybo ld 20 MG oral 00:00: (40 mg - tablet 00 total) by Externa mouth l daily Lisinopril Yes [id number] 20mg Take 1 K elsey 20 MG oral 6-22 tablet (20 Sey bold Tablet 00:00: mg total) - 00 by mouth Externa daily l Albuterol Yes [id number] 2.5mg Q4H Take 2.5 Alejandra Sulfate (5 6-22 mg by Seybold MG/ML) 0.5% 00:00: nebulizati - inhalation 00 on every 4 Ext tommy Inhalant hours as l Solution needed for wheezing Dapaglifloz Yes [id number] 5mg Take 5 mg Alejandra in 6-22 3 by mouth Seybold Propanediol 00:00: daily - 5 MG oral 00 Externa Tablet l predniSONE 3-0 Yes [id number] 40mg Take 2 Alejandra (DELTASONE) 6-22 tablets Seybo ld 20 MG oral 00:00: (40 mg - tablet 00 total) by Externa mouth l daily Lisinopril 2022-0 Yes [id number] 20mg Take 1 K elsey 20 MG oral 6-22 tablet (20 Sey bold Tablet 00:00: mg total) - 00 by mouth Externa daily l Albuterol 2022-0 Yes [id number] 2.5mg Q4H Take 2.5 Alejandra Sulfate (5 6-22 mg by Seybold MG/ML) 0.5% 00:00: nebulizati - inhalation 00 on every 4 Ext tommy Inhalant hours as l Solution needed for wheezing Dapaglifloz 2022-0 Yes [id number] 5mg Take 5 mg Alejandra in 6-22 3 by mouth Seybold Propanediol 00:00: daily - 5 MG oral 00 Externa Tablet l predniSONE 2022-0 Yes [id number] 40mg Take 2 Alejandra (DELTASONE) 6-22 tablets Seybo ld 20 MG oral 00:00: (40 mg - tablet 00 total) by Externa mouth l daily Lisinopril 2022-0 Yes [id number] 20mg Take 1 K elsey 20 MG oral 6-22 tablet (20 Sey bold Tablet 00:00: mg total) - 00 by mouth Externa daily l Albuterol 2022-0 Yes [id number] 2.5mg Q4H Take 2.5 Alejandra Sulfate (5 6-22 mg by Seybold MG/ML) 0.5% 00:00: nebulizati - inhalation 00 on every 4 Ext tommy Inhalant hours as l Solution needed for wheezing Dapaglifloz 2022-0 Yes [id number] 5mg Take 5 mg Alejandra in 6-22 3 by mouth Seybold Propanediol 00:00: daily - 5 MG oral 00 Externa Tablet l Lisinopril 2022-0 Yes [id number] 20mg Take 1 K elsey 20 MG oral 6-22 tablet (20 Sey bold Tablet 00:00: mg total) - 00 by mouth Externa daily l Albuterol Yes [id number] 2.5mg Q4H Take 2.5 Alejandra Sulfate (5 6-22 mg by Seybold MG/ML) 0.5% 00:00: nebulizati - inhalation 00 on every 4 Ext tommy Inhalant hours as l Solution needed for wheezing Dapaglifloz Yes [id number] 5mg Take 5 mg Alejandra in - 3 by mouth Seybold Propanediol 00:00: daily - 5 MG oral 00 Externa Tablet l predniSONE 2022- No [id number] 40mg Take 2 Alejandra (DELTASONE) 04-30 08-23 tablets Seyb old 20 MG oral 00:00: 00:00 (40 mg - tablet 00 :00 total) by Externa mouth l daily OZEMPIC 2022- Yes [id number] .5mg Inject 0.5 Alejandra (0.25 or 6-22 08-18 3 mg into Seybold 0.5 00:00: 04:59 the skin - mg/dose) 2 00 :00 once a Externa mg/3 mL SQ week l Solution Pen-Injecto r OZEMPIC 2022- Yes [id number] .5mg Inject 0.5 Alejandra (0.25 or 6-22 08-18 3 mg into Seybold 0.5 00:00: 04:59 the skin - mg/dose) 2 00 :00 once a Externa mg/3 mL SQ week l Solution Pen-Injecto r OZEMPIC 2022- No [id number] .5mg Inject 0.5 Alejandra (0.25 or 6- 07-18 3 mg into Seybold 0.5 00:00: 00:00 the skin - mg/dose) 2 00 :00 once a Externa mg/3 mL SQ week l Solution Pen-Injecto r OZEMPIC 2022- No [id number] .25mg Inject Alejandra (0.25 or 6- 06-22 3 0.25 mg Seybold 0.5 00:00: 00:00 into the - mg/dose) 2 00 :00 skin once Exte rna mg/3 mL SQ a week l Solution Pen-Injecto r Albuterol Yes Alejandra HFA 108 (90 6-13 Seybold Base) 10:46: - MCG/ACT IN 44 Externa AERS l Calcium 600 0 Yes Alejandra MG oral 6-13 Seybold Tablet 10:46: - 44 Externa l Multiple 0 Yes Take by Alejandra Vitamins-Mi 6-13 mouth Seybold nerals 10:46: - (VITAMIN D3 44 Externa COMPLETE l OR) Letrozole 0 Yes 2.5mg Take 1 Kelse y 2.5 MG oral 6-13 tablet Seybol d Tablet 00:00: (2.5 mg - 00 total) by Externa mouth l daily Letrozole 2022-0 Yes 2.5mg Take 1 Kelse y 2.5 MG oral 6-13 tablet Seybol d Tablet 00:00: (2.5 mg - 00 total) by Externa mouth l daily Letrozole 2022-0 Yes 2.5mg Take 1 Kelse y 2.5 MG oral 6-13 tablet Seybol d Tablet 00:00: (2.5 mg - 00 total) by Externa mouth l daily Letrozole 2022-0 Yes 2.5mg Take 1 Kelse y 2.5 MG oral 6-13 tablet Seybol d Tablet 00:00: (2.5 mg - 00 total) by Externa mouth l daily Letrozole 2022-0 Yes 2.5mg Take 1 Kelse y 2.5 MG oral 6-13 tablet Seybol d Tablet 00:00: (2.5 mg - 00 total) by Externa mouth l daily Lancets 30G 2022-0 Yes [id number] Use as Alejandra does not 6-12 3 directed Seybold apply Misc 00:00: once a day - 00 and as Externa needed to l monitor blood glucose for ICD: E11.9 Lancets 30G 2022-0 Yes [id number] Use as Alejandra does not 6-12 3 directed Seybold apply Misc 00:00: once a day - 00 and as Externa needed to l monitor blood glucose for ICD: E11.9 Lancets 30G 2022-0 Yes [id number] Use as Alejandra does not 6-12 3 directed Seybold apply Misc 00:00: once a day - 00 and as Externa needed to l monitor blood glucose for ICD: E11.9 Lancets 30G 2022-0 Yes [id number] Use as Alejandra does not 6-12 3 directed Seybold apply Misc 00:00: once a day - 00 and as Externa needed to l monitor blood glucose for ICD: E11.9 Blood 2022-0 Yes [id number] Check BS K elsey Glucose 6-02 3 AC/HS and Seybold Monitoring 00:00: PRN - Suppl 00 Externa (Blood l Glucose Monitor System) w/Device does not apply Kit Glucose 2023-0 Yes [id number] 100{eac 100 each Alejandra Blood in 6-02 3 h} by other Seybold vitro Strip 00:00: route - 00 daily Externa Check l blood sugar ACHS and as needed Blood 2022-0 Yes [id number] Check BS K elsey Glucose 6-02 3 AC/HS and Seybold Monitoring 00:00: PRN - Suppl 00 Externa (Blood l Glucose Monitor System) w/Device does not apply Kit Glucose 2023-0 Yes [id number] 100{eac 100 each Alejandra Blood in 6-02 3 h} by other Seybold vitro Strip 00:00: route - 00 daily Externa Check l blood sugar ACHS and as needed Blood 2022-0 Yes [id number] Check BS K elsey Glucose 6-02 3 AC/HS and Seybold Monitoring 00:00: PRN - Suppl 00 Externa (Blood l Glucose Monitor System) w/Device does not apply Kit Glucose 2023-0 Yes [id number] 100{eac 100 each Alejandra Blood in 6-02 3 h} by other Seybold vitro Strip 00:00: route - 00 daily Externa Check l blood sugar ACHS and as needed Blood 2023-0 Yes [id number] Check BS K elsey Glucose 6-02 3 AC/HS and Seybold Monitoring 00:00: PRN - Suppl 00 Externa (Blood l Glucose Monitor System) w/Device does not apply Kit Glucose 2023-0 Yes [id number] 100{eac 100 each Alejandra Blood in 6-02 3 h} by other Seybold vitro Strip 00:00: route - 00 daily Externa Check l blood sugar ACHS and as needed Blood 2023-0 Yes [id number] Check BS K elsey Glucose 6-02 3 AC/HS and Seybold Monitoring 00:00: PRN - Suppl 00 Externa (Blood l Glucose Monitor System) w/Device does not apply Kit Glucose Yes [id number] 100{eac 100 each Alejandra Blood in - 3 h} by other Seybold vitro Strip 00:00: route - 00 daily Externa Check l blood sugar ACHS and as needed Blood 0 Yes [id number] Check BS K elsey Glucose 6-02 3 AC/HS and Seybold Monitoring 00:00: PRN - Suppl 00 Externa (Blood l Glucose Monitor System) w/Device does not apply Kit Glucose Yes [id number] 100{eac 100 each Alejandra Blood in 6-02 3 h} by other Seybold vitro Strip 00:00: route - 00 daily Externa Check l blood sugar ACHS and as needed OZEMPIC 0 2022- No [id number] .25mg Inject Alejandra (0.25 or 04-10- 3 0.25 mg Seybold 0.5 00:00: 04:59 into the - mg/dose) 2 00 :00 skin once Exte rna mg/3 mL SQ a week l Solution Pen-Injecto r Albuterol Yes Alejandra HFA 108 (90 5-25 Seybold Base) 08:55: - MCG/ACT IN 07 Externa AERS l Calcium 600 Yes Alejandra MG oral 5-25 Seybold Tablet 08:55: - 07 Externa l Multiple Yes Take by Alejandra Vitamins-Mi 5-25 mouth Seybold nerals 08:55: - (VITAMIN D3 07 Externa COMPLETE l OR) Metformin Yes [id number] 1000mg Take 1 Alejandra HCl 1000 MG 5-25 3 tablet Seybol d oral Tablet 00:00: (1,000 mg - 00 total) by Externa mouth l daily (with breakfast) Metformin 2022-0 Yes [id number] 1000mg Take 1 Alejandra HCl 1000 MG 5-25 3 tablet Seybol d oral Tablet 00:00: (1,000 mg - 00 total) by Externa mouth l daily (with breakfast) Metformin 2022-0 Yes [id number] 1000mg Take 1 Alejandra HCl 1000 MG 5-25 3 tablet Seybol d oral Tablet 00:00: (1,000 mg - 00 total) by Externa mouth l daily (with breakfast) Metformin 2022-0 Yes [id number] 1000mg Take 1 Alejandra HCl 1000 MG 5-25 3 tablet Seybol d oral Tablet 00:00: (1,000 mg - 00 total) by Externa mouth l daily (with breakfast) Metformin 2022-0 Yes [id number] 1000mg Take 1 Alejandra HCl 1000 MG 5-25 3 tablet Seybol d oral Tablet 00:00: (1,000 mg - 00 total) by Externa mouth l daily (with breakfast) OZEMPIC 2022-0 2022- No [id number] .25mg Inject Alejandra (0.25 or 5-25 07-21 3 0.25 mg Seybold 0.5 00:00: 04:59 into the - mg/dose) 2 00 :00 skin once Exte rna mg/3 mL SQ a week l Solution Pen-Injecto r letrozole Yes [id number] TAKE 1 M ethodi (FEMARA) 5-[address] 2.5 mg 00:00: MOUTH Hospita chemo 00 EVERY DAY l tablet Albuterol 0 Yes Alejandra HFA 108 (90 5-23 Seybold Base) 13:28: - MCG/ACT IN 44 Externa AERS l Calcium 600 Yes Alejandra MG oral 5-23 Seybold Tablet 13:28: - 44 Externa l Multiple Yes Take by Alejandra Vitamins-Mi 5-23 mouth Seybold nerals 13:28: - (VITAMIN D3 44 Externa COMPLETE l OR) Metformin 0 Yes [id number] 1000mg Take 1 Alejandra HCl 1000 MG 5-18 3 tablet Seybol d oral Tablet 00:00: (1,000 mg - 00 total) by Externa mouth in l the morning and 1 tablet (1,000 mg total) in the evening. Take with meals. Metformin 0 2022- No [id number] 1000mg Take 1 Alejandra HCl 1000 MG 5-18 05-25 3 tablet Seybo ld oral Tablet 00:00: 00:00 (1,000 mg - 00 :00 total) by Externa mouth in l the morning and 1 tablet (1,000 mg total) in the evening. Take with meals. Albuterol Yes Alejandra HFA 108 (90 5-05 Seybold Base) 13:46: - MCG/ACT IN 30 Externa AERS l Calcium 600 Yes Alejandra MG oral 5-05 Seybold Tablet 13:46: - 30 Externa l Multiple Yes Take by Alejandra Vitamins-Mi 5-05 mouth Seybold nerals 13:46: - (VITAMIN D3 30 Externa COMPLETE l OR) Montelukast Yes [id number] 10mg Take 1 Alejandra (SINGULAIR) 5-05 tablet (10 Se ybold 10 MG oral 00:00: mg total) - Tablet 00 by mouth Externa tablet nightly l Montelukast Yes [id number] 10mg Take 1 Alejandra (SINGULAIR) 5-05 tablet (10 Se ybold 10 MG oral 00:00: mg total) - Tablet 00 by mouth Externa tablet nightly l Montelukast 2022- No [id number] 10mg Take 1 Alejandra (SINGULAIR) 5-03 16-04 tablet (10 S eybold 10 MG oral 00:00: 04:59 mg total) - Tablet 00 :00 by mouth Externa tablet nightly l Montelukast 2022- No [id number] 10mg Take 1 Alejandra (SINGULAIR) 5-05 08-04 tablet (10 S eybold 10 MG oral 00:00: 04:59 mg total) - Tablet 00 :00 by mouth Externa tablet nightly l Montelukast 0 2022- No [id number] 10mg Take 1 Alejandra (SINGULAIR) 5-05 08-04 tablet (10 S eybold 10 MG oral 00:00: 04:59 mg total) - Tablet 00 :00 by mouth Externa tablet nightly l Montelukast 2022- No [id number] 10mg Take 1 Alejandra (SINGULAIR) 5-05 08-04 tablet (10 S eybold 10 MG oral 00:00: 04:59 mg total) - Tablet 00 :00 by mouth Externa tablet nightly l Montelukast 2022- No [id number] 10mg Take 1 Alejandra (SINGULAIR) 5-05 08-04 tablet (10 S eybold 10 MG oral 00:00: 04:59 mg total) - Tablet 00 :00 by mouth Externa tablet nightly l Montelukast 2022-0 3- No [id number] 10mg Take 1 Alejandra (SINGULAIR) 5-05 08-04 tablet (10 S eybold 10 MG oral 00:00: 04:59 mg total) - Tablet 00 :00 by mouth Externa tablet nightly l Montelukast 2022-0 2022- No [id number] 10mg Take 1 Alejandra (SINGULAIR) 5- 08-04 tablet (10 S eybold 10 MG oral 00:00: 04:59 mg total) - Tablet 00 :00 by mouth Externa tablet nightly l Albuterol 2022-0 Yes Alejandra HFA 108 (90 5-03 Sey[facility]) 12:50: - MCG/ACT IN 39 Externa AERS l Calcium 600 2022-0 Yes Alejandra MG oral 5-03 Seybold Tablet 12:50: - 39 Externa l Multiple 2022-0 Yes Take by Alejandra Vitamins-Mi 5-03 mouth Seybold nerals 12:50: - (VITAMIN D3 39 Externa COMPLETE l OR) Metformin 2022-0 Yes [id number] 500mg Take 1 Alejandra HCl 500 MG 5-03 3 tablet Seybold oral Tablet 00:00: (500 mg - 00 total) by Externa mouth in l the morning and 1 tablet (500 mg total) in the evening. Take with meals. Lisinopril 2022-0 Yes [id number] 40mg Take 1 K elsey 40 MG oral 5-03 tablet (40 Sey bold Tablet 00:00: mg total) - 00 by mouth Externa every l morning Amlodipine 2022-0 Yes [id number] 5mg Take 1 K elsey Besylate 5-03 tablet (5 Seybol d (NORVASC) 5 00:00: mg total) - MG oral 00 by mouth Externa Tablet every l morning Simvastatin 2022-0 Yes [id number] 40mg Take 1 Alejandra 40 MG oral 5-03 3 tablet (40 Sey bold Tablet 00:00: mg total) - 00 by mouth Externa at bedtime l hydroCHLORO 2023-0 Yes [id number] 12.5mg Take 1 Alejandra thiazide 5-03 capsule Seybold 12.5 MG 00:00: (12.5 mg - oral 00 total) by Externa Capsule mouth l every morning Allopurinol 3-0 Yes [id number] 100mg Take 1 Alejandra 100 MG oral 5-03 tablet Seybol d Tablet 00:00: (100 mg - 00 total) by Externa mouth 2 l times daily Metformin 3-0 Yes [id number] 500mg Take 1 Alejandra HCl 500 MG 5-03 3 tablet Seybold oral Tablet 00:00: (500 mg - 00 total) by Externa mouth in l the morning and 1 tablet (500 mg total) in the evening. Take with meals. Lisinopril 3-0 Yes [id number] 40mg Take 1 K elsey 40 MG oral 5-03 tablet (40 Sey bold Tablet 00:00: mg total) - 00 by mouth Externa every l morning Amlodipine 3-0 Yes [id number] 5mg Take 1 K elsey Besylate 5-03 tablet (5 Seybol d (NORVASC) 5 00:00: mg total) - MG oral 00 by mouth Externa Tablet every l morning Simvastatin 3-0 Yes [id number] 40mg Take 1 Alejandra 40 MG oral 5-03 3 tablet (40 Sey bold Tablet 00:00: mg total) - 00 by mouth Externa at bedtime l hydroCHLORO 3-0 Yes [id number] 12.5mg Take 1 Alejandra thiazide 5-03 capsule Seybold 12.5 MG 00:00: (12.5 mg - oral 00 total) by Externa Capsule mouth l every morning Allopurinol 2023-0 Yes [id number] 100mg Take 1 Alejandra 100 MG oral 5-03 tablet Seybol d Tablet 00:00: (100 mg - 00 total) by Externa mouth 2 l times daily Lisinopril 2023-0 Yes [id number] 40mg Take 1 K elsey 40 MG oral 5-03 tablet (40 Sey bold Tablet 00:00: mg total) - 00 by mouth Externa every l morning Amlodipine 2023-0 Yes [id number] 5mg Take 1 K elsey Besylate 5-03 tablet (5 Seybol d (NORVASC) 5 00:00: mg total) - MG oral 00 by mouth Externa Tablet every l morning Simvastatin 2023-0 Yes [id number] 40mg Take 1 Alejandra 40 MG oral 5-03 3 tablet (40 Sey bold Tablet 00:00: mg total) - 00 by mouth Externa at bedtime l hydroCHLORO 2023-0 Yes [id number] 12.5mg Take 1 Alejandra thiazide 5-03 capsule Seybold 12.5 MG 00:00: (12.5 mg - oral 00 total) by Externa Capsule mouth l every morning Allopurinol 2023-0 Yes [id number] 100mg Take 1 Alejandra 100 MG oral 5-03 tablet Seybol d Tablet 00:00: (100 mg - 00 total) by Externa mouth 2 l times daily Lisinopril 2023-0 Yes [id number] 40mg Take 1 K elsey 40 MG oral 5-03 tablet (40 Sey bold Tablet 00:00: mg total) - 00 by mouth Externa every l morning Simvastatin 3-0 Yes [id number] 40mg Take 1 Alejandra 40 MG oral 5-03 3 tablet (40 Sey bold Tablet 00:00: mg total) - 00 by mouth Externa at bedtime l hydroCHLORO 2023-0 Yes [id number] 12.5mg Take 1 Alejandra thiazide 5-03 capsule Seybold 12.5 MG 00:00: (12.5 mg - oral 00 total) by Externa Capsule mouth l every morning Allopurinol 2023-0 Yes [id number] 100mg Take 1 Alejandra 100 MG oral 5-03 tablet Seybol d Tablet 00:00: (100 mg - 00 total) by Externa mouth 2 l times daily Lisinopril 2023-0 Yes [id number] 40mg Take 1 K elsey 40 MG oral 5-03 tablet (40 Sey bold Tablet 00:00: mg total) - 00 by mouth Externa every l morning Simvastatin 2023-0 Yes [id number] 40mg Take 1 Alejandra 40 MG oral 5-03 3 tablet (40 Sey bold Tablet 00:00: mg total) - 00 by mouth Externa at bedtime l hydroCHLORO 2023-0 Yes [id number] 12.5mg Take 1 Alejandra thiazide 5-03 capsule Seybold 12.5 MG 00:00: (12.5 mg - oral 00 total) by Externa Capsule mouth l every morning Allopurinol 2023-0 Yes [id number] 100mg Take 1 Alejandra 100 MG oral 5-03 tablet Seybol d Tablet 00:00: (100 mg - 00 total) by Externa mouth 2 l times daily Simvastatin 3-0 Yes [id number] 40mg Take 1 Alejandra 40 MG oral 5-03 3 tablet (40 Sey bold Tablet 00:00: mg total) - 00 by mouth Externa at bedtime l hydroCHLORO 2023-0 Yes [id number] 12.5mg Take 1 Alejandra thiazide 5-03 capsule Seybold 12.5 MG 00:00: (12.5 mg - oral 00 total) by Externa Capsule mouth l every morning Allopurinol 3-0 Yes [id number] 100mg Take 1 Alejandra 100 MG oral 5-03 tablet Seybol d Tablet 00:00: (100 mg - 00 total) by Externa mouth 2 l times daily Simvastatin 3-0 Yes [id number] 40mg Take 1 Alejandra 40 MG oral 5-03 3 tablet (40 Sey bold Tablet 00:00: mg total) - 00 by mouth Externa at bedtime l hydroCHLORO 2023-0 Yes [id number] 12.5mg Take 1 Alejandra thiazide 5-03 capsule Seybold 12.5 MG 00:00: (12.5 mg - oral 00 total) by Externa Capsule mouth l every morning Allopurinol 2023-0 Yes [id number] 100mg Take 1 Alejandra 100 MG oral 5-03 tablet Seybol d Tablet 00:00: (100 mg - 00 total) by Externa mouth 2 l times daily Simvastatin 2023-0 Yes [id number] 40mg Take 1 Alejandra 40 MG oral 5-03 3 tablet (40 Sey bold Tablet 00:00: mg total) - 00 by mouth Externa at bedtime l hydroCHLORO 2023-0 Yes [id number] 12.5mg Take 1 Alejandra thiazide 5-03 capsule Seybold 12.5 MG 00:00: (12.5 mg - oral 00 total) by Externa Capsule mouth l every morning Allopurinol 2023-0 Yes [id number] 100mg Take 1 Alejandra 100 MG oral 5-03 tablet Seybol d Tablet 00:00: (100 mg - 00 total) by Externa mouth 2 l times daily Simvastatin 2022-0 Yes [id number] 40mg Take 1 Alejandra 40 MG oral 5-03 3 tablet (40 Sey bold Tablet 00:00: mg total) - 00 by mouth Externa at bedtime l hydroCHLORO 2022-0 Yes [id number] 12.5mg Take 1 Alejandra thiazide 5-03 capsule Seybold 12.5 MG 00:00: (12.5 mg - oral 00 total) by Externa Capsule mouth l every morning Allopurinol 2022-0 Yes [id number] 100mg Take 1 Alejandra 100 MG oral 5-03 tablet Seybol d Tablet 00:00: (100 mg - 00 total) by Externa mouth 2 l times daily Simvastatin 2022-0 Yes [id number] 40mg Take 1 Alejandra 40 MG oral 5-03 3 tablet (40 Sey bold Tablet 00:00: mg total) - 00 by mouth Externa at bedtime l Allopurinol 2022-0 Yes [id number] 100mg Take 1 Alejandra 100 MG oral 5-03 tablet Seybol d Tablet 00:00: (100 mg - 00 total) by Externa mouth 2 l times daily hydroCHLORO 2022-0 2022- No [id number] 12.5mg Take 1 Alejandra thiazide 5-03 08-31 capsule Seybold 12.5 MG 00:00: 00:00 (12.5 mg - oral 00 :00 total) by Externa Capsule mouth l every morning Lisinopril 2022-0 2022- No [id number] 40mg Take 1 Alejandra 40 MG oral 5-03 06-22 tablet (40 Se ybold Tablet 00:00: 00:00 mg total) - 00 :00 by mouth Externa every l morning Amlodipine 2022-0 2022- No [id number] 5mg Take 1 Alejandra Besylate 5-03 05-25 tablet (5 Seybo ld (NORVASC) 5 00:00: 00:00 mg total) - MG oral 00 :00 by mouth Externa Tablet every l morning predniSONE 2022-0 2022- No [id number] 40mg Take 2 Alejandra (DELTASONE) 4-03 06-22 tablets Seyb old 20 MG oral 00:00: 00:00 (40 mg - tablet 00 :00 total) by Externa mouth l daily for 5 days predniSONE 2022-0 2023- No [id number] 40mg Take 2 Alejandra (DELTASONE) 4-03 04-09 tablets Seyb old 20 MG oral 00:00: 04:59 (40 mg - tablet 00 :00 total) by Externa mouth l daily for 5 days letrozole 2023-0 Yes [id number] TAKE 1 M ethodi (FEMARA) 3-[address] 2.5 mg 00:00: [facility]OUTH [facility] chemo 00 EVERY DAY l tablet letrozole 2023-0 2022- No [id number] TAKE 1 [facility] (FEMARA) 3-28 05-[address] 2.5 mg 00:00: 00:00 MOUTH [facility]osp[facility] chemo 00 :00 EVERY DAY l tablet acetaminoph 2023-0 Yes 650mg Q.5D Take 1 Met hodi en ER 3-[address] (TYLENOL) 14:37: (650 mg Hospi ta 650 MG 8 hr 39 total) by l tablet mouth 2 (two) times a day. ipratropium 2023-0 Yes 3mL Q.25D Take 3 mL [facility] -albuteroL 3-[address] (DUO-NEB) 14:37: nebulizati Ho spita 0.5-2.5 39 on 4 l mg/3 mL (four) nebulizer times a day. simvastatin 2023-0 Yes 40mg QD Take 1 Meth jason (ZOCOR) 40 3-24 tablet (40 st MG tablet 14:37: mg total) Hos jake 39 by mouth l nightly. CALCIUM 2023-0 Yes Take by [facility] ORAL 3-[address] 14:37: Hospita 39 l cholecalcif 2023-0 Yes Take by Met hodi desmond, 3-[address] vitamin D3, 14:37: Hospit a (VITAMIN D3 39 l ORAL) acetaminoph 2023-0 Yes 650mg Q.5D Take 1 Met hodi en ER 3-[address] (TYLENOL) 14:37: (650 mg Hospi ta 650 MG 8 hr 39 total) by l tablet mouth 2 (two) times a day. ipratropium 2023-0 Yes 3mL Q.25D Take 3 mL [facility] -albuteroL 3-[address] (DUO-NEB) 14:37: nebulizati Ho spita 0.5-2.5 39 on 4 l mg/3 mL (four) nebulizer times a day. simvastatin Yes 40mg QD Take 1 Meth jason (ZOCOR) 40 3-24 tablet (40 st MG tablet 14:37: mg total) Hos jake 39 by mouth l nightly. CALCIUM Yes Take by [facility] ORAL 3-[address] 14:37: Hospita 39 l cholecalcif Yes Take by hodi desmond, 3-[address] vitamin D3, 14:37: Hospit a (VITAMIN D3 39 l ORAL) Calcium 600 Yes Alejandra MG oral 3-23 Seybold Tablet 15:46: - 07 Externa l Multiple Yes Take by Alejandra Vitamins-Mi 3-23 mouth Seybold nerals 15:46: - (VITAMIN D3 07 Externa COMPLETE l OR) Albuterol Yes Alejandra HFA 108 (90 3-23 Sey[facility] Base) 15:46: - MCG/ACT IN 07 Externa AERS l Calcium 600 Yes Alejandra MG oral 3-23 Seybold Tablet 15:46: - 07 Externa l Multiple Yes Take by Alejandra Vitamins-Mi 3-23 mouth Seybold nerals 15:46: - (VITAMIN D3 07 Externa COMPLETE l OR) Albuterol Yes Alejandra HFA 108 (90 3-23 Seybold [facility]) 15:46: - MCG/ACT IN 07 Externa AERS l letrozole 2022- No [id number] TAKE 1 [facility] (FEMARA) 01-[address] 2.5 mg 00:00: 00:00 MOUTH [facility]osp[facility] chemo 00 :00 EVERY DAY l tablet letrozole 2022- No [id number] TAKE 1 [facility] (FEMARA) -02-[address] 2.5 mg 00:00: 00:00 MOUTH [facility]ospita chemo 00 :00 EVERY DAY l tablet Fluticasone 0 2022- No Shaunnase y Propionate 2- 02- Seybold HFA 44 13:30: 00:00 - MCG/ACT 40 :00 Externa inhalation l Aerosol Albuterol Yes Alejandra HFA 108 (90 2-27 Seybold Base) 13:11: - MCG/ACT IN 20 Externa AERS l Albuterol-I Yes 3mL Inhale 3 Ke lsey pratropium 2-27 mL into Seybol d 0.5-2.5 (3) 13:11: the lungs - MG/3ML 20 4 times Externa inhalation daily l Solution Calcium 600 Yes Alejandra MG oral 2-27 Seybold Tablet 13:11: - 20 Externa l Multiple Yes Take by Alejandra Vitamins-Mi 2-27 mouth Seybold nerals 13:11: - (VITAMIN D3 20 Externa COMPLETE l OR) Trelegy Yes QD Inhale [facility] Ellipta 2-[address] 200-62.5-25 00:00: daily. [facility]osp [facility] mcg blister 00 l with device Trelegy 0 Yes QD Inhale [facility] Ellipta 2-[address] 200-62.5-25 00:00: daily. [facility]osp macy mcg blister 00 l with device Fluticasone 0 Yes 1{puff} Inhale 1 Alejandra -Umeclidin- 2-27 puff into Sey bold Vilant 00:00: the lungs - (Trelegy 00 daily Externa Ellipta) l 200-62.5-25 MCG/ACT inhalation AEROSOL POWDER, BREATH ACTIVATED Fluticasone Yes 1{puff} Inhale 1 Alejandra -Umeclidin- 2-27 puff into Sey bold Vilant 00:00: the lungs - (Trelegy 00 daily Externa Ellipta) l 200-62.5-25 MCG/ACT inhalation AEROSOL POWDER, BREATH ACTIVATED Fluticasone 0 Yes 1{puff} Inhale 1 Alejandra -Umeclidin- 2-27 puff into Sey bold Vilant 00:00: the lungs - (Trelegy 00 daily Externa Ellipta) l 200-62.5-25 MCG/ACT inhalation AEROSOL POWDER, BREATH ACTIVATED predniSONE 2022- No [id number] 40mg Take 2 Alejandra (DELTASONE) 2-27 06-22 tablets Seyb old 20 MG oral 00:00: 00:00 (40 mg - tablet 00 :00 total) by Externa mouth l daily for 5 days Fluticasone 2023-0 2023- No 1{puff} Inhale 1 Alejandra -Umeclidin- 2-27 05-29 puff into [facility] Vilant 00:00: 04:59 the lungs - (Trelegy 00 :00 daily Externa Ellipta) l 200-62.5-25 MCG/ACT inhalation AEROSOL POWDER, BREATH ACTIVATED Fluticasone 2023-0 2023- No 1{puff} Inhale 1 Alejandra -Umeclidin- 2-27 05-29 puff into Se ybold Vilant 00:00: 04:59 the lungs - (Trelegy 00 :00 daily Externa Ellipta) l 200-62.5-25 MCG/ACT inhalation AEROSOL POWDER, BREATH ACTIVATED Fluticasone 2023-0 2023- No 1{puff} Inhale 1 Alejandra -Umeclidin- 2-27 05-29 puff into [facility] Vilant 00:00: 04:59 the lungs - (Trelegy 00 :00 daily Externa Ellipta) l 200-62.5-25 MCG/ACT inhalation AEROSOL POWDER, BREATH ACTIVATED Fluticasone 2023-0 2023- No 1{puff} Inhale 1 Alejandra -Umeclidin- 2-27 05-29 puff into [facility] Vilant 00:00: 04:59 the lungs - (Trelegy 00 :00 daily Externa Ellipta) l 200-62.5-25 MCG/ACT inhalation AEROSOL POWDER, BREATH ACTIVATED Fluticasone 2023-0 2023- No 1{puff} Inhale 1 Alejandra -Umeclidin- 2-27 05-29 puff into Se old Vilant 00:00: 04:59 the lungs - (Trelegy 00 :00 daily Externa Ellipta) l 200-62.5-25 MCG/ACT inhalation AEROSOL POWDER, BREATH ACTIVATED Fluticasone 2023-0 2023- No 1{puff} Inhale 1 Alejandra -Umeclidin- 2-27 05-29 puff into Se ybold Vilant 00:00: 04:59 the lungs - (Trelegy 00 :00 daily Externa Ellipta) l 200-62.5-25 MCG/ACT inhalation AEROSOL POWDER, BREATH ACTIVATED Fluticasone 2022-0 2022- No 1{puff} Inhale 1 Alejandra -Umeclidin- 01-05 puff into Se ybold Vilant 00:00: 04:59 the lungs - (Trelegy 00 :00 daily Externa Ellipta) l 200-62.5-25 MCG/ACT inhalation AEROSOL POWDER, BREATH ACTIVATED predniSONE 2022-0 2022- No [id number] 40mg Take 2 Alejandra (DELTASONE) 01-05-05 tablets Seyb old 20 MG oral 00:00: 05:59 (40 mg - tablet 00 :00 total) by Externa mouth l daily for 5 days Fluticasone 2022-0 2022- No [id number] 1{puff} Inhale 1 Alejandra -Umeclidin- 01-05 puff into Se ybold Vilant 00:00: 00:00 the lungs - (Trelegy 00 :00 daily Externa Ellipta) l 100-62.5-25 MCG/ACT inhalation AEROSOL POWDER, BREATH ACTIVATED letrozole 0 2022- No [id number] TAKE 1 [facility] (FEMARA) 12-[address] 2.5 mg 00:00: 00:00 MOUTH [facility]ospita chemo 00 :00 EVERY DAY l tablet letrozole 2022-0 2022- No [id number] TAKE 1 [facility] (FEMARA) 12-16- TABLET BY st 2.5 mg 00:00: 00:00 MOUTH [facility]ospita chemo 00 :00 EVERY DAY l tablet Loratadine 0 2022- No 10mg Take 10 mg Alejandra 10 MG oral 12-11-02 by mouth Seyb old Capsule 14:45: 00:00 daily - 39 :00 Externa l Amoxicillin 2022-0 Yes [id number] 1{tbl} Take 1 Alejandra -Pot 2-02 tablet by Seybold Clavulanate 00:00: mouth 2 - 875-125 MG 00 times Externa oral Tablet daily l Guaifenesin 2022-0 Yes [id number] 1200mg Take 2 Alejandra (Mucinex) 2-02 tablets Seybold 600 MG oral 00:00: (1,200 mg - Tablet 12 00 total) by Exter na Hour mouth 2 l Sustained times Release daily Benzonatate Yes [id number] 100mg Q.[id number] Take 1 Alejandra (Tessalon 2-02 [id number] capsule S kaylibold Barrera) 100 00:00: 3D (100 mg - MG oral 00 total) by Externa Capsule mouth 3 l times daily as needed for cough Benzonatate Yes [id number] 100mg Q.[id number] Take 1 Alejandra (Tessalon 2- [id number] capsule S eybold Barrera) 100 00:00: 3D (100 mg - MG oral 00 total) by Externa Capsule mouth 3 l times daily as needed for cough Amoxicillin 2022- No [id number] 1{tbl} Take 1 Alejandra -Pot 12-11 tablet by Seybold Clavulanate 00:00: 00:00 mouth 2 - 875-125 MG 00 :00 times Externa oral Tablet daily l Guaifenesin 2022- No [id number] 1200mg Take 2 Alejandra (Mucinex) 12-11 tablets Seybol d 600 MG oral 00:00: 00:00 (1,200 mg - Tablet 12 00 :00 total) by Exter na Hour mouth 2 l Sustained times Release daily PAXLOVID 2022- No [id number] Take one Alejandra RENAL (20) 12-11 150 mg Seybol d (150/100) 00:00: 05:59 nirmatrelv - Therapy 00 :00 ir (pink) Externa Pack tablets l with one 100 mg ritonavir (white) tablet by mouth two times daily for 5 days Albuterol Yes Alejandra HFA 108 (90 1-18 Seybold Base) 10:20: - MCG/ACT IN 37 Externa AERS l Albuterol-I Yes 3mL Inhale 3 Ke lsey pratropium 1-18 mL into Seybol d 0.5-2.5 (3) 10:20: the lungs - MG/3ML 37 4 times Externa inhalation daily l Solution Calcium 600 Yes Alejnadra MG oral 1-18 Seybold Tablet 10:20: - 37 Externa l Multiple Yes Take by Alejandra Vitamins-Mi 1-18 mouth Seybold nerals 10:20: - (VITAMIN D3 37 Externa COMPLETE l OR) Fluticasone Yes Alejandra Propionate 1-18 Seybold HFA 44 10:20: - MCG/ACT 37 Externa inhalation l Aerosol Loratadine Yes 10mg Take 10 mg K elsey 10 MG oral 1-18 by mouth Seybo ld Capsule 10:20: daily - 37 Externa l Albuterol Yes Alejandra HFA 108 (90 1-18 Seybold Base) 10:20: - MCG/ACT IN 37 Externa AERS l Albuterol-I Yes 3mL Inhale 3 Ke lsey pratropium 1-18 mL into Seybol d 0.5-2.5 (3) 10:20: the lungs - MG/3ML 37 4 times Externa inhalation daily l Solution Calcium 600 Yes Alejandra MG oral 1-18 Seybold Tablet 10:20: - 37 Externa l Multiple Yes Take by Alejandra Vitamins-Mi 1-18 mouth Seybold nerals 10:20: - (VITAMIN D3 37 Externa COMPLETE l OR) Fluticasone Yes Alejandra Propionate 1-18 Seybold HFA 44 10:20: - MCG/ACT 37 Externa inhalation l Aerosol Allopurinol Yes [id number] 100mg Take 1 Alejandra 100 MG oral 1-18 tablet Seybol d Tablet 00:00: (100 mg - 00 total) by Externa mouth 2 l times daily Allopurinol 0 Yes [id number] 100mg Take 1 Alejandra 100 MG oral 1-18 tablet Seybol d Tablet 00:00: (100 mg - 00 total) by Externa mouth 2 l times daily Allopurinol 0 Yes [id number] 100mg Take 1 Alejandra 100 MG oral 1-18 tablet Seybol d Tablet 00:00: (100 mg - 00 total) by Externa mouth 2 l times daily Allopurinol 0 Yes [id number] 100mg Take 1 Alejandra 100 MG oral 1-18 tablet Seybol d Tablet 00:00: (100 mg - 00 total) by Externa mouth 2 l times daily Allopurinol 2023-0 Yes [id number] 100mg Take 1 Alejandra 100 MG oral 1-18 tablet Seybol d Tablet 00:00: (100 mg - 00 total) by Externa mouth 2 l times daily Allopurinol 0 3- No [id number] 100mg Take 1 Alejandra 100 MG oral 1-18 05-03 tablet Seybo ld Tablet 00:00: 00:00 (100 mg - 00 :00 total) by Externa mouth 2 l times daily letrozole 2022-0 Yes [id number] TAKE 1 M ethodi (FEMARA) 1-[address] 2.5 mg 00:00: MOUTH Hospita chemo 00 EVERY DAY l tablet Letrozole 2022-0 Yes 1{tbl} Take 1 Zenobia ey 2.5 MG oral 1-13 tablet by Sey bold Tablet 00:00: mouth - 00 daily Externa l Letrozole 2022-0 Yes 1{tbl} Take 1 Zenobia ey 2.5 MG oral 1-13 tablet by Sey bold Tablet 00:00: mouth - 00 daily Externa l Letrozole 2022-0 Yes 2.5mg Take 1 Kelse y 2.5 MG oral 1-13 tablet Seybol d Tablet 00:00: (2.5 mg - 00 total) by Externa mouth l daily Letrozole 2022-0 Yes 1{tbl} Take 1 Zenobia ey 2.5 MG oral 1-13 tablet by Sey bold Tablet 00:00: mouth - 00 daily Externa l Letrozole 2022-0 Yes 2.5mg Take 1 Kelse y 2.5 MG oral 1-13 tablet Seybol d Tablet 00:00: (2.5 mg - 00 total) by Externa mouth l daily Letrozole 2022-0 Yes 2.5mg Take 1 Kelse y 2.5 MG oral 1-13 tablet Seybol d Tablet 00:00: (2.5 mg - 00 total) by Externa mouth l daily Letrozole 3-0 Yes 2.5mg Take 1 Kelse y 2.5 MG oral 1-13 tablet Seybol d Tablet 00:00: (2.5 mg - 00 total) by Externa mouth l daily Letrozole 2022-0 Yes 2.5mg Take 1 Kelse y 2.5 MG oral 1-13 tablet Seybol d Tablet 00:00: (2.5 mg - 00 total) by Externa mouth l daily Letrozole 3-0 Yes 2.5mg Take 1 Kelse y 2.5 MG oral 1-13 tablet Seybol d Tablet 00:00: (2.5 mg - 00 total) by Externa mouth l daily Letrozole 3-0 Yes 2.5mg Take 1 Kelse y 2.5 MG oral 1-13 tablet Seybol d Tablet 00:00: (2.5 mg - 00 total) by Externa mouth l daily Letrozole 2022-0 Yes 2.5mg Take 1 Kelse y 2.5 MG oral 1-13 tablet Seybol d Tablet 00:00: (2.5 mg - 00 total) by Externa mouth l daily Letrozole 2022-0 Yes 2.5mg Take 1 Kelse y 2.5 MG oral 1-13 tablet Seybol d Tablet 00:00: (2.5 mg - 00 total) by Externa mouth l daily. Letrozole 2022-0 Yes 1{tbl} Take 1 Zenobia ey 2.5 MG oral 1-13 tablet by Sey bold Tablet 00:00: mouth - 00 daily Externa l Letrozole 2022-0 Yes 2.5mg Take 1 Kelse y 2.5 MG oral 1-13 tablet Seybol d Tablet 00:00: (2.5 mg - 00 total) by Externa mouth l daily. Letrozole 2022-0 Yes 1{tbl} Take 1 Zenobia ey 2.5 MG oral 1-13 tablet by Sey bold Tablet 00:00: mouth - 00 daily Externa l letrozole 2022-0 2022- No [id number] TAKE 1 [facility] (FEMARA) 11-[address] 2.5 mg 00:00: 00:00 MOUTH [facility]ospita chemo 00 :00 EVERY DAY l tablet letrozole 2022-0 2022- No [id number] TAKE 1 [facility] (FEMARA) 11-[address] 2.5 mg 00:00: 00:00 MOUTH [facility]ospita chemo 00 :00 EVERY DAY l tablet hydroCHLORO 2021-11 Yes 1{capsu Take 1 K elsey thiazide 2-29 le} capsule by Seybo ld 12.5 MG 00:00: mouth - oral 00 every Externa Capsule morning l hydroCHLORO 2021-11 Yes 1{capsu Take 1 K elsey thiazide 2-29 le} capsule by Seybo ld 12.5 MG 00:00: mouth - oral 00 every Externa Capsule morning l hydroCHLORO 2021-11 Yes 1{capsu Take 1 K elsey thiazide 2-29 le} capsule by Seybo ld 12.5 MG 00:00: mouth - oral 00 every Externa Capsule morning l hydroCHLORO 2021-11 Yes 1{capsu Take 1 K elsey thiazide 2-29 le} capsule by Seybo ld 12.5 MG 00:00: mouth - oral 00 every Externa Capsule morning l hydroCHLORO 2021-11 Yes 1{capsu Take 1 K elsey thiazide 2-29 le} capsule by Seybo ld 12.5 MG 00:00: mouth - oral 00 every Externa Capsule morning l hydroCHLORO 2021-11- No 12.5mg Take 1 K elsey thiazide 2-29 05-03 capsule Seybold 12.5 MG 00:00: 00:00 (12.5 mg - oral 00 :00 total) by Externa Capsule mouth l every morning letrozole 2021-11- No [id number] TAKE 1 [facility] (FEMARA) 12-[address] 2.5 mg 00:00: 00:00 MOUTH [facility]ospita chemo 00 :00 EVERY DAY l tablet letrozole 2021-11- No [id number] TAKE 1 [facility] (FEMARA) 12-[address] 2.5 mg 00:00: 00:00 MOUTH [facility]ospita chemo 00 :00 EVERY DAY l tablet letrozole 2021-11- No [id number] TAKE 1 [facility] (FEMARA) 12-[address] 2.5 mg 00:00: 00:00 MOUTH [facility]ospita chemo 00 :00 EVERY DAY l tablet Lisinopril 2021-11 Yes 40mg Take 40 mg K elsey 40 MG oral 2-02 by mouth Seybo ld Tablet 00:00: every - 00 morning Externa l Simvastatin 2021-11 Yes 40mg Take 40 mg Alejandra 40 MG oral 2-02 by mouth Seybo ld Tablet 00:00: at bedtime - 00 Externa l Lisinopril 2022-1 Yes 40mg Take 40 mg K elsey 40 MG oral 2-02 by mouth Seybo ld Tablet 00:00: every - 00 morning Externa l Simvastatin 2021-11 Yes 40mg Take 40 mg Alejandra 40 MG oral 2-02 by mouth Seybo ld Tablet 00:00: at bedtime Externa l Lisinopril 2021-11 Yes 40mg Take 40 mg K elsey 40 MG oral 2-02 by mouth Sey[facility] ld Tablet 00:00: every - 00 morning Externa l Simvastatin 2021-11 Yes 40mg Take 40 mg Aljeandra 40 MG oral 2-02 by mouth [facility] ld Tablet 00:00: at bedtime Externa l Lisinopril 2021-11 Yes 40mg Take 40 mg K elsey 40 MG oral 2-02 by mouth Sey[facility] ld Tablet 00:00: every - 00 morning Externa l Simvastatin 2021-11 Yes 40mg Take 40 mg Alejandra 40 MG oral 2-02 by mouth [facility] ld Tablet 00:00: at bedtime Externa l Lisinopril 2021-11 Yes 40mg Take 40 mg K elsey 40 MG oral 2-02 by mouth Sey[facility] ld Tablet 00:00: every - 00 morning Externa l Simvastatin 2021-11 Yes 40mg Take 40 mg Alejandra 40 MG oral 2-02 by mouth [facility] ld Tablet 00:00: at bedtime Externa l Lisinopril 2021-11- No 40mg Take 1 Zenobia ey 40 MG oral 2-02 05-03 tablet (40 Se ybold Tablet 00:00: 00:00 mg total) - 00 :00 by mouth Externa every l morning Simvastatin 2021-11- No 40mg Take 1 Shaunna sey 40 MG oral 2-02 05-03 tablet (40 Se ybold Tablet 00:00: 00:00 mg total) - 00 :00 by mouth Externa at bedtime l letrozole 2021-11- No [id number] TAKE 1 [facility] ([facility] - 12-[address] 2.5 mg 00:00: 00[facility] EVERY DAY l tablet letrozole 2021-11- No [id number] TAKE 1 [facility] ([facility]) 12-06-[address] 2.5 mg 00:00: 00:00 [facility] 00 :00 EVERY DAY l tablet letrozole 2021-11- No [id number] TAKE 1 [facility] ([facility]) 12-06- TABLET BY st 2.5 mg 00:00: 00:00 [facility]OUTH [facility] 00 :00 EVERY DAY l tablet Amlodipine 2021-11 Yes 5mg Take 5 mg Ke lsey Besylate 5 1-10 by mouth [facility] ld MG oral 00:00: every - Tablet 00 morning Externa l Amlodipine 2021-11 Yes 5mg Take 5 mg Ke lsey Besylate 5 1-10 by mouth [facility] MG oral 00:00: every - Tablet 00 morning Externa l Amlodipine 2021-11 Yes 5mg Take 5 mg Ke lsey Besylate 5 1-10 by mouth Seybo ld MG oral 00:00: every - Tablet 00 morning Externa l Amlodipine 2021-11 Yes 5mg Take 5 mg Ke lsey Besylate 5 1-10 by mouth Seybo ld MG oral 00:00: every - Tablet 00 morning Externa l Amlodipine 2021-11 Yes 5mg Take 5 mg Ke lsey Besylate 5 1-10 by mouth Seybo ld MG oral 00:00: every - Tablet 00 morning Externa l Amlodipine 2021-11- No 5mg Take 1 Zenobia ey Besylate 5 1-10 05-03 tablet (5 Sey bold MG oral 00:00: 00:00 mg total) - Tablet 00 :00 by mouth Externa every l morning letrozole 2021-11- No [id number] TAKE 1 [facility] (FEMARA) 11-[address] 2.5 mg 00:00: 00:00 MOUTH [facility] chemo 00 :00 EVERY DAY l tablet letrozole 2021-11- No [id number] TAKE 1 [facility] (FEMARA) 11-[address] 2.5 mg 00:00: 00:00 MOUTH [facility] chemo 00 :00 EVERY DAY l tablet letrozole 2021-11- No [id number] TAKE 1 [facility] (FEMARA) 11-[address] 2.5 mg 00:00: 00:00 MOUTH [facility] chemo 00 :00 EVERY DAY l tablet letrozole 2021-11- No [id number] TAKE 1 [facility] (FEMARA) 009-[address] 2.5 mg 00:00: 00:00 MOUTH [facility] chemo 00 :00 DAILY FOR l tablet 30 DAYS. letrozole 2021-11- No [id number] TAKE 1 [facility] (FEMARA) 009-[address] 2.5 mg 00:00: 00:00 MOUTH [facility] chemo 00 :00 DAILY FOR l tablet 30 DAYS. letrozole 2021-11- No [id number] TAKE 1 [facility] (FEMARA) 09-[address] 2.5 mg 00:00: 00:00 MOUTH [facility]osp[facility] chemo 00 :00 DAILY FOR l tablet 30 DAYS. acetaminoph Yes 650mg Q.5D Take 650 M [facility] en ER 9-[address] (TYLENOL) 14:35: mouth in [facility]osp [facility] 650 MG 8 hr 58 the l tablet morning and 650 mg before bedtime. ipratropium 0 Yes 3mL Q.25D Take 3 mL [facility] -albuteroL 07-[address] (DUO-NEB) 14:35: nebulizati [facility] 0.5-2.5 58 on 4 l mg/3 mL (four) nebulizer times a day. simvastatin Yes 40mg QD Take 40 mg [facility] (ZOCOR) 40 07-[address] MG tablet 14:35: nightly. [facility]osp macy 58 l CALCIUM 0 Yes Take by [facility] ORAL 07-[address] 14:35: Hospita 58 l cholecalcif Yes Take by [facility] desmond, -[address] vitamin D3, 14:35: Hospit a (VITAMIN D3 58 l ORAL) letrozole 2021- No [id number] 2.5mg QD Take 1 [facility] (FEMARA) 07-[address] 2.5 mg 00:00: 00:00 (2.5 mg Hospita chemo 00 :00 total) by l tablet mouth daily for 30 days. letrozole 2021- No [id number] 2.5mg QD Take 1 [facility] (FEMARA) 07-[address] 2.5 mg 00:00: 00:00 (2.5 mg [facility]ospita chemo 00 :00 total) by l tablet mouth daily for 30 days. letrozole 2022-0 2022- No [id number] 2.5mg QD Take 1 [facility] (FEMARA) 913 10-[address] 2.5 mg 00:00: 00:00 (2.5 mg Hospita chemo 00 :00 total) by l tablet mouth daily for 30 days. allopurinoL 2022-0 Yes 100mg Q.5D Take 1 [facility] (ZYLOPRIM) 8-[address] 100 MG 00:00: (100 mg Hospita tablet 00 total) by l mouth 2 (two) times a day. allopurinoL 2022-0 Yes 100mg Q.5D Take 1 [facility] (ZYLOPRIM) 8-[address] 100 MG 00:00: (100 mg Hospita tablet 00 total) by l mouth 2 (two) times a day. allopurinoL 2-0 Yes 100mg Q.5D Take 1 [facility] (ZYLOPRIM) 8-[address] 100 MG 00:00: (100 mg Hospita tablet 00 total) by l mouth 2 (two) times a day. Allopurinol 2021-0 3- No 100mg Take 100 Alejandra 100 MG oral 8 01-18 mg by Seybol d Tablet 00:00: 00:00 mouth 2 - 00 :00 times Externa daily l hydroCHLORO 2-0 2021- No 12.5mg QD Take 1 M ethodi thiazide 6-17 -[address] (HYDRODIURI 00:00: 00:00 (12.5 mg H ospita L) 12.5 MG 00 :00 total) by l tablet mouth every morning. hydroCHLORO 2-0 2021- No 12.5mg QD Take 1 M [...] a (VITAMIN D3 56 l ORAL) acetaminoph 2-0 Yes 650mg Q.5D Take 650 M ethodi [...] a (VITAMIN D3 56 l ORAL) fluticasone 2022-0 Yes SPRAY 2 [facility] propionate 2-[address] (FLONASE) 00:00: EACH [facility]ospita 50 00 NOSTRIL l mcg/actuati TWICE A on nasal DAY spray fluticasone 2021-0 Yes SPRAY 2 [facility] propionate 2-[address] (FLONASE) 00:00: EACH [facility]ospita 50 00 NOSTRIL l mcg/actuati TWICE A on nasal DAY spray fluticasone 2022-0 Yes SPRAY 2 [facility] propionate 2-[address] (FLONASE) 00:00: EACH Hospita 50 00 NOSTRIL l mcg/actuati TWICE A on nasal DAY spray fluticasone 2-0 Yes SPRAY 2 [facility] propionate 2-[address] (FLONASE) 00:00: EACH Hospita 50 00 NOSTRIL l mcg/actuati TWICE A on nasal DAY spray fluticasone 2-0 Yes SPRAY 2 [facility] propionate 2-[address] (FLONASE) 00:00: EACH Hospita 50 00 NOSTRIL l mcg/actuati TWICE A on nasal DAY spray FLUTICASONE 2021-0 Yes SPRAY 2 Shaunna sey PROPIONATE, 2-22 PUFFS IN Seyb old NASAL, 50 00:00: EACH - MCG/ACT 00 NOSTRIL Externa nasal TWICE A l Suspension DAY FLUTICASONE 2021-0 Yes SPRAY 2 Shaunna sey PROPIONATE, 2-22 PUFFS IN Seyb old NASAL, 50 00:00: EACH - MCG/ACT 00 NOSTRIL Externa nasal TWICE A l Suspension DAY FLUTICASONE 2021-0 Yes SPRAY 2 Shaunna sey PROPIONATE, 2-22 PUFFS IN Seyb old NASAL, 50 00:00: EACH - MCG/ACT 00 NOSTRIL Externa nasal TWICE A l Suspension DAY FLUTICASONE 2021-0 Yes SPRAY 2 Shaunna sey PROPIONATE, 2-22 PUFFS IN Seyb old NASAL, 50 00:00: EACH - MCG/ACT 00 NOSTRIL Externa nasal TWICE A l Suspension DAY FLUTICASONE 2-0 Yes SPRAY 2 Shaunna sey PROPIONATE, 2-22 PUFFS IN Seyb old NASAL, 50 00:00: EACH - MCG/ACT 00 NOSTRIL Externa nasal TWICE A l Suspension DAY FLUTICASONE 2021-0 Yes SPRAY 2 Shaunna sey PROPIONATE, 2-22 PUFFS IN Seyb old NASAL, 50 00:00: EACH - MCG/ACT 00 NOSTRIL Externa nasal TWICE A l Suspension DAY FLUTICASONE 2-0 Yes SPRAY 2 Shaunna sey PROPIONATE, 2-22 PUFFS IN Seyb old NASAL, 50 00:00: EACH - MCG/ACT 00 NOSTRIL Externa nasal TWICE A l Suspension DAY FLUTICASONE 2022-0 Yes SPRAY 2 Shaunna sey PROPIONATE, 2-22 PUFFS IN Seyb old NASAL, 50 00:00: EACH - MCG/ACT 00 NOSTRIL Externa nasal TWICE A l Suspension DAY FLUTICASONE 2021-0 Yes SPRAY 2 Shaunna sey PROPIONATE, 2-22 PUFFS IN Seyb old NASAL, 50 00:00: EACH - MCG/ACT 00 NOSTRIL Externa nasal TWICE A l Suspension DAY FLUTICASONE 2021-0 Yes SPRAY 2 Shaunna sey PROPIONATE, 2-22 PUFFS IN Seyb old NASAL, 50 00:00: EACH - MCG/ACT 00 NOSTRIL Externa nasal TWICE A l Suspension DAY FLUTICASONE 2021-0 Yes SPRAY 2 Shaunna sey PROPIONATE, 2-22 PUFFS IN Seyb old NASAL, 50 00:00: EACH - MCG/ACT 00 NOSTRIL Externa nasal TWICE A l Suspension DAY FLUTICASONE 2021-0 Yes SPRAY 2 Shaunna sey PROPIONATE, 2-22 PUFFS IN Seyb old NASAL, 50 00:00: EACH - MCG/ACT 00 NOSTRIL Externa nasal TWICE A l Suspension DAY FLUTICASONE 2021-0 Yes SPRAY 2 Shaunna sey PROPIONATE, 2-22 PUFFS IN Seyb old NASAL, 50 00:00: EACH - MCG/ACT 00 NOSTRIL Externa nasal TWICE A l Suspension DAY FLUTICASONE 2021-0 Yes SPRAY 2 Shaunna sey PROPIONATE, 2-22 PUFFS IN Seyb old NASAL, 50 00:00: EACH - MCG/ACT 00 NOSTRIL Externa nasal TWICE A l Suspension DAY FLUTICASONE 2021-0 Yes SPRAY 2 Shaunna sey PROPIONATE, 2-22 PUFFS IN Seyb old NASAL, 50 00:00: EACH - MCG/ACT 00 NOSTRIL Externa nasal TWICE A l Suspension DAY loratadine 2021- No 10mg QD Take 10 mg [facility] (CLARITIN) 11-[address] 10 mg 11:51: 00:00 daily. [facility]ospita tablet 47 :00 l loratadine 2021- No 10mg QD Take 10 mg [facility] (CLARITIN) 11-[address] 10 mg 11:51: 00:00 daily. [facility]ospita tablet 47 :00 l letrozole 2021- No [id number] Take one [facility] (FEMARA) 8 08-[address] 2.5 mg 00:00: 04:59 daily [facility]osp[facility] chemo 00 :00 l tablet letrozole 2021-0 2022- No [id number] Take one [facility] (FEMARA) 8 08-[address] 2.5 mg 00:00: 04:59 daily [facility]osp[facility] chemo 00 :00 l tablet letrozole 2021-0 2- No [id number] Take one [facility] (FEMARA) 8 08-[address] 2.5 mg 00:00: 04:59 daily [facility] chemo 00 :00 l tablet letrozole 2021-0 2- No [id number] Take one [facility] (FEMARA) 8 08-[address] 2.5 mg 00:00: 04:59 daily [facility]osp[facility] chemo 00 :00 l tablet folic acid 2021-0 Yes [facility] (FOLVITE) 1 5-10 st MG tablet 00:00: Hospita 00 l folic acid 2021-0 Yes [facility] (FOLVITE) 1 5-10 st MG tablet 00:00: Hospita 00 l folic acid 2021-0 Yes [facility] (FOLVITE) 1 5-10 st MG tablet 00:00: Hospita 00 l folic acid 2021-0 2023- No [facility] (FOLVITE) 1 5-10 03-24 st MG tablet 00:00: 00:00 Hospita 00 :00 l folic acid 2021-0 2023- No [facility] (FOLVITE) 1 5-10 03-24 st MG tablet 00:00: 00:00 Hospita 00 :00 l hydroCHLORO 2021-0 Yes [facility] thiazide 3-17 st (MICROZIDE) 00:00: Hospit a 12.5 mg 00 l capsule hydroCHLORO 2021-0 Yes [facility] thiazide 3-17 st (MICROZIDE) 00:00: Hospit a 12.5 mg 00 l capsule hydroCHLORO 2021-0 Yes [facility] thiazide 3-17 st (MICROZIDE) 00:00: Hospit a 12.5 mg 00 l capsule hydroCHLORO 2021-0 Yes [facility] thiazide 3-17 st (MICROZIDE) 00:00: Hospit a 12.5 mg 00 l capsule hydroCHLORO 2021-0 Yes [facility] thiazide 3-17 st (MICROZIDE) 00:00: Hospit a 12.5 mg 00 l capsule Methotrexat Methotrexat Yes JOSH 6 TAKE 6 UT e 2.5 MG e 2.5 MG 3-03 VELAZQUEZ TABLET Phy sici Oral Tablet Oral Tablet 00:00: M.D. WEEKLY ans 00 Folic Acid Folic Acid 2019-0 Yes JOSH 1 QD TAKE 1 UT 1 MG Oral 1 MG Oral 3-03 VELAZQUEZ TABLET P hysici Tablet Tablet 00:00: M.D. DAILY. ans Fluticasone Fluticasone 0 Yes JOSH QD USE 1 UT Propionate Propionate 3-03 VELAZQUEZ SPRAY IN Physici 50 MCG/ACT 50 MCG/ACT 00:00: M.D. EACH a ns Nasal Nasal 00 NOSTRIL Suspension Suspension ONCE DAILY. predniSONE predniSONE Yes JOSH 1 QD TAKE 1 UT 5 MG Oral 5 MG Oral 1-24 VELAZQUEZ TABLET P [facility]ysici Tablet Tablet 00:00: M.D. DAILY ans 00 lisinopril 2017-11 Yes 40mg QD Take 1 [facility] (PRINIVIL,Z 2-18 tablet (40 st ESTRIL) 40 00:00: mg total) [facility] mg tablet 00 by mouth l every morning. lisinopril 2017-11 Yes 40mg QD Take 40 [...] l lisinopril 2017-11 Yes 40mg QD Take 1 [facility] (PRINIVIL,Z 2-18 tablet (40 st ESTRIL) 40 00:00: mg total) [facility] mg tablet 00 by mouth l every morning. FLOVENT HFA 2017-11 Yes 1{puff} Q.5D Take [...] (two) l times a day. FLOVENT HFA 2017-11- No 1{puff} Q.5D Take 1 [facility] 44 1-24 03-[address] mcg/actuati 00:00: 00:00 mouth 2 Ho spita on inhaler 00 :00 (two) l times a day. FLOVENT HFA 2017-11- No 1{puff} Q.5D Take 1 [facility] 44 1-24 03-[address] mcg/actuati 00:00: 00:00 mouth 2 Ho spita on inhaler 00 :00 (two) l times a day. amLODIPine 2017-11 Yes 5mg QD Take 1 [facility] (NORVASC) 5 0-27 tablet (5 st mg tablet 00:00: mg total) Hos jake 00 by mouth l every morning. amLODIPine 2017-11 Yes 1{tbl} QD Take [...] 1 [facility] (NORVASC) 5 0-27 tablet (5 st mg tablet 00:00: mg total) Hos jake 00 by mouth l every morning. VENTOLIN 2017-11 Yes 2{puff} Q.5D Take 2 Meth jason HFA 90 0-[address] mcg/actuati 00:00: mouth 2 Hos jake on inhaler 00 (two) l times a day. MONAUCH 2017-11 Yes CHECK [facility] ULTRA BLUE 0-[address] TEST STRIP 00:00: MORNING [facility]osp [facility] strip test 00 l strips VENTOLIN 2017-11 Yes 2{puff} Q.5D Take 2 Meth jason HFA 90 0-[address] mcg/actuati 00:00: mouth 2 Hos jake on inhaler 00 (two) l times a day. MONA2017-11 Yes CHECK [facility] ULTRA BLUE 0-[address] TEST STRIP 00:00: MORNING [facility]osp [facility] strip test 00 l strips VENTOLIN 2017-11 Yes 2{puff} Q.5D Take 2 Meth jason HFA 90 0-[address] mcg/actuati 00:00: mouth 2 Hos jake on inhaler 00 (two) l times a day. ADOELA 2017-11 Yes CHECK [facility] ULTRA BLUE 0-[address] TEST STRIP 00:00: MORNING [facility]osp [facility]acy strip test 00 l strips VENTOLIN 2017-11 Yes 2{puff} Q.5D Take 2 Meth jason HFA 90 0-[address] mcg/actuati 00:00: mouth 2 Hos jake on inhaler 00 (two) l times a day. MONA2017-11 Yes CHECK [facility] ULTRA BLUE 0-[address] TEST STRIP 00:00: MORNING [facility]osp [facility]acy strip test 00 l strips VENTOLIN 2017-11 Yes 2{puff} Q.5D Take 2 Meth jason HFA 90 0-[address] mcg/actuati 00:00: mouth 2 Hos jake on inhaler 00 (two) l times a day. MONAUCH 2017-11 Yes CHECK [facility] ULTRA BLUE 0-[address] TEST STRIP 00:00: MORNING [facility]osp [facility] strip test 00 l strips ONEUCH 2017-11 Yes CHECK [facility] DELICA 0-[address] LANCETS 33 00:00: MORNING [facility]osp [facility] gauge misc 00 l UCH 2017-11 Yes CHECK [facility] DELICA 0-[address] LANCETS 33 00:00: MORNING [facility]osp [facility] gauge misc 00 l TOUCH 2017-11 Yes CHECK [facility] DELICA 0-[address] LANCETS 33 00:00: MORNING [facility]osp [facility]acy gauge misc 00 l SHRUTHIUCH 2017-11 Yes CHECK [facility] DELICA 0-[address] LANCETS 33 00:00: MORNING [facility] gauge misc 00 [facility]11 Yes CHECK [facility] DELICA 0-[address] LANCETS 33 00:00: MORNING [facility]osp [facility] gauge misc 00 l Vital Signs Vital Name Observation Time Observation Value Comments Source Systolic blood 2023-07-09 120 mm[Hg] Alejandra Seybol d - pressure 14:45:00 External Diastolic blood 2023-07-09 70 mm[Hg] Alejandra Seybo ld - pressure 14:45:00 External Heart rate 2023-07-09 90 /min Alejandra Seybold - 14:45:00 External Body temperature 2023-07-09 36.94 Celeste Alejandra Seyb old - 14:45:00 External Respiratory rate 2023-07-09 20 /min Alejandra Seyb old - 14:45:00 External Body height 2023-07-09 165.1 cm Alejandra Seybold - 14:45:00 External Body weight 2023-07-09 102.967 kg Alejandra Seybold - 14:45:00 External BMI 2023-07-09 37.77 kg/m2 Alejandra Seybold - 14:45:00 External Systolic blood 2023-07-01 124 mm[Hg] Alejandra Seybol d - pressure 15:45:00 External Diastolic blood 2023-07-01 73 mm[Hg] Alejandra Seybo ld - pressure 15:45:00 External Heart rate 2023-07-01 76 /min Alejandra Seybold - 15:45:00 External Body height 2023-07-01 165.1 cm Alejandra Seybold - 15:45:00 External Body weight 2023-07-01 103.329 kg Alejandra Seybold - 15:45:00 External BMI 2023-07-01 37.91 kg/m2 Alejandra Seybold - 15:45:00 External Systolic blood 2023-05-26 120 mm[Hg] Alejandra Seybol d - pressure 15:14:00 External Diastolic blood 2023-05-26 72 mm[Hg] Alejandra Seybo ld - pressure 15:14:00 External Heart rate 2023-05-26 81 /min Alejandra Seybold - 15:14:00 External Body temperature 2023-05-26 36.11 Celeste Alejandra Vincentyb old - 15:14:00 External Respiratory rate 2023-05-26 14 /min Alejandra Vincentyb old - 15:14:00 External Body height 2023-05-26 165.1 cm Alejandra Vincentybold - 15:14:00 External Body weight 2023-05-26 106.595 kg Alejandra Vincentybold - 15:14:00 External BMI 2023-05-26 39.11 kg/m2 Alejandra Vincentybold - 15:14:00 External Oxygen saturation 2023-05-26 99 /min Alejandra Rabago bold - in Arterial blood 15:14:00 External by Pulse oximetry Systolic blood 2023-05-11 128 mm[Hg] Alejandra Seybol d - pressure 20:42:00 External Diastolic blood 2023-05-11 62 mm[Hg] Alejandra Seybo ld - pressure 20:42:00 External Heart rate 2023-05-11 100 /min Alejandra Vincentybold - 20:42:00 External Body temperature 2023-05-11 37.28 Celeste Alejandra Vincentyb old - 20:42:00 External Respiratory rate 2023-05-11 15 /min Alejandra Vnicentyb old - 20:42:00 External Body height 2023-05-11 165.1 cm Alejandra Wan - 20:42:00 External Body weight 2023-05-11 105.688 kg Alejandra Vincentybold - 20:42:00 External BMI 2023-05-11 38.77 kg/m2 Alejandra Vincentybold - 20:42:00 External Systolic blood 2023-04-30 138 mm[Hg] Alejandra Seybol d - pressure 14:31:00 External Diastolic blood 2023-04-30 74 mm[Hg] Alejandra Seybo ld - pressure 14:31:00 External Heart rate 2023-04-30 93 /min Alejandra Vincentybold - 14:31:00 External Body temperature 2023-04-30 35.67 Celeste Alejandra Vincentyb old - 14:31:00 External Respiratory rate 2023-04-30 14 /min Alejandra Vincentyb old - 14:31:00 External Body height 2023-04-30 165.1 cm Alejandra Vincentybold - 14:31:00 External Body weight 2023-04-30 109.77 kg Alejandra Seybold - 14:31:00 External BMI 2023-04-30 40.27 kg/m2 Alejandra Seybold - 14:31:00 External Systolic blood 2023-04-21 118 mm[Hg] Alejandra Seybol d - pressure 15:47:00 External Diastolic blood 2023-04-21 76 mm[Hg] Alejandra Seybo ld - pressure 15:47:00 External Heart rate 2023-04-21 77 /min Alejandra Seybold - 15:47:00 External Body temperature 2023-04-21 36.5 Celeste Alejandra Vincentyb old - 15:47:00 External Respiratory rate 2023-04-21 18 /min Alejandra Seyb old - :47:00 External Body height 2023-04-21 165.1 cm Alejandra Vincentybold - :47:00 External Body weight 2023-04-21 105.325 kg Alejandra Vincentybold - :47:00 External BMI 2023-04-21 38.64 kg/m2 Alejandra Seybold - :47:00 External Oxygen saturation 2023-04-21 100 /min Alejandra y bold - in Arterial blood 15:47:00 External by Pulse oximetry Systolic blood 2023-04-02 128 mm[Hg] Alejandra Seybol d - pressure 13:49:00 External Diastolic blood 2023-04-02 77 mm[Hg] Alejandra Vincentybo ld - pressure 13:49:00 External Heart rate 2023-04-02 83 /min Alejandra Seybold - :49:00 External Body temperature 2023-04-02 35.56 Celeste Alejandra Vincentyb old - 13:49:00 External Respiratory rate 2023-04-02 18 /min Alejandra Seyb old - :49:00 External Body height 2023-04-02 165.1 cm Alejandra Vincentybold - :49:00 External Body weight 2023-04-02 111.948 kg Alejandra Vincentybold - 13:49:00 External BMI 2023-04-02 41.07 kg/m2 Alejandra Seybold - :49:00 External Oxygen saturation 2023-04-02 98 /min Alejandra Sey bold - in Arterial blood 13:49:00 External by Pulse oximetry Systolic blood 2023-03-31 142 mm[Hg] Alejandra Seybol d - pressure 18:25:00 External Diastolic blood 2023-03-31 82 mm[Hg] Alejandra Seybo ld - pressure 18:25:00 External Heart rate 2023-03-31 80 /min Alejandra Seybold - 18:25:00 External Respiratory rate 2023-03-31 16 /min Alejandra Seyb old - 18:25:00 External Body height 2023-03-31 165.1 cm Alejandra Seybold - 18:25:00 External Body weight 2023-03-31 110.224 kg Alejandra Seybold - 18:25:00 External BMI 2023-03-31 40.44 kg/m2 Alejandra Seybold - 18:25:00 External Systolic blood 2023-03-13 131 mm[Hg] Alejandra Seybol d - pressure 18:42:00 External Diastolic blood 2023-03-13 75 mm[Hg] Alejandra Seybo ld - pressure 18:42:00 External Heart rate 2023-03-13 70 /min Alejandra Seybold - 18:42:00 External Body temperature 2023-03-13 36.72 Celeste Alejandra Seyb old - 18:42:00 External Respiratory rate 2023-03-13 16 /min Alejandra Seyb old - 18:42:00 External Body height 2023-03-13 165.1 cm Alejandra Seybold - 18:42:00 External Body weight 2023-03-13 111.585 kg Alejandra Seybold - 18:42:00 External BMI 2023-03-13 40.94 kg/m2 Alejandra Seybold - 18:42:00 External Systolic blood 2023-03-11 110 mm[Hg] Alejandra Seybol d - pressure 17:49:00 External Diastolic blood 2023-03-11 69 mm[Hg] Alejandra Seybo ld - pressure 17:49:00 External Heart rate 2023-03-11 74 /min Alejandra Seybold - 17:49:00 External Body temperature 2023-03-11 36.28 Celeste Alejandra Seyb old - 17:49:00 External Respiratory rate 2023-03-11 14 /min Alejandra Seyb old - 17:49:00 External Body height 2023-03-11 165.1 cm Alejandra Vincentybold - 17:49:00 External Body weight 2023-03-11 109.77 kg Alejandra Vincentybold - 17:49:00 External BMI 2023-03-11 40.27 kg/m2 Alejandra Vincentybold - 17:49:00 External Oxygen saturation 2023-03-11 99 /min Alejandra Rabago bold - in Arterial blood 17:49:00 External by Pulse oximetry Systolic blood 2023-01-29 150 mm[Hg] Alejandra Seybol d - pressure 20:45:00 External Diastolic blood 2023-01-29 97 mm[Hg] Alejandra Seybo ld - pressure 20:45:00 External Heart rate 2023-01-29 101 /min Alejandra Vincentybold - :45:00 External Body temperature 2023-01-29 37 Celeste Alejandra Vincentyb old - 20:45:00 External Respiratory rate 2023-01-29 19 /min Alejandra Vincentyb old - 20:45:00 External Body height 2023-01-29 165.1 cm Alejandra Vincentybold - :45:00 External Body weight 2023-01-29 117.028 kg Alejandra Vincentybold - :45:00 External BMI 2023-01-29 42.93 kg/m2 Alejandra Vincentybold - :45:00 External Oxygen saturation 2023-01-29 97 /min Alejandra Rabago bold - in Arterial blood 20:45:00 External by Pulse oximetry Systolic blood 2023-01-05 131 mm[Hg] Alejandra Seybol d - pressure 19:16:00 External Diastolic blood 2023-01-05 81 mm[Hg] Alejandra Seybo ld - pressure 19:16:00 External Heart rate 2023-01-05 78 /min Alejandra Seybold - :16:00 External Body temperature 2023-01-05 36.44 Celeste Alejandra Vincentyb old - 19:16:00 External Respiratory rate 2023-01-05 18 /min Alejandra Vincentyb old - 19:16:00 External Body height 2023-01-05 165.1 cm Alejandra Seybold - 19:16:00 External Body weight 2023-01-05 116.574 kg Alejandra Vincentybold - 19:16:00 External BMI 2023-01-05 42.77 kg/m2 Alejandra Vincentybold - 19:16:00 External Oxygen saturation 2023-01-05 97 /min Alejandra Rabago bold - in Arterial blood 19:16:00 External by Pulse oximetry Systolic blood 2022-11-26 130 mm[Hg] Alejandra Eastonol d - pressure 16:11:00 External Diastolic blood 2022-11-26 62 mm[Hg] Alejandra Eastono ld - pressure 16:11:00 External Heart rate 2022-11-26 113 /min Alejandra Vincentybold - 16:11:00 External Body temperature 2022-11-26 36.17 Celeste Alejandra Easton old - 16:11:00 External Respiratory rate 2022-11-26 15 /min Alejandra Easton old - 16:11:00 External Body height 2022-11-26 165.1 cm Alejandra Wan - 16:11:00 External Body weight 2022-11-26 114.76 kg Alejandra Eastonold - 16:11:00 External BMI 2022-11-26 42.10 kg/m2 Alejadnra Eastonold - 16:11:00 External BMI 2023-01-30 42.60 kg/m2 [facility] 19:39:00 [facility] Systolic blood 2023-01-30 122 mm[Hg] [facility] pressure 19:39:00 Hospital Diastolic blood 2023-01-30 87 mm[Hg] [facility] pressure 19:39:00 Hospital Heart rate 2023-01-30 89 /min [facility] 19:39:00 Hospital Body height 2023-01-30 165.1 cm [facility] 19:39:00 Hospital Body weight 2023-01-30 116.121 kg [facility] 19:39:00 Hospital Systolic blood 2022-07-22 96 mm[Hg] [facility] pressure 19:33:00 Hospital Diastolic blood 2022-07-22 54 mm[Hg] [facility] pressure 19:33:00 Hospital Heart rate 2022-07-22 89 /min [facility] 19:33:00 Hospital Body height 2022-07-22 165.1 cm [facility] 19:33:00 Hospital Body weight 2022-07-22 116.393 kg [facility] 19:33:00 Hospital BMI 2022-07-22 42.70 kg/m2 [facility] 19:33:00 Hospital Systolic blood 2022-01-13 120 mm[Hg] [facility] pressure 20:36:00 Hospital Diastolic blood 2022-01-13 66 mm[Hg] [facility] pressure 20:36:00 Hospital Heart rate 2022-01-13 79 /min [facility] 20:36:00 Hospital Body height 2022-01-13 165.1 cm [facility] 20:36:00 Hospital Body weight 2022-01-13 117.935 kg [facility] 20:36:00 Hospital BMI 2022-01-13 43.27 kg/m2 [facility] 20:36:00 Hospital Body temperature 2021-11-20 36.39 Celeste [facility] 18:55:00 Hospital Respiratory rate 2021-11-20 99 /min [facility] 18:55:00 Hospital Systolic blood 2020-04-24 154 mm[Hg] [...] Systolic blood 2020-01-10 128 mm[Hg] [facility] pressure 10:58:00 Position: Sitting Diastolic [...] BP Systolic 2019-11-29 155 mm[Hg] Location: [facility]; [facility] 08:18:00 Position: Sitting BP Diastolic 2019-11-29 84 mm[Hg] Location: [facility]; [facility] 08:18:00 Position: Sitting Height 2019-11-29 65 [in_us] [facility] 08:18:00 Weight 2019-11-29 257 [lb_av] [facility] 08:18:00 Body Mass Index 2019-11-29 42.77 kg/m2 [facility] Calculated 08:18:00 Temperature 2019-11-29 97.8 [degF] Method: Oral [facility] 08:18:00 Heart Rate 2019-11-29 76 /min Location: L [facility] 08:18:00 Brachial Artery; Quality: Normal Procedures Procedure Date / Time Performing Clinician Source Performed [facility] 2023-03-11 19:06:18 Ekaterina Tovar ld - External MAMMO BREAST SCREEN 2023-01-14 17:24:26 [facility] TOMOSYNTHESIS RIGHT [facility] BONE DENSITY 2022-08-01 16:33:05 [facility] XR CHEST 2 VW 2022-07-22 16:45:19 [facility] MAMMO BREAST SCREEN 2022-01-13 20:05:00 [facility]ABOLIC 2021-08-01 17:10:00 Julia Andrade [facility] PANEL VITAMIN D 25 HYDROXY 2021-08-01 17:10[facility] 2021-08-01 17:10:00 [facility] BONE DENSITY 2021-08-01 16:40:00 [facility]rade [facility] [QL] CBC (INCLUDES 2020-04-24 00:00:00 [facility] DIFF/PLT) [QL] CMP W/EGFR 2020-04-24 00:00:00 [facility] [QL] C-REACTIVE PROTEIN 2020-04-24 00:00:00 [facility] [QL] SED RATE BY 2020-04-24 00:00:00 [facility] [U] XRAY SPINE 2020-04-24 00:00:00 [facility] LUMBOSACRAL 2 OR 3 VWS [id number] Complete PFTs w/DLCO and 2020-01-10 00:00:00 [facility] Lung Volumes [QLH] CBC (INCLUDES 2020-01-10 00:00:00 [facility] DIFF/PLT) [QLH] CMP W/EGFR 2020-01-10 00:00:00 [facility] [QLH] C-REACTIVE PROTEIN 2020-01-10 00:00:00 [facility] [QLH] SED RATE BY 2020-01-10 00:00:00 [facility] [QLH] SJOGRENS 2019-11-29 00:00:00 [facility] ANTIBODIES (SS-A,SS-B) [QL] VAMSHI SCREEN IFA 2019-11-29 00:00:00 [facility] W/REFL TITER IFA XRAY Hip bilateral w 2019-11-29 00:00:00 [facility] pelvis and both lat hips [address] Plan of Care Planned Activity Planned Date Details Comments Source Future Scheduled 2023-07-26 Screening for [facility] Test 08:22:02 malignant neoplasm of colon (procedure) [code = 750680671] Future Scheduled 2023-07-26 Screening for [facility] Test 08:22:02 malignant neoplasm of colon (procedure) [code = 510505385] Future Scheduled 2023-07-26 Screening for [facility] Test 08:22:02 malignant neoplasm of colon (procedure) [code = 166303265] Future Scheduled 2023-07-26 65+ PNEUMOCOCCAL [facility] Test 08:22:02 VACCINE (1 - PCV) [code = 65+ PNEUMOCOCCAL VACCINE (1 - PCV)] Future Scheduled 2023-07-26 DIABETES: RETINAL EYE [facility] Test 08:22:02 EXAM [code = DIABETES: RETINAL EYE EXAM] Future Scheduled 2023-07-26 DIABETIC FOOT EXAM [facility] Test 08:22:02 [code = DIABETIC FOOT EXAM] Future Scheduled 2023-07-26 Hepatitis C screening [facility] Test 08:22:02 (procedure) [code = 346771259] Future Scheduled 2023-07-26 Screening for [facility] Test 08:22:02 malignant neoplasm of colon (procedure) [code = 627169230] Future Scheduled 2023-07-26 Screening for [facility] Test 08:22:02 malignant neoplasm of colon (procedure) [code = 216750434] Future Scheduled 2023-07-26 SHINGLES VACCINES (1 [facility] Test 08:22:02 of 2) [code = SHINGLES VACCINES (1 of 2)] Future Scheduled 2023-07-26 COVID-19 VACCINE (6 - [facility] Test 08:22:02 Pfizer series) [code = COVID-19 VACCINE (6 - Pfizer series)] Future Scheduled 2023-07-26 INFLUENZA VACCINE [facility] Test 08:22:02 (#1) [code = INFLUENZA VACCINE (#1)] Future Scheduled 2023-07-26 BREAST CANCER [facility] Test 08:22:02 SCREENING [code = BREAST CANCER SCREENING] Future Scheduled 2023-02-16 65+ PNEUMOCOCCAL [facility] Test 17:17:39 VACCINE (1 - PCV) [code = 65+ PNEUMOCOCCAL VACCINE (1 - PCV)] Future Scheduled 2023-02-16 DIABETES: RETINAL EYE [facility] Test 17:17:39 EXAM [code = DIABETES: RETINAL EYE EXAM] Future Scheduled 2023-02-16 DIABETIC FOOT EXAM [facility] Test 17:17:39 [code = DIABETIC FOOT EXAM] Future Scheduled 2023-02-16 Hepatitis C screening [facility] Test 17:17:39 (procedure) [code = 167225486] Future Scheduled 2023-02-16 COLONOSCOPY SCREENING [facility] Test 17:17:39 [code = COLONOSCOPY SCREENING] Future Scheduled 2023-02-16 SHINGLES VACCINES (1 [facility] Test 17:17:39 of 2) [code = SHINGLES VACCINES (1 of 2)] Future Scheduled 2023-02-16 INFLUENZA VACCINE [facility] Test 17:17:39 [code = INFLUENZA VACCINE] Future Scheduled 2023-02-16 BREAST CANCER [facility] Test 17:17:39 SCREENING [code = BREAST CANCER SCREENING] Future Scheduled 2022-11-21 65+ PNEUMOCOCCAL [facility] Test 08:51:20 VACCINE (1 - PCV) [code = 65+ PNEUMOCOCCAL VACCINE (1 - PCV)] Future Scheduled 2022-11-21 DIABETES: RETINAL EYE [facility] Test 08:51:20 EXAM [code = DIABETES: RETINAL EYE EXAM] Future Scheduled 2022-11-21 DIABETIC FOOT [facility]AM [facility] Test 08:51:20 [code = DIABETIC FOOT EXAM] Future Scheduled 2022-11-21 Hepatitis C screening [facility] Test 08:51:20 (procedure) [code = 372136497] Future Scheduled 2022-11-21 COLONOSCOPY SCREENING [facility] Test 08:51:20 [code = COLONOSCOPY SCREENING] Future Scheduled 2022-11-21 SHINGLES VACCINES (1 [facility] Test 08:51:20 of 2) [code = SHINGLES VACCINES (1 of 2)] Future Scheduled 2022-11-21 COVID-19 VACCINE (5 - [facility] Test 08:51:20 Booster for Pfizer series) [code = COVID-19 VACCINE (5 - Booster for Pfizer series)] Future Scheduled 2022-11-21 [facility]ACCINE [facility] 08:51:20 [code = INFLUENZA VACCINE] Future Scheduled 2022-11-21 BREAST CANCER [facility] Test 08:51:20 SCREENING [code = BREAST CANCER SCREENING] Future Scheduled 2022-07-05 HEPATITIS B VACCINES [facility] Test 04:28:50 (1 of 3 - 3-dose series) [code = HEPATITIS B VACCINES (1 of 3 - 3-dose series)] Future Scheduled 2022-07-05 65+ [facility]AL [facility] Test 04:28:50 VACCINE (1 - PCV) [code = 65+ PNEUMOCOCCAL VACCINE (1 - PCV)] Future Scheduled 2022-07-05 DIABETES: RETINAL EYE [facility] Test 04:28:50 EXAM [code = DIABETES: RETINAL EYE EXAM] Future Scheduled 2022-07-05 DIABETIC FOOT [facility]AM [facility] Test 04:28:50 [code = DIABETIC FOOT EXAM] Future Scheduled 2022-07-05 Hepatitis C screening [facility] Test 04:28:50 (procedure) [code = 856912168] Future Scheduled 2022-07-05 COLONOSCOPY SCREENING [facility] Test 04:28:50 [code = COLONOSCOPY SCREENING] Future Scheduled 2022-07-05 SHINGLES VACCINES (1 [facility] Test 04:28:50 of 2) [code = SHINGLES VACCINES (1 of 2)] Future Scheduled 2022-07-05 COVID-19 VACCINE (4 - [facility] Test 04:28:50 Booster for Pfizer series) [code = COVID-19 VACCINE (4 - Booster for Pfizer series)] Future Scheduled 2022-07-05 INFLUENZA VACCINE [facility] Test 04:28:50 [code = INFLUENZA VACCINE] Future Scheduled 2022-07-05 BREAST CANCER [facility] Test 04:28:50 SCREENING [code = BREAST CANCER SCREENING] Future Scheduled 2022-07-05 HEPATITIS B VACCINES [facility] Test 04:28:50 (1 of 3 - 3-dose series) [code = HEPATITIS B VACCINES (1 of 3 - 3-dose series)] Future Scheduled 2022-07-05 65+ [facility] Test 04:28:50 VACCINE (1 - PCV) [code = 65+ PNEUMOCOCCAL VACCINE (1 - PCV)] Future Scheduled 2022-07-05 DIABETES: RETINAL EYE [facility] Test 04:28:50 EXAM [code = DIABETES: RETINAL EYE EXAM] Future Scheduled 2022-07-05 DIABETIC FOOT EXAM [facility] Test 04:28:50 [code = DIABETIC FOOT EXAM] Future Scheduled 2022-07-05 Hepatitis C screening [facility] Test 04:28:50 (procedure) [code = 611499358] Future Scheduled 2022-07-05 COLONOSCOPY SCREENING [facility] Test 04:28:50 [code = COLONOSCOPY SCREENING] Future Scheduled 2022-07-05 SHINGLES VACCINES (1 [facility] Test 04:28:50 of 2) [code = SHINGLES VACCINES (1 of 2)] Future Scheduled 2022-07-05 COVID-19 VACCINE (4 - [facility] Test 04:28:50 Booster for Pfizer series) [code = COVID-19 VACCINE (4 - Booster for Pfizer series)] Future Scheduled 2022-07-05 INFLUENZA VACCINE [facility] Test 04:28:50 [code = INFLUENZA VACCINE] Future Scheduled 2022-07-05 BREAST CANCER [facility] Test 04:28:50 SCREENING [code = BREAST CANCER SCREENING] Diagnostic Test 2020-02-14 [QL] CBC (INCLUDES [facility] Pending 00:00:00 DIFF/PLT) [code = [QL] CBC (INCLUDES DIFF/PLT)] Diagnostic Test 2020-02-14 [QLH] CMP W/EGFR [facility] Pending 00:00:00 [code = [QLH] CMP W/EGFR] Diagnostic Test 2020-01-10 Complete PFTs w/DLCO [facility] Pending 00:00:00 and Lung Volumes [code = Complete PFTs w/DLCO and Lung Volumes] Encounters Start End Encounter Admission Attending Care Care Encounter Source Date/Time Date/Time Type Type Clinicians Facility Department ID 2022-03-20 Outpatient [facility] [id number] [place] 06:49:35 [id number] [facility] 2023-10-22 2023-10-22 Outpatient ALEJANDRA NAJERA [id number] Alejandra 10:40:00 10:40:00 CIRILOERA Seybol d 2023-07-27 2023-07-27 Outpatient ALEJANDRA TOVAR [id number] Alejandra 10:00:00 10:00:00 EKATERINA Seybol d 2023-07-23 2023-07-23 Outpatient LAB90 ALEJANDRA PERES [id number] Alejandra 08:15:00 08:15:00 Seybol d 2023-07-16 2023-07-16 Outpatient MARY-KRISTIN PERES [id number] Alejandra 00:00:00 00:00:00 RAJ BLAIR Seybol d 2023-07-10 2023-07-10 Outpatient BRICE PERES [id number] Alejandra 00:00:00 00:00:00 MD MICHAEL Seybol d 2023-07-09 2023-07-09 Outpatient ALEJANDRA GARCÍA [id number] Alejandra 10:00:00 10:00:00 ABEL Seybol d 2023-07-09 2023-07-09 Outpatient ALEJANDRA PERES [id number] Alejandra 00:00:00 00:00:00 Seybol d 2023-07-07 2023-07-07 Outpatient ALEJANDRA DELUNA [id number] Alejandra 00:00:00 00:00:00 DEBBIE Seybol d 2023-07-07 2023-07-07 Outpatient ALEJANDRA NAJERA [id number] Alejandra 00:00:00 00:00:00 UMERA Seybol d 2023-07-01 2023-07-01 Outpatient MARY-SMI ALEJANDRA PERES [id number] Alejandra 11:00:00 11:00:00 TH, RAJ Seybol d 2023-06-24 2023-06-24 Outpatient MARY-KRISTIN PERES [id number] Alejandra 10:45:00 10:45:00 TH, RAJ Seybol d 2023-06-18 2023-06-18 Outpatient LAB90 ALEJANDRA PERES [id number] Alejandra 08:05:00 08:05:00 Seybol d 2023-06-11 2023-06-11 Outpatient ALEJANDRA TOVAR [id number] Alejandra 00:00:00 00:00:00 EKATERINA Seybol d 2023-05-28 2023-05-28 Outpatient ALEJANDRA DELUNA [id number] Alejandra 00:00:00 00:00:00 DEBBIE Seybol d 2023-05-26 2023-05-26 Outpatient ALEJANDRA TOVAR [id number] Alejandra 10:30:00 10:30:00 EKATERINA Seybol d 2023-05-25 2023-05-25 Outpatient ALEJANDRA TOVAR [id number] Alejandra 00:00:00 00:00:00 EKATERINA Seybol d 2023-05-20 2023-05-20 Outpatient DARYL WIGGINS [id number] Alejandra 00:00:00 00:00:00 Seybol d 2023-05-20 2023-05-20 Outpatient DARYL WIGGINS [id number] Alejandra 00:00:00 00:00:00 Seybol d 2023-05-20 2023-05-20 Outpatient BRICE PERES [id number] Alejandra 00:00:00 00:00:00 MD MICHAEL Seybol d 2023-05-20 2023-05-20 Outpatient DARYL WIGGINS [id number] Alejandra 00:00:00 00:00:00 Seybol d 2023-05-19 2023-05-19 Outpatient DARYL WIGGINSSEY ALEJANDRA [id number] Alejandra 00:00:00 00:00:00 Seybol d 2023-05-13 2023-05-13 Outpatient DARYL WIGGINS ALEJANDRA PERES [id number] Alejandra 00:00:00 00:00:00 Seybol d 2023-05-11 2023-05-11 Outpatient MIKIEALJEANDRA [id number] Alejandra 16:00:00 16:00:00 DEBBIE Seybol d 2023-05-09 2023-05-09 Outpatient DARYL WIGGINS ALEJANDRA PERES [id number] Alejandra 00:00:00 00:00:00 Seybol d 2023-05-08 2023-05-08 Outpatient ALEJANDRA TOVAR [id number] Alejandra 00:00:00 00:00:00 EKATERINA Seybol d 2023-05-01 2023-05-01 Outpatient ALEJANDRA TOVAR [id number] Alejandra 00:00:00 00:00:00 EKATERINA Seybol d 2023-04-30 2023-04-30 Outpatient ALEJANDRA TOVAR [id number] Alejandra 09:30:00 09:30:00 EKATERINA Seybol d 2023-04-30 2023-04-30 Outpatient LAB90 ALEJANDRA PERES [id number] Alejandra 08:10:00 08:10:00 Seybol d 2023-04-30 2023-04-30 Outpatient ALEJANDRA TOVAR [id number] Alejandra 00:00:00 00:00:00 EKATERINA Seybol d 2023-04-29 2023-04-29 Outpatient SABALALEJANDRA [id number] Alejandra 00:00:00 00:00:00 EKATERINA Seybol d 2023-04-29 2023-04-29 Outpatient ALEJANDRA TOVAR [id number] Alejandra 00:00:00 00:00:00 EKATERINA Seybol d 2023-04-28 2023-04-28 Outpatient ALEJANDRA TOVAR [id number] Alejandra 00:00:00 00:00:00 EKATERINA Seybol d 2023-04-21 2023-04-21 Outpatient ALEJANDRA NAJERA [id number] Alejandra 11:00:00 11:00:00 UMERA Seybol d 2023-04-17 2023-04-17 Outpatient ALEJANDRA DELUNA [id number] Alejandra 00:00:00 00:00:00 DEBBIE Seybol d 2023-04-10 2023-04-10 Outpatient ALEJANDRA TOVAR [id number] Alejandra 00:00:00 00:00:00 EKATERINA Seybol d 2023-04-08 2023-04-08 Outpatient ALEJANDRA TOVAR [id number] Alejandra 11:00:00 11:00:00 EKATERINA Seybol d 2023-04-08 2023-04-08 Outpatient ALEJANDRA TOVAR [id number] Alejandra 00:00:00 00:00:00 EKATERINA Seybol d 2023-04-08 2023-04-08 Outpatient ALEJANDRA PERES [id number] Alejandra 00:00:00 00:00:00 Seybol d 2023-04-08 2023-04-08 Outpatient ALEJANDRA TOVAR [id number] Alejandra 00:00:00 00:00:00 EKATERINA Seybol d 2023-04-03 2023-04-03 Outpatient ALEJANDRA TOVAR [id number] Alejandra 00:00:00 00:00:00 EKATERINA Seybol d 2023-04-02 2023-04-02 Outpatient LAB90 ALEJANDRA PERES [id number] Alejandra 09:45:00 09:45:00 Seybol d 2023-04-02 2023-04-02 Outpatient ALEJANDRA TOVAR [id number] Alejandra 09:00:00 09:00:00 EKATERINA Seybol d 2023-04-02 2023-04-02 Outpatient ALEJANDRA TOVAR [id number] Alejandra 00:00:00 00:00:00 EKATERINA Seybol d 2023-03-31 2023-03-31 Outpatient ALEJANDRA NOWAK [id number] Alejandra 14:30:00 14:30:00 TIO Seybo ld 2023-03-31 2023-03-31 Michaela Simmons.2.840.1 [id number] Method 00:00:00 00:00:00 Magalie Luevano 31300.1.1 [facility] 3.430.2.7 Hospit a .3.189155 l .8 2023-03-26 2023-03-26 Outpatient ALEJANDRA TOVAR [id number] Alejandra 00:00:00 00:00:00 EKATERINA Seybol d 2023-03-16 2023-03-16 Outpatient SABALALEJANDRA [id number] Alejandra 00:00:00 00:00:00 EKATERINA Seybol d 2023-03-16 2023-03-16 Outpatient SABAL, ALEJANDRA PERES [id number] Alejandra 00:00:00 00:00:00 EKATERINA Seybol d 2023-03-16 2023-03-16 Outpatient PREZAS, ALEJANDRA PERES [id number] Alejandra 00:00:00 00:00:00 ABEL Seybol d 2023-03-14 2023-03-14 Outpatient ALEJANDRA PERES [id number] Alejandra 00:00:00 00:00:00 Seybol d 2023-03-13 2023-03-13 Outpatient FELICIANO DARYL PERES [id number] Alejandra 14:00:00 14:00:00 Seybol d 2023-03-13 2023-03-13 Outpatient GUY, ALEJANDRA PERES [id number] Alejandra 00:00:00 00:00:00 EKATERINA Seybol d 2023-03-12 2023-03-12 Outpatient LAB90 ALEJANDRA PERES [id number] Alejandra 08:25:00 08:25:00 Seybol d 2023-03-12 2023-03-12 Outpatient ALEJANDRA PERES [id number] Alejandra 00:00:00 00:00:00 Seybol d 2023-03-11 2023-03-11 Outpatient ALEJANDRA TOVAR [id number] Alejandra 13:00:00 13:00:00 EKATERINA Seybol d 2023-03-11 2023-03-11 Outpatient ALEJANDRA PERES [id number] Alejandra 00:00:00 00:00:00 Seybol d 2023-02-10 2023-02-10 Outpatient LAB90 ALEJANDRA ALEJANDRA [id number] Alejandra 09:25:00 09:25:00 Seybol d 2023 2023 Outpatient DARYL WIGGINS ALEJANDRA PERES [id number] Alejandra 14:00:00 14:00:00 Seybol d 2023-02-03 2023-02-03 Refill Diego, 1.2.840.1 [id number] Methodi 00:00:00 00:00:00 Magalie Luevano [address]22.[address] 3.430.2.7 Hospit a .3.951557 l .8 2023-02-03 2023-02-03 Refill Diego, 1.2.840.1 [id number] Methodi 00:00:00 00:00:00 Magalie Luevano [address] 3.430.2.7 Hospit a .3.522717 l .8 2023-01-30 2023-01-30 Office Doc, 1.2.840.1 [id number] 2100 [id number] Methodi 14:30:00 14:55:08 Visit April [address]52.1.[address] [facility] 3.430.2.7 Hospit a .3.619266 l .8 2023-01-30 2023-01-30 Office Doc, 1.2.840.1 [id number] [id number] Methodi 14:30:00 14:55:08 Visit April [address]602.1.[address] [facility] 3.430.2.7 Hospit a .3.824833 l .8 2023-01-30 2023-01-30 Travel 1.2.840.1 1.2.480.972 5041 [id number] Methodi 00:00:00 00:00:[address] 3.430.2.7 0.2.7.3.698 Ho spita .3.418667 084.8 l .8 2023-01-30 2023-01-30 Travel 1.2.840.1 1.2.062.831 8008 [id number] Methodi 00:00:00 00:00:[address] 3.430.2.7 0.2.7.3.698 Ho spita .3.736339 084.8 l .8 2023-01-29 2023-01-29 Outpatient ALEJANDRA MAI [id number] Alejandra 15:30:00 15:30:00 CLAUDIA Seybol d 2023-01-29 2023-01-29 Outpatient ALEJANDRA DELUNA [id number] Alejandra 00:00:00 00:00:00 DEBBIE Seybol d 2023-01-28 2023-01-28 Outpatient BRICE PERES [id number] Alejandra 00:00:00 00:00:00 MD MICHAEL Seybol d 2023-01-28 2023-01-28 Outpatient DARYL WIGGINS [id number] Alejandra 00:00:00 00:00:00 Seybol d 2023-01-22 2023-01-22 Outpatient ALEJANDRA PERES [id number] Alejandra 00:00:00 00:00:00 Seybol d 2023-01-21 2023-01-21 Outpatient MARGARETTE PERES [id number] Alejandra 10:30:00 10:30:00 Seybol d 2023-01-14 2023-01-14 [facility] 1.2.840.1 [id number] Methodi 09:54:11 23:59:00 Encounter Magalie Chloé 33302.1.[address] 3.430.2.7 Hospit a .3.749694 l .8 2023-01-14 2023-01-14 [facility] 1.2.840.1 [id number] Methodi 09:54:11 23:59:00 Encounter Magalie Colink 34494.1.[address] 3.430.2.7 Hospit a .3.494527 l .8 2023-01-13 2023-01-13 Outpatient ALEJANDRA DELUNA [id number] Alejandra 00:00:00 00:00:00 DEBBIE Seybol d 2023-01-08 2023-01-08 Refill Irene, 1.2.840.1 [id number] Methodi 00:00:00 00:00:[address]ink [address].1.[address] 3.430.2.7 Hospit a .3.895903 l .8 2023-01-08 2023-01-08 Refill Irene, 1.2.840.1 [id number] 719 [id number] Methodi 00:00:00 00:00:[address] 3.430.2.7 Hospit a .3.832693 l .8 2023-01-05 2023-01-05 Outpatient ALEJANDRA PERES [id number] Alejandra 13:45:00 13:45:00 Seybol d 2023-01-05 2023-01-05 Outpatient DARYL WIGGINS [id number] Alejandra 13:30:00 13:30:00 Seybol d 2022-12-16 2022-12-16 Refill Irene, 1.2.840.1 [id number] [id number] Methodi 00:00:00 00:00:00 Magalie Fink [address]75.1.[address] 3.430.2.7 Hospit a .3.166225 l .8 2022-12-16 2022-12-16 Refill Diego, 1.2.840.1 [id number] 841 [id number] Methodi 00:00:00 00:00:[address] 3.430.2.7 Hospit a .3.941287 l .8 2022-12-11 2022-12-11 Outpatient ALEJANDRA TOVAR [id number] Alejandra 14:30:00 14:30:00 EKATERINA Seybol d 2022-12-11 2022-12-11 Outpatient TESTING, KAREN PERES [id number] Alejandra 14:00:00 14:00:00 Seybol d 2022-11-26 2022-11-26 Outpatient MIKIESHAUNNA HESSHIMA PERES [id number] Alejandra 10:30:00 10:30:00 DEBBIE Eastonol d 2022-11-24 2022-11-24 Outpatient SHAUNNA DELUNAHIMA PERES [id number] Alejandra 00:00:00 00:00:00 DEBBIE [place] d 2022-11-21 2022-11-21 Refill Diego, 1.2.840.1 [id number] [id number] Methodi 00:00:00 00:00:[address] 3.430.2.7 Hospit a .3.373237 l .8 2022-11-21 2022-11-21 Refill Irene, 1.2.840.1 [id number] 913 [id number] Methodi 00:00:00 00:00:[address]ink [address] 3.430.2.7 Hospit a .3.284188 l .8 2022-10-29 2022-10-29 Refill Irene, 1.2.840.1 [id number] 571 [id number] Methodi 00:00:00 00:00:[address]ink [address]43.1.[address] 3.430.2.7 Hospit a .3.333125 l .8 2022-10-29 2022-10-29 Refill Irene, 1.2.840.1 [id number] 477 [id number] Methodi 00:00:00 00:00:[address]ink [address] 3.430.2.7 Hospit a .3.590304 l .8 2022-10-05 2022-10-05 Refill Diego, 1.2.840.1 [id number] 363 [id number] Methodi 00:00:00 00:00:[address]ink [address] 3.430.2.7 Hospit a .3.972208 l .8 2022-10-05 2022-10-05 Refill Irene, 1.2.840.1 [id number] 741 [id number] Methodi 00:00:00 00:00:00 Magalie Luevano [address] 3.430.2.7 Hospit a .3.714852 l .8 2022-09-09 2022-09-09 Refill Irene, 1.2.840.1 [id number] 819 [id number] Methodi 00:00:00 00:00:00 Mag[address]k [address] 3.430.2.7 Hospit a .3.029949 l .8 2022-09-09 2022-09-09 Refill Irene, 1.2.840.1 [id number] 368 [id number] Methodi 00:00:00 00:00:[address]k 80110.[address] 3.430.2.7 Hospit a .3.726790 l .8 2022-08-15 2022-08-15 Refill Diego, 1.2.840.1 [id number] 083 [id number] Methodi 00:00:00 00:00:00 [address]k [address] 3.430.2.7 Hospit a .3.652724 l .8 2022-08-15 2022-08-15 Refill Diego, 1.2.840.1 [id number] 304 [id number] Methodi 00:00:00 00:00:00 [address]k [address] 3.430.2.7 Hospit a .3.267770 l .8 2022-08-01 2022-08-01 Hospital Diego, 1.2.840.1 [id number] 21 [id number] Methodi 10:30:07 23:59:00 Encounter Magalie Shawk 79393.1.[address] 3.430.2.7 Hospit a .3.515051 l .8 2022-08-01 2022-08-01 Hospital Diego, 1.2.840.1 [id number] Methodi 10:30:07 23:59:00 Encounter Magalie Shawk 77947.1.[address] 3.430.2.7 Hospit a .3.590185 l .8 2022-07-22 2022-07-22 [facility] Solange Izaguirre 1.2.840.1 [id number] Methodi 11:36:44 23:59:00 Encounter Ellie España 74561.1.[address] 3.430.2.7 Hospit a .3.215528 l .8 2022-07-22 2022-07-22 Office Diego, 1.2.840.1 [id number] Methodi 14:45:00 15:01:19 Visit Magalie Luevano 33468.1.[address] 3.430.2.7 Hospit a .3.031142 l .8 2022-07-21 2022-07-21 Office Anne, 1.2.840.1 [id number] 4399 Methodi 13:00:00 13:09:55 Visit Solange 59988.1.[address] Rosa 3.430.2.7 Hosp macy .3.299629 l .8 2022-07-21 2022-07-21 Travel 1.2.840.1 1.2.642.599 9094 213016 Methodi 00:00:00 00:00:[address] 3.430.2.7 0.2.7.3.698 Ho spita .3.714028 084.8 l .8 2022-05-30 2022-05-30 Travel 1.2.840.1 1.2.223.710 0363 446861 Methodi 00:00:00 00:00:[address] 3.430.2.7 0.2.7.3.698 Ho spita .3.593620 084.8 l .8 2022-05-30 2022-05-30 Orders Diego, 1.2.840.1 [id number] [facility] 00:00:00 00:00:00 Only Magalie Luevano 93329.1.[address] 3.430.2.7 Hospit a .3.435087 l .8 2022-05-30 2022-05-30 Orders Cullen, 1.2.840.1 [id number] 97750 26586 [facility] 00:00:00 00:00:00 Only Ruth 63484.1.[address] 3.430.2.7 Hospit a .3.145759 l .8 2022-01-13 2022-01-13 [facility], 1.2.840.1 [id number] Methodi 13:18:13 23:59:00 Encounter Magalie Luevano 70372.1.[address] 3.430.2.7 Hospit a .3.114573 l .8 2022-01-13 2022-01-13 [facility], 1.2.840.1 [id number] [id number] Methodi 15:45:00 15:45:00 Visit Magalie Luevano 25315.1.[address] 3.430.2.7 Hospit a .3.903785 l .8 2022-01-13 2022-01-13 Travel 1.2.840.1 1.2.597.715 4897 [id number] [facility] 00:00:00 00:00:[address] 3.430.2.7 0.2.7.3.698 Ho spita .3.064905 084.8 l .8 2021-11-22 2021-11-22 Travel 1.2.840.1 1.2.735.276 8451 117007 [facility] 00:00:00 00:00:[address] 3.430.2.7 0.2.7.3.698 Ho spita .3.818998 084.8 l .8 2021-11-21 2021-11-21 Orders Doc, 1.2.840.1 [id number] 2100 [id number] [facility] 00:00:00 00:00:00 Only April 28461.1.[address] Samia 3.430.2.7 Hospit a .3.078984 l .8 2021-11-20 2021-11-20 Office Anne, 1.2.840.1 [id number] [facility]i 13:00:00 13:36:08 Visit Solange 30978.1.[address] Rosa 3.430.2.7 Hosp [facility] .3.547266 l .8 2021-11-20 2021-11-20 Travel 1.2.840.1 1.2.720.911 9296 [id number] [facility] 00:00:00 00:00:[address] 3.430.2.7 0.2.7.3.698 Ho spita .3.022699 084.8 l .8 2021-08-02 2021-08-02 Telephone Chable, 1.2.840.1 [id number] 2100 [id number] [facility] 00:00:00 00:00:[address] 3.430.2.7 Hospit a .3.417038 l .8 2021-08-01 2021-08-01 [facility], 1.2.840.1 [id number] 75044 [facility] 11:06:14 23:59:00 Encounter Julia 46004.1.[address] 3.430.2.7 Hospit a .3.104914 l .8 2021-08-01 2021-08-01 Outpatient [facility] [id number] 148 [place] 00:00:00 00:00:[address] JULIA [address] 2021-08-01 2021-08-01 Travel 1.2.840.1 1.2.738.310 4843 [id number] [facility] 00:00:00 00:00:[address] 3.430.2.7 0.2.7.3.698 Ho spita .3.680829 084.8 l .8 2021-06-27 2021-06-27 Outpatient [facility] [id number] [place] 00:00:00 00:00:[address] JULIA [address] 2021-03-21 2021-03-21 Outpatient ANNE, [facility] [id number] [place] 00:00:00 00:00:00 SOLANGE [address] 2021-03-21 2021-03-21 Outpatient TACO, [facility] [id number] 524 [place] 00:00:00 00:00:00 TARRIK [address] 2020-12-21 2020-12-21 Outpatient DIEGO, [facility] 2100 [id number] [place] 00:00:00 00:00:00 MAGALIE [address] 2020-12-21 2020-12-21 Outpatient DIEGO, [facility] 2100 [id number] [place] 00:00:00 00:00:00 MAGALIE [address] 2020-12-21 2020-12-21 Outpatient [facility] [id number] [place] 00:00:00 00:00:[address] 2020-11-15 2020-11-15 Outpatient DIEGO, [facility] 2100 [id number] [place] 00:00:00 00:00:00 MAGALIE [address] 2020-10-26 2020-10-26 Outpatient [facility] [id number] 528 [place] 00:00:00 00:00:[address] 2020-10-11 2020-10-11 Outpatient DIEGO, [facility] 2100 [id number] [place] 00:00:00 00:00:00 MAGALIE [address] 2020-09-26 2020-09-26 Outpatient DIEGO, [place] [address] 2100 [id number] [place] 00:00:00 00:00:00 MAGALIE [address] 2020-09-21 2020-09-21 Outpatient DIEGO, [facility] 2100 [id number] [place] 00:00:00 00:00:00 MAGALIE [address] 2020-09-06 2020-09-06 Outpatient ANDRADE, [facility] [id number] [place] 00:00:00 00:00:00 JULIA [address] 2020-09-06 2020-09-06 Outpatient DIEGO, [facility] 2100 [id number] [place] 00:00:00 00:00:00 MAGALIE [address] 2020-08-29 2020-08-29 Outpatient ANDRADE, [facility] [id number] [place] 00:00:00 00:00:00 JULIA 701 [facility] 2020-07-19 2020-07-19 Outpatient ANNE, [facility] [id number] [place] 00:00:00 00:00:00 SOLANGE [address] 2020-07-10 2020-07-10 Outpatient DIEGO, [facility] 2100 [id number] [place] 00:00:00 00:00:00 MAGALIE [address] 2020-06-27 2020-06-27 Outpatient ANDRADE, [facility] [id number] [place] 00:00:00 00:00:00 JULIA [address] 2020-06-21 2020-06-21 Outpatient DIEGO, [facility] 2100 [id number] [place] 00:00:00 00:00:00 MAGALIE [address] 2020-06-13 2020-06-13 Outpatient DIEGO, [facility] 2100 [id number] [place] 00:00:00 00:00:00 MAGALIE [address] 2020-06-13 2020-06-13 Outpatient DIEGO, [place] [address] [id number] [id number] [place] 00:00:00 00:00:00 MAGALIE [address] 2020-06-11 2020-06-11 Outpatient DIEGO, [facility] 2100 [id number] [place] 00:00:00 00:00:00 MAGALIE [address] 2020-06-11 2020-06-11 Outpatient DIEGO, [facility] 2100 [id number] [place] 00:00:00 00:00:00 MAGALIE [address] 2020-06-06 2020-06-06 Outpatient DIEGO, [facility] 2100 [id number] [place] 00:00:00 00:00:00 MAGALIE [address] 2020-06-06 2020-06-06 Outpatient DIEGO, [facility] 2100 [id number] [place] 00:00:00 00:00:00 MAGALIE [address] 2020-06-06 2020-06-06 Outpatient DIEGO, [facility] 2100 [id number] [place] 00:00:00 00:00:00 MAGALIE [address] 2020-06-06 2020-06-06 Outpatient DIEGO, [facility] 2100 [id number] [place] 00:00:00 00:00:00 MAGALIE [address] 2020-06-01 2020-06-01 Outpatient ANNE, [facility] [id number] [place] 00:00:00 00:00:00 SOLANGE [address] 2020-06-01 2020-06-01 Outpatient ANNE, [facility] [id number] [place] 00:00:00 00:00:00 SOLANGE [address] 2020-06-01 2020-06-01 Outpatient ANNE, [facility] [id number] [place] 00:00:00 00:00:00 SOLANGE [address] 2020-06-01 2020-06-01 Outpatient ANNE, [facility] [id number] [place] 00:00:00 00:00:00 SOLANGE [address] 2020-05-30 2020-05-30 Outpatient ANDRADE, [facility] [id number] [place] 00:00:00 00:00:00 JULIA 688 [facility] 2020-04-24 [facility] [id number] [place] 11:00:00 11:00:00 t; JOSH VELAZQUEZ M.D. lty - Physici Aby MORENO [facility] 2020-03-20 2020-03-20 Outpatient SHKEDY, [facility] [id number] [place] 00:00:00 00:00:00 MARY GRACE [address] 2020-03-20 2020-03-20 Outpatient SHKEDY, [facility] [id number] [place] 00:00:00 00:00:00 MARY GRACE [address] 2020-03-13 2020-03-13 Outpatient DIEGO, [facility] 2100 [id number] [place] 00:00:00 00:00:00 MAGALIE [address] 2020-03-09 2020-03-09 Outpatient DIEGO, [facility] 2100 [id number] [place] 00:00:00 00:00:00 MAGALIE [address] 2020-02-13 2020-02-13 Outpatient DIEGO, [facility] 2100 [id number] [place] 00:00:00 00:00:00 MAGALIE [address] 2020-01-12 2020-01-12 Outpatient OROPEZA, [facility] [id number] [place] 00:00:00 00:00:00 SOLANGE [address] 2020-01-10 2020-01-10 Appointrosie VELAZQUEZ, AYALA [facility] [id number] [place] 11:00:00 11:00:00 t; JOSH VELAZQUEZ M.D. lty - Physici BINH, M.D. [facility] 2019-12-28 2019-12-28 Outpatient Jeffrey-Mbayo VFP VFP [phone] [facility] 07:20:00 07:20:00 _A_ [id number] 2019-11-29 2019-11-29 Appointrosie VELAZQUEZAYALA BURCH [facility] [id number] [place] 08:00:00 08:00:00 t; JOSH VELAZQUEZ M.D. lty - Physici BINH, M.D. [facility] 2019-09-20 2019-09-20 Outpatient JESSE [facility] [id number] [place] 00:00:00 00:00:00 MARY GRACE [address] Results Test Description Test Time Test Comments Results Result Comments Source [facility]23-[facility]11 19:08:01 Test Item Value Reference Range Interpretation Comme nts QuantaF left side (test code 0.95 See_Comment [Automated message] The system = 39566-8S) which generated this result transmitted ref erence range: 1.40 - 0.90 NA. The re ference range was not used to interpr et this result as normal/abnormal . QuantaF right side (test 1.01 See_Comment P resentation Factors: Hypertension, code = 30716-2F) Hyperlipide inder, DiabetesExercise Modality: At Re stNormal - 1.40 - 1.00Borderline - 0.99 - 0.90Mild - 0.89 - 0.60Mode rate - 0.59 - 0.30Severe - 0. 29 - 0.00 [Automated message] The sy stem which generated this result tra nsmitted reference range: 1.40 - 0 .90 NA. The reference range was not u sed to interpret this result as jean claude l/abnormal. Alejandra LeijaSARS-CoV-2 (COVID-19) RNA [Presence] in Respiratory specimen by RAGHAV with probe [id number] 19:02:35 Test Item Value Reference Range Interpretation Comments SARS-CoV-2 (COVID-19) RNA Not detected Not-Detected [Presence] in Respiratory specimen by RAGHAV with probe detection (test code = 96179-5) [facility] RNA [Presence] in Respiratory specimen by RAGHAV with probe [id number] 22:05:04 Test Item Value Reference Range Interpretation Comments SARS-CoV-2 (COVID-19) RNA Not detected Not-Detected [Presence] in Respiratory specimen by RAGHAV with probe detection (test code = 49456-1) [facility][U] XRAY SPINE LUMBOSACRAL 2 OR 3 [id number] [id number] 2020-04-24 11:44:00 Test Item Value Reference Range [...] arthropathy. 04/24/2020 3:53 PM CDT Aura Nava [facility][QL] CBC (INCLUDES DIFF/PLT)2020-02-14 22:00:00 Test Item Value Reference Range Interpretation Comments WHITE BLOOD CELL 7.8 3.8-10.8 N COUNT (test code = {Thousand/u} WHITE BLOOD CELL COUNT) RED BLOOD CELL 4.00 3.80-5.10 N COUNT (test code = {Million/uL} RED BLOOD CELL COUNT) HEMAGLOBIN; Normal 12.0 g/dl 11.7-15.5 N (test code = 87329-0) HEMATOCRIT; Normal 36.6 % 35.0-45.0 N (test code = 4544-3) MCV; Normal (test 91.5 fL 80.0-100.0 N code = 787-2) MCHC; Normal (test 32.8 g/dl 32.0-36.0 N code = 25417-2) RDW; Normal (test 13.4 % 11.0-15.0 N code = 788-0) PLATELET COUNT; 281 140-400 N Normal (test code = {Thousand/u} 777-3) MPV; Normal (test 10.2 fL 7.5-12.5 N code = 85935-9) ABSOLUTE 4719 6948-9683 N NEUTROPHILS (test {cells/uL} code = ABSOLUTE [...] Normal 5.7 % N (test code = 92035-3) EOSINOPHILS; Normal 2.7 % N (test code = 79387-5) BASOPHILS; Normal 1.3 % N NO COLLECT ION DATE (test code = [place] [address]-7) USEDTHE DATE E SPECIMEN WAS RE CEIVED BY [facility] THE COLLECTION DATE. IF THISIS INCOR RECT, PLEASE CONTACT CLIENT SERVICES.PHONE NUMBER: [phone] [facility][QL] GREYSON [id number] 22:00:00 Test Item Value Reference Range Interpretation [...] eGFR NON- 41 > OR = 60 CHINESE (test {ML/MIN/1.7} code = eGFR NON-) eGFR 47 > OR = 60 CHINESE (test {ML/MIN/1.7} code = eGFR ) BUN/CREATININE [...] mg/dl 0.2-1.2 N Normal (test code = 64701-7) ALKALINE 93 u/l 37-153 N PHSPHATASE (test code = ALKALINE PHSPHATASE) AST; Normal (test 15 u/l 10-35 N code = 1916-6) ALT; Normal (test 14 u/l 6-29 N code = 1742-6) [facility]] CBC (INCLUDES DIFF/PLT)2020-01-10 11:45:01 Test Item Value Reference Range Interpretation Comments WBC (test code = 6690-2) 10.0 {K/CMM} 3.7-10.4 RBC (test code = 789-8) 4.36 {M/CMM} 4.20-5.40 Hgb (test code = 718-7) 12.8 g/dl 12.0-16.0 Hct (test code = 01919-4) 38.9 % 36.0-48.0 MCV (test code = 787-2) 89.3 fL 80.0-98.0 MCH (test code = 785-6) 29.3 pg 27.0-31.0 MCHC (test code = 786-4) 32.9 g/dl 32.0-36.0 RDW (test code = 788-0) 14.2 % 11.5-14.5 Platelet (test code = 00523-7) 279 {K/CMM} 133-450 Mean Platelet Volume (test code 8.3 fL 7.4-10.4 = 40878-7) [facility]] [id number] 11:45:01 Test Item Value Reference Range Interpretation Comments Segmented Neutrophils (test code 67.6 % 45.0-75.0 = 22744-0) Monocytes (test code = 46949-6) 8.4 % 2.0-12.0 Lymphocytes (test code = 64016-5) 21.1 % 20.0-40.0 Eosinophils (test code = 54637-6) 1.4 % 0.0-4.0 Basophils; Above High Threshold 1.5 % 0.0-1.0 (test code = 706-2) Segs-Bands # (test code = 6.8 {K/CMM} 1.5-8.1 18918-4) Lymphocytes # (test code = 2.1 {K/CMM} 1.0-5.5 05042-6) Monocytes # (test code = 44172-7) 0.8 {K/CMM} 0.0-0.8 Eosinophils # (test code = 0.1 {K/CMM} 0.0-0.5 63743-4) Basophils # (test code = 79036-9) 0.2 {K/CMM} 0.0-0.2 [facility][QL] CMP [id number] 11:45:01 Test Item Value Reference Range Interpretation Comments Sodium Level 138 {mEq/l} 135-145 (test code = 2951-2) Potassium Level 4.9 {mEq/l} 3.5-5.1 (test code = 2823-3) Chloride Level 104 {mEq/l} 95-109 (test code = 2075-0) Carbon Dioxide 29 {mEq/l} 24-32 (test code = 8-9) AGAP; Below Low 9.9 {mEq/l} 10.0-20.0 Threshold (test code = 72605-5) Glucose Lvl; 123 mg/dl 70-99 Adult reference range Above High values reflect the Threshold (test clinical mariella delinesof the code = 2345-7) [place] [employer]. Creatinine Lvl 1.20 mg/dl 0.50-1.40 (test code = 2160-0) Blood Urea 36 mg/dl 7-22 Nitrogen; Above High Threshold (test code = 3094-0) BUN/Creatinine 30 6-25 Ratio; Above High Threshold (test code = 3097-3) Total Protein 8.0 g/dl 6.4-8.4 (test code = 2885-2) Albumin Lvl (test 4.1 g/dl 3.5-5.0 code = 1751-7) Globulin (test 3.9 g/dl 2.7-4.2 code = 07002-6) A/G Ratio (test 1.1 0.7-1.6 code = 1759-0) Calcium Level 9.5 mg/dl 8.5-10.5 Total (test code = 63897-5) ALT (test code = 33 u/l 0-65 1743-4) AST (test code = 22 u/l 0-37 72602-3) Bili Total (test 0.4 mg/dl 0.2-1.3 code = 1975-2) Alk Phos (test 111 u/l 39-136 The pediatric reference code = 1783-0) ranges for th is test represent a CLSI-basedtrans ference of the CALIPER christina abase of pediatric refer ence intervals to th eSiemens Gilchrist analyzer (Clinical Biochemistry 46 (2013): 2070-5149). [facility] has not internally validated these reference ranges and therefore they should be used only in th e context of a thoroughcl inical assessment. eGFR (test code = 47 The eGFR i s calculated 80645-3) {ML/MIN/1.7} using the CKD-E PI formula. In [...] be multiplied by t he estimated BMI. [facility][QL] C-REACTIVE [id number] 11:45:01 Test Item Value Reference Range Interpretation Comments CRP (test code = CRP) 20.4 mg/L <=2.9 [facility][QL] SED RATE BY MODIFIED [id number] 11:45:01 Test Item Value Reference Range Interpretation Comments Sedimentation Rate; Above High 25 {mm/hr} 0-20 Threshold (test code = 37309-5) [facility] Chest 2 views [id number] 09:40:00Exam: Two-view chest x- rayReason for Exam: - SOBComparison Exam: NoneDiscussion:Cardiomediastinal lamont houette is within normal limits. Both hemidiaphragms wellvisualized. No pulmonary edema or pleural effusions. No focal lungconsolidations. Trachea is midline.No acute bony abnormalities. Mild multilevel degenerative disc disease seenwithin the thoracic spine.Impression:1. No acute cardiopulmonary abnor malities.--Read by: Max Dominguezictated Date/time: 11/29/19 10:18Electronically Signed by: Max Dominguez MD 11/29/2009:21FINAL REPORT [facility] Hand AP lateral oblique Bilateral [id number] 09:40:00 EXAM: Hand 3 views Bilateral DXHISTORY: [...] 10:38Electronically Signed by: Ganga Pascal MD 11/29/2009:43FINAL REPORTUT PhysiciansHip bilat w pelvis 3/4 views [id number] 09:40:00EXAM: Hip bilat w pelvis 3/4 views [...] 11/29/2009:44FINAL REPORTUT [facility]iciansX[facility] Foot 2 Views Bilateral [id number] 09:40:00EXAM: Foot 2 views bilateral DXHISTORY: - M25.50 Pain in unspecified joint,COMPARISON: None2 views of both feetFINDINGS: Prominent bilateral superior and inferior calcaneal spurs. Smallsuperior midfoot spurs. Mild right distal anterior tibial osteophyte formation.No fracture or dislocation.IMPRESSION:No acute abnormality.--Read by: Ganga Pascal MDDictated Date/time: 11/29/19 10:44Electronically Signed by: Ganga Pascal MD 11/29/2009:46FINAL REPORTUT [facility]] CBC (INCLUDES DIFF/PLT) 2019-11-29 09:18:01 Test Item Value Reference Range Interpretation Comments WBC (test code = 6690-2) 7.8 {K/CMM} 3.7-10.4 RBC; Below Low Threshold (test 4.15 {M/CMM} 4.20-5.40 code = 789-8) Hgb (test code = 718-7) 12.4 g/dl 12.0-16.0 Hct (test code = 79573-8) 37.6 % 36.0-48.0 MCV (test code = 787-2) 90.4 fL 80.0-98.0 MCH (test code = 785-6) 29.8 pg 27.0-31.0 MCHC (test code = 786-4) 33.0 g/dl 32.0-36.0 RDW (test code = 788-0) 13.5 % 11.5-14.5 Platelet (test code = 32242-2) 252 {K/CMM} 133-450 Mean Platelet Volume (test code 8.5 fL 7.4-10.4 = 40206-3) [facility]] [id number] 09:18:01 Test Item Value Reference Range Interpretation Comments Segmented Neutrophils (test code 57.0 % 45.0-75.0 = 34620-2) Monocytes (test code = 94426-8) 8.8 % 2.0-12.0 Lymphocytes (test code = 93021-7) 29.8 % 20.0-40.0 Eosinophils (test code = 91118-4) 3.2 % 0.0-4.0 Basophils; Above High Threshold 1.2 % 0.0-1.0 (test code = 706-2) Segs-Bands # (test code = 4.4 {K/CMM} 1.5-8.1 51520-4) Lymphocytes # (test code = 2.3 {K/CMM} 1.0-5.5 20027-1) Monocytes # (test code = 11888-0) 0.7 {K/CMM} 0.0-0.8 Eosinophils # (test code = 0.2 {K/CMM} 0.0-0.5 24670-5) Basophils # (test code = 46935-5) 0.1 {K/CMM} 0.0-0.2 [facility]] HEPATITIS [id number] 09:18:01 Test Item Value Reference Range Interpretation Comments Hepatitis B Surface Antigen (test Negative Negative code = 5195-3) Hepatitis C Antibody (test code = Negative Negative 59292-9) Hepatitis B Core IgM (test code = Negative Negative 07843-9) Hepatitis A IgM (test code = Negative Negative 08389-1) [facility]] CMP [id number] 09:18:01 Test Item Value Reference Range Interpretation Comments Sodium Level 140 {mEq/l} 135-145 (test code = 2951-2) Potassium Level 4.5 {mEq/l} 3.5-5.1 (test code = 2823-3) Chloride Level 106 {mEq/l} 95-109 (test code = 2075-0) Carbon Dioxide 27 {mEq/l} 24-32 (test code = 2027-9) AGAP (test code = 11.5 {mEq/l} 10.0-20.0 81745-0) Glucose Lvl; 116 mg/dl 70-99 Adult reference range Above High values reflect the Threshold (test clinical mariella delinesof the code = 2345-7) [place] [employer]. Creatinine Lvl 1.20 mg/dl 0.50-1.40 (test code = 2160-0) Blood Urea 24 mg/dl 7-22 Nitrogen; Above High Threshold (test code = 3094-0) BUN/Creatinine 20 6-25 Ratio (test code = 3097-3) Total Protein 7.8 g/dl 6.4-8.4 (test code = 2885-2) Albumin Lvl (test 4.0 g/dl 3.5-5.0 code = 1751-7) Globulin (test 3.8 g/dl 2.7-4.2 code = 63783-5) A/G Ratio (test 1.1 0.7-1.6 code = 1759-0) Calcium Level 8.9 mg/dl 8.5-10.5 Total (test code = 99208-0) ALT (test code = 25 u/l 0-65 1743-4) AST (test code = 20 u/l 0-37 66606-5) Bili Total (test 0.3 mg/dl 0.2-1.3 code = 1975-2) Alk Phos (test 119 u/l 39-136 The pediatric reference code = 1783-0) ranges for th is test represent a CLSI-basedtrans ference of the CALIPER christina abase of pediatric refer ence intervals to eSiemens Gilchrist analyzer (Clinical Biochemistry 46 (2013): 3891-2666). [facility] has not internally validated these reference ranges and therefore they should be used only in th e context of a thoroughcl inical assessment. eGFR (test code = 47 The eGFR i s calculated 04014-5) {ML/MIN/1.7} using the CKD-E PI formula. In [...] multiplied by t he estimated BMI. [facility][QL] RHEUMATOID [id number] 09:18:01 Test Item Value Reference Range Interpretation Comments Rheumatoid Factor Quantitative; 428 {IU/ml} 0-20 Above High Threshold (test code = 05727-5) [facility][QL] C-REACTIVE [id number] 09:18:01 Test Item Value Reference Range Interpretation Comments CRP (test code = CRP) 18.8 mg/L <=2.9 [facility][QL] SED RATE BY MODIFIED [id number] 09:18:01 Test Item Value Reference Range Interpretation Comments Sedimentation Rate; Above High 30 {mm/hr} 0-20 Threshold (test code = 06031-2) [facility][QH] CYCLIC CITRULLINATED PEPTIDE (CCP) AB (IGG)2019-11-29 09:18:01 Test Item Value Reference Range Interpretation Comments Cyclic Citrulline Peptide Antibody <0.5 <=2.9 (test code = 48397-6) [facility][LH] Antinuclear [id number] 09:18:01 Test Item Value Reference Range Interpretation Comments Antinuclear Antibody Screen; Positive Negative A Abnormal (test code = 66718-8) [facility][H] Antinuclear Antibody [id number] 09:18:01 Test Item Value Reference Range Interpretation Comments VAMSHI Titer; Abnormal (test code = 1:40 Negative A 5048-4) [facility][H] Antinuclear Antibody [id number] 09:18:01 Test Item Value Reference Range Interpretation Comments VAMSHI Interp (test code Pattern appears = VAMSHI Interp) speckled [facility][QH] T-Spot [id number] 09:18:01 Test Item Value Reference Range Interpretation Comments T-Spot.TB (test code = T-Spot.TB) Negative Negative [facility] Date/Time Note Provider Source 2023-07-01 10:44:50-00:00 Formatting of this note is d ifferent from the original. [facility] Chief Complaint Patient presents with Well Woman Exam PHQ:0 JOE:3 Yesika To
[2023-07-26] MEDS ORDERED: NA CHLORIDE 0.9% 1,000 ML ONE (12:10)
[2023-07-26 12:22] LABS: Specific Gravity 1.013 (1.005-1.030); Urine Bilirubin NEGATIVE (Negative); Urine Blood Negative (Negative); Urine Clarity Clear (Clear); Urine Color Light-Yellow (Yellow); Urine Glucose 4+ (Over) (Negative); Urine Protein NEGATIVE (Negative); Urine Urobilinogen Normal (Normal); Urine pH 5.5 (5.0-7.0)
[2023-07-26 12:39] LABS: Albumin 3.8 g/dL (3.4-5.0); Bilirubin Total 0.5 mg/dL (0.2-1.0); Potassium 4.2 mEq/L (3.5-5.1)
[2023-07-26 12:55] LABS: Absolute Lymphocytes (CBC) 1.6 K/uL (0.7-4.9); Hematocrit 37.6 % (36.0-45.0); Lymphocytes % 10.7 % (15.3-44.8); MCV 89.7 fL (80-100); MPV 8.2 fL (7.6-11.3); Platelets 325 thou/uL (152-406); RBC Red Blood Cell Count 4.19 M/uL (3.86-4.86)
--- NOTE | 2023-07-26 13:42 | RAD REPORT ---
EXAM DESCRIPTION: CT - Abdomen Pelvis Wo Contrast - 07/26/2023 12:59 pm CLINICAL HISTORY: ABD PAIN COMPARISON: Abdomen Pelvis W Contrast dated 09/29/2018 TECHNIQUE: Thin cut axial CT imaging of the abdomen and pelvis was performed without IV contrast. Mu ltiplanar reformats were generated and reviewed. All CT scans are performed using dose optimization technique as appropriate and may include automated exposure control or mA/KV adjustment according to patient size. FINDINGS: No suspicious findings in the lung bases. The liver, spleen, and pancreas show no suspicious findings. Gallbladder and biliary tree are also wi thout suspicious finding. Symmetric renal contour, without suspicious parenchymal findings within limits of noncontrast techniq ue. Stable exophytic cysts of the kidneys, including a medial 5.3 x 3.9 cm cyst with wall and septal calcifications, and an exophytic lower pole 5.8 x 7.4 cm cyst. No evidence of radiopaque calculi or h ydroureteronephrosis. No dilated bowel loops. Colonic diverticulosis. Inflammatory changes with wall thickening involving t he proximal to mid sigmoid colon in the pelvis. Fat stranding extends caudally towards the vaginal cu ff, with some fat stranding extending into the perirectal fat. No free air, free fluid or evidence of fluid collections within limits of noncontrast evaluation. . No hernia, mass or bulky lymphadenopath y. The urinary bladder is without significant finding. No suspicious bony findings. IMPRESSION: Sequelae of sigmoid diverticulosis as above without evidence of complications. Some fat stranding extends caudally towards the vaginal cuff and into the perirectal fat. The findings were communicated to Dr. Pro On 07/26/2023 at 13:26 hours.
[2023-07-26] MEDS ORDERED: AMOX/K CLAV 875 MG TAB ONE (14:43)
[2023-07-26] MEDS ORDERED: Levofloxacin 750mg IV 750 MG/150 ML BAG IV ONE (15:39)
--- NOTE | 2023-07-26 15:39 | ER ---
Nurse's Notes [facility] Name: Annabella Trevino Age: 68 yrs Sex: Female : 1955 Arrival Date: 07/26/2023 Time: 11:17 Bed 20 Private MD: Diagnosis: Diverticulitis of large intestine without perforation or abscess without bleeding Presentation: 07/26 11:28 Chief complaint: Patient states: Unable to have BM and unable to void for the past few ss days. Pt uses a vaginal dilator after previous radiation and when she used it yesterday, it was painful. Pt states, "I think my bladder dropped.". Coronavirus screen: Client denies travel out of the [place] in the last 14 days. Ebola Screen: Patient denies exposure to infectious person. Patient denies travel to an Ebola-affected area in the 21 days before illness onset. Initial Sepsis Screen: Does the patient meet any 2 criteria? No. Patient's initial sepsis screen is negative. Does the patient have a suspected source of infection? No. Patient's initial sepsis screen is negative. Risk Assessment: Do you want to hurt yourself or someone else? Patient reports no desire to harm self or others. Onset of symptoms is unknown. 11:28 Method Of Arrival: Ambulatory ss 11:28 Acuity: RENETTA 3 ss Historical: - Allergies: 17:55 Levaquin IV; me1 - Home Meds: 11:37 ipratropium-albuterol 0.5 mg-3 mg(2.5 mg base)/3 mL Inhl Solution for Nebulization as hb needed [Active]; simvastatin 40 mg Oral tablet every day at bedtime [Active]; Ventolin Rotahaler/Rotacaps Nebulizer 200 micrograms four times a day [Active]; lisinopril 20 mg Oral tablet daily [Active]; fluticasone propionate 50 mcg/actuation intranasal spray, suspension daily [Active]; Vitamin D3 10 mcg (400 unit) oral capsule daily [Active]; calcium carbonate 600 mg calcium (1,500 mg) Oral tablet every other day [Active]; hydrochlorothiazide 12.5 mg Oral capsule daily [Active]; allopurinol 100 mg Oral tablet 2 times per day [Active]; letrozole 2.5 mg oral tablet daily [Active]; metformin 1,000 mg Oral Tablet, Extended Release 24 hr daily [Active]; montelukast 10 mg oral tablet every day at bedtime [Active]; Ozempic 0.25 mg or 0.5 mg (2 mg/3 mL) subcutaneous Pen Injector every week [Active]; fluticasone propion-salmeterol 113-14 mcg/actuation inhalation Aerosol Powder, Breath Activated 1 inhalation 2 times per day [Active]; Spiriva Respimat 2.5 mcg/actuation inhalation Mist daily [Active]; - PMHx: 11:30 Asthma; Diabetes - NIDDM; Hyperlipidemia; Endometrial CA; ss 11:46 COPD; hb - PSHx: 11:30 L mastectomy; Hysterectomy; section; ss 11:46 RA; Osteoarthritis; Breast Cancer; hb - Immunization history:: Client reports receiving the 2nd dose of the Covid vaccine. - Social history:: Smoking status: Patient denies any tobacco usage or history of. Screenin:52 [facility] ED Fall Risk Assessment (Adult) History of falling in the last 3 months, me1 including since admission No falls in past 3 months (0 pts) Confusion or Disorientation No (0 pts) Intoxicated or Sedated No (0 pts) Impaired Gait No (0 pts) Mobility Assist Device Used No (0 pt) Altered Elimination No (0 pt) Score/Fall Risk Level 0 - 2 = Low Risk. Abuse screen: Denies threats or abuse. Nutritional screening: No deficits noted. Tuberculosis screening: No symptoms or risk factors identified. Assessment: 11:52 Reassessment: Patient appears in no apparent distress at this time. Patient and/or db family updated on plan of care and expected duration. Pain level reassessed. Patient is alert, oriented x 3, equal unlabored respirations, skin warm/dry/pink. VAGINAL PRESSURE AND PELVIC PAIN. General: Appears in no apparent distress. comfortable, Behavior is calm, cooperative. Pain: Complains of pain in pelvis. Neuro: Level of Consciousness is awake, alert, obeys commands, Oriented to person, place, time, situation. 12:52 Neuro: Level of Consciousness is awake, alert, obeys commands, Oriented to person, me1 place, time, situation, Appropriate for age. Cardiovascular: Capillary refill < 3 seconds Patient's skin is warm and dry. Respiratory: Airway is patent Respiratory effort is even, unlabored, Respiratory pattern is regular, symmetrical. GI: Reports constipation. : Reports difficulty urinating and vaginal and pelvic pain for the past few days. Vital Signs: 11:28 BP 129 / 78; Pulse 105; Resp 16; Temp 97.9(TE); Pulse Ox 98% on R/A; Weight 104.33 kg; ss Height 5 ft. 5 in. ; Pain 8/10; 13:08 BP 118 / 86; Pulse 86; Resp 19; Pulse Ox 100% on R/A; me1 13:08 BP 153 / 77; Pulse 87; Resp 18; Temp 100(O); me1 14:00 BP 153 / 77; Pulse 87; Resp 16; Pulse Ox 100% on R/A; me1 15:00 BP 133 / 73; Pulse 92; Resp 18; Pulse Ox 98% on R/A; me1 16:09 BP 147 / 95; Pulse 96; Resp 17; Pulse Ox 98% on R/A; me1 17:00 BP 122 / 78; Pulse 91; Resp 16; Pulse Ox 96% on R/A; me1 11:28 Body Mass Index 38.27 (104.33 kg, 165.1 cm) ss 11:28 Pain Scale: Adult ss ED Course: 11:19 Patient arrived in ED. ds4 11:21 David Pro is Attending Physician. ci 11:30 Triage completed. ss 11:30 Arm band placed on left wrist. ss 11:48 Galina Barclay, RN is Primary Nurse. me1 11:50 Assist provider with pelvic exam: Performed by David Pro Patient tolerated db well. 12:09 Urinalysis w/ reflexes Sent. me1 12:14 Missed attempt(s): 22 gauge in right antecubital area. Bleeding controlled, band aid sm8 applied, catheter tip intact. 12:15 Missed attempt(s): 22 gauge in right wrist. Bleeding controlled, band aid applied, sm8 catheter tip intact. 12:46 Inserted saline lock: 22 gauge in right forearm, using aseptic technique. me1 12:52 Patient has correct armband on for positive identification. Bed in low position. Call me1 light in reach. Side rails up X 1. Provided Education on: POC. Verbalized understanding.. 13:01 Abdomen In Process Unspecified. EDMS 15:37 Walter, Serjio, MD is Hospitalizing Provider. ci 18:00 Patient admitted, IV remains in place. me1 Administered Medications: 12:46 Drug: NS 0.9% IV 1000 ml Route: IV; Rate: 1 bolus; Site: right forearm; me1 14:32 Follow up: IV Status: Completed infusion; IV Intake: 1000ml me1 14:32 Drug: Amoxicillin-Clavulanate PO 875 mg Route: PO; me1 15:26 Follow up: Response: No adverse reaction me1 15:34 Drug: LevaQUIN IVPB 750 mg Route: IVPB; Site: right antecubital; me1 16:32 Follow up: Response: Adverse reaction, Physician notified; IV Intake: 86ml me1 16:33 Follow up: Response: Adverse reaction, Physician notified me1 16:47 Drug: diphenhydrAMINE IVP 12.5 mg Route: IVP; Site: right forearm; me1 17:47 Follow up: Response: No adverse reaction me1 16:47 Drug: metroNIDAZOLE IVPB 500 mg Volume: 100 ml; Route: IVPB; Rate: 200 ml/hr; Infused me1 Over: 30 mins; Site: right forearm; 17:47 Follow up: IV Status: Completed infusion; IV Intake: 100ml me1 Medication: 12:52 VIS not applicable for this client. me1 Intake: 14:32 IV: 1000ml; Total: 1000ml. me1 16:32 IV: 86ml; Total: 1086ml. me1 17:47 IV: 100ml; Total: 1186ml. me1 Outcome: 15:38 Decision to Hospitalize by Provider. ci 18:00 Admitted to Med/surg accompanied by tech, via wheelchair, room 207, with chart, Report me1 called to SHERMAN Avila 18:00 Condition: stable 18:00 Instructed on the need for admit. 18:51 Patient left the ED. Signatures: Dispatcher [employer] EDME Imani Soto RN RN ss Swanson, Donovan ds4 Milvia Hidalgo RN RN Rose Marie Rodríguez RN RN db Mills, Scarlett sm8 Galina Barclay RN RN mt1 David Pro ci Corrections: (The following items were deleted from the chart) 17:55 11:30 Allergies: No Known Allergies; me1 18:01 16:09 BP 122 / 78; Pulse 91bpm; Resp 16bpm; Pulse Ox 96% RA; me1 me1
--- NOTE | 2023-07-26 15:39 | EDPHYS ---
Physician Documentation [facility] Name: Annabella Trevino Age: 68 yrs Sex: Female : 1955 Arrival Date: 07/26/2023 Time: 11:17 Bed 20 Private MD: ED Physician David Pro HPI: 07/26 12:49 This 68 yrs old Female presents to ER via Ambulatory with complaints of Urinary Problem.ci 12:49 Patient is a 68-year-old female with PMH endometrial cancer s/p complete hysterectomy ci in 2019, asthma, diabetes, hyperlipidemia, COPD who presents to the ED with chief complaint of urinary symptoms, bladder pressure, rectal pressure and vaginal pain that began yesterday after she put her vaginal dilator in. Patient reports since her hysterectomy she was given a vaginal dilator, while attempting to put it in yesterday it hurt a little bit but she removed the vaginal dilator and has had pain since. She is also endorsing left lower quadrant abdominal pain that began yesterday. . Historical: - Allergies: 17:55 Levaquin IV; me1 - Home Meds: 11:37 ipratropium-albuterol 0.5 mg-3 mg(2.5 mg base)/3 mL Inhl Solution for Nebulization as hb needed [Active]; simvastatin 40 mg Oral tablet every day at bedtime [Active]; Ventolin Rotahaler/Rotacaps Nebulizer 200 micrograms four times a day [Active]; lisinopril 20 mg Oral tablet daily [Active]; fluticasone propionate 50 mcg/actuation intranasal spray, suspension daily [Active]; Vitamin D3 10 mcg (400 unit) oral capsule daily [Active]; calcium carbonate 600 mg calcium (1,500 mg) Oral tablet every other day [Active]; hydrochlorothiazide 12.5 mg Oral capsule daily [Active]; allopurinol 100 mg Oral tablet 2 times per day [Active]; letrozole 2.5 mg oral tablet daily [Active]; metformin 1,000 mg Oral Tablet, Extended Release 24 hr daily [Active]; montelukast 10 mg oral tablet every day at bedtime [Active]; Ozempic 0.25 mg or 0.5 mg (2 mg/3 mL) subcutaneous Pen Injector every week [Active]; fluticasone propion-salmeterol 113-14 mcg/actuation inhalation Aerosol Powder, Breath Activated 1 inhalation 2 times per day [Active]; Spiriva Respimat 2.5 mcg/actuation inhalation Mist daily [Active]; - PMHx: 11:30 Asthma; Diabetes - NIDDM; Hyperlipidemia; Endometrial CA; ss 11:46 COPD; hb - PSHx: 11:30 L mastectomy; Hysterectomy; section; ss 11:46 RA; Osteoarthritis; Breast Cancer; hb - Immunization history:: Client reports receiving the 2nd dose of the Covid vaccine. - Social history:: Smoking status: Patient denies any tobacco usage or history of. ROS: 17:29 Constitutional: Negative for fever, chills, and weight loss, Cardiovascular: Negative ci for chest pain, palpitations, and edema, Respiratory: Negative for shortness of breath, cough, wheezing, and pleuritic chest pain, Abdomen/GI: Negative for nausea, vomiting, diarrhea, and constipation.+VE abdominal pain : Negative for injury, bleeding, discharge, and swelling. Vaginal pain, rectal pressure Neuro: Negative for headache, weakness, numbness, tingling, and seizure. 17:29 All other systems are negative. Exam: 17:29 Constitutional: This is a well developed, well nourished patient who is awake, alert, ci and in no acute distress. Head/Face: Normocephalic, atraumatic. Eyes: Pupils equal round and reactive to light, extra-ocular motions intact. Lids and lashes normal. Conjunctiva and sclera are non-icteric and not injected. Cornea within normal limits. Periorbital areas with no swelling, redness, or edema. ENT: Nares patent. No nasal discharge, no septal abnormalities noted. Tympanic membranes are normal and external auditory canals are clear. Oropharynx with no redness, swelling, or masses, exudates, or evidence of obstruction, uvula midline. Mucous membranes moist. Neck: Trachea midline, no thyromegaly or masses palpated, and no cervical lymphadenopathy. Supple, full range of motion without nuchal rigidity, or vertebral point tenderness. No Meningismus. Chest/axilla: Normal chest wall appearance and motion. Nontender with no deformity. No lesions are appreciated. Cardiovascular: Regular rate and rhythm with a normal S1 and S2. No gallops, murmurs, or rubs. No JVD. No pulse deficits. Respiratory: Lungs have equal breath sounds bilaterally, clear to auscultation and percussion. No rales, rhonchi or wheezes noted. No increased work of breathing, no retractions or nasal flaring. Abdomen/GI: Soft, with normal bowel sounds. No distension or tympany. Positive moderate left lower quadrant tenderness to palpation. No guarding or rebound. No evidence of tenderness throughout. Back: No spinal tenderness. No costovertebral tenderness. Full range of motion. Female : Normal external genitalia. Pelvic exam performed with RN as my branch credit counselor. No discharge, foreign bodies, bleeding Skin: Warm, dry with normal turgor. Normal color with no rashes, no lesions, and no evidence of cellulitis. MS/ Extremity: Pulses equal, no cyanosis. Neurovascular intact. Full, normal range of motion. Neuro: Awake and alert, GCS 15, oriented to person, place, time, and situation. Cranial nerves II-XII grossly intact. Motor strength 5/5 in all extremities. Sensory grossly intact. Cerebellar exam normal. Normal gait. Psych: Awake, alert, with orientation to person, place and time. Behavior, mood, and affect are within normal limits. Vital Signs: 11:28 BP 129 / 78; Pulse 105; Resp 16; Temp 97.9(TE); Pulse Ox 98% on R/A; Weight 104.33 kg; ss Height 5 ft. 5 in. ; Pain 8/10; 13:08 BP 118 / 86; Pulse 86; Resp 19; Pulse Ox 100% on R/A; me1 13:08 BP 153 / 77; Pulse 87; Resp 18; Temp 100(O); me1 14:00 BP 153 / 77; Pulse 87; Resp 16; Pulse Ox 100% on R/A; me1 15:00 BP 133 / 73; Pulse 92; Resp 18; Pulse Ox 98% on R/A; me1 16:09 BP 147 / 95; Pulse 96; Resp 17; Pulse Ox 98% on R/A; me1 17:00 BP 122 / 78; Pulse 91; Resp 16; Pulse Ox 96% on R/A; me1 11:28 Body Mass Index 38.27 (104.33 kg, 165.1 cm) ss 11:28 Pain Scale: Adult ss MDM: 11:21 Patient medically screened. ci 15:22 ED course: General surgery consulted due to concerns of diverticulitis extending into ci the perirectal and vaginal cough with fat stranding. I spoke with Dr. Lopez who recommended admission for IV antibiotics as patient may be developing a fistula.. 15:30 ED course: Hospitalist paged.. ci 17:28 ED course: Patient admitted to hospitalist but still in the ED awaiting bed. RN ci informed me that patient developed hives after Levaquin was started. Levaquin was discontinued, she was given Benadryl and Flagyl was added. Hospitalist was updated.. 17:29 Differential Diagnosis Diverticulitis, UTI, pyelonephritis, nephrolithiasis, bowel ci obstruction. Data reviewed: vital signs, nurses notes, old medical records, Creatinine at [facility] a few days ago was 1.40. Management of patient was discussed with the following: Hospitalist: Spoke with Dr. Watson who accepted patient for admission.. Hatchery Supervisor: Dr. Lopez, general surgery who recommended admission, IV antibiotics as patient is high risk for developing fistula. May need repeat CT abdo/pelvis, colorectal surgery if no improvement. 17:29 I considered the following discharge prescriptions or medication management in the emergency department Considered pain meds but patient stated pain was tolerable.. Historians other than the Patient: Spouse/Significant Other: . External Records Reviewed: Outpatient record: Patient has blood work from [facility] on her tablet, history of CKD, creatinine of 1.40, GFR 41.. Care significantly affected by the following chronic conditions: Diabetes, Chronic Obstructive Pulmonary Disease, Hyperlipidemia. Counseling: I had a detailed discussion with the patient and/or guardian regarding the historical points, exam findings, and any diagnostic results supporting the discharge/admit diagnosis, the presence of at least one elevated blood pressure reading (>120/80) during this emergency department visit, lab results, radiology results, the need for further work-up and treatment in the hospital. Special discussion: Based on the history and exam findings, there is no indication for further emergent testing or inpatient evaluation. I discussed with the patient/guardian the need to see the colorectal surgeon for further evaluation of the symptoms. I discussed with the patient/guardian the need to see the general surgeon for further evaluation of the symptoms. 23:12 Discussion of test interpretation with radiology: I had a discussion with radiology ci regarding a test interpretation. Discussed findings of diverticulitis extending into the vaginal cuff, perirectal fat stranding. 07/26 11:52 Order name: Urinalysis w/ reflexes; Complete Time: 12:50 ci 07/26 11:52 Order name: CBC with Diff; Complete Time: 13:39 ci 07/26 13:40 Interpretation: Abnormal: WBC 15.10. ci 07/26 11:52 Order name: CMP; Complete Time: 12:50 ci 07/26 12:51 Interpretation: Abnormal: CRE 1.66. ci 07/26 11:52 Order name: Lipase; Complete Time: 12:50 ci 07/26 16:09 Order name: CBC with Automated Diff [facility] 07/26 16:09 Order name: CBC with Automated Diff [facility] 07/26 16:09 Order name: Comprehensive Metabolic Panel [facility] 07/26 16:09 Order name: Comprehensive Metabolic Panel [facility] 07/26 16:09 Order name: Magnesium [facility] 07/26 16:09 Order name: Magnesium [facility] 07/26 16:09 Order name: Phosphorus [facility] 07/26 16:09 Order name: Phosphorus [facility] 07/26 16:09 Order name: Protime (+INR) [facility] 07/26 16:09 Order name: Protime (+INR) [facility] 07/26 16:09 Order name: Blood Culture [facility] 07/26 16:09 Order name: Lactate w/ 2H reflex if indic. [facility] 07/26 16:09 Order name: Blood Culture [facility] 07/26 12:56 Order name: Abdomen ; Complete Time: 17:42 [facility] 07/26 17:44 Interpretation: Per Radiologist's finding(s): IMPRESSION: Sequelae of sigmoid ci diverticulitis as above without evidence of complications. Some fat stranding extends caudally towards the vaginal cuff and into the perirectal fat. 07/26 15:23 Order name: EKG; Complete Time: 15:23 ci 07/26 16:09 Order name: CONS Physician Consult [facility] 07/26 16:09 Order name: NPO [facility] 07/26 11:52 Order name: IV Saline Lock 07/26 11:52 Order name: Labs collected and sent; Complete Time: 12:14 ci 07/26 12:30 Order name: Labs - recollect needed: CBC only; Complete Time: 12:45 ss Administered Medications: 12:46 Drug: NS 0.9% IV 1000 ml Route: IV; Rate: 1 bolus; Site: right forearm; me1 14:32 Follow up: IV Status: Completed infusion; IV Intake: 1000ml me1 14:32 Drug: Amoxicillin-Clavulanate PO 875 mg Route: PO; me1 15:26 Follow up: Response: No adverse reaction me1 15:34 Drug: LevaQUIN IVPB 750 mg Route: IVPB; Site: right antecubital; me1 16:32 Follow up: Response: Adverse reaction, Physician notified; IV Intake: 86ml me1 16:33 Follow up: Response: Adverse reaction, Physician notified me1 16:47 Drug: diphenhydrAMINE IVP 12.5 mg Route: IVP; Site: right forearm; me1 17:47 Follow up: Response: No adverse reaction me1 16:47 Drug: metroNIDAZOLE IVPB 500 mg Volume: 100 ml; Route: IVPB; Rate: 200 ml/hr; Infused me1 Over: 30 mins; Site: right forearm; 17:47 Follow up: IV Status: Completed infusion; IV Intake: 100ml me1 Disposition Summary: 07/26/23 15:38 Hospitalization Ordered Hospitalization Status: Inpatient Admission ci Provider: Serjio Watson Location: Telemetry/[facility] (Inpatient) ci Condition: Stable ci Problem: new ci Symptoms: are unchanged ci Bed/Room Type: Standard ci Room Assignment: 207(07/26/23 17:39) [facility] Diagnosis - Diverticulitis of large intestine without perforation or abscess without bleeding ci Forms: - Medication Reconciliation Form ci - SBAR form ci - Leadership Thank You Letter ci Signatures: Dispatcher [employer] EDImani Allen RN RN Milvia Hidalgo RN RN Jordan Torres RN RN 1 Galina Barclay RN RN [facility] David Pro ci Corrections: (The following items were deleted from the chart) 12:56 11:53 Abdomen Pelvis W Con+CT.RAD.BRZ ordered. EDMS EDMS 17:22 15:[address] [facility] 17:25 17:22 [address] [place] [id number] 17:26 17:25 [place] [id number] 17:32 12:49 Patient is a 68-year-old female with PMH endometrial cancer s/p complete ci hysterectomy in 2019, asthma, diabetes, hyperlipidemia, COPD who presents to the ED with chief complaint of urinary vaginal pain that began yesterday after she put her vaginal dilator in. Patient reports since her hysterectomy she was given a vaginal dilator, while attempting to put it in yesterday it hurt a little bit but she removed the vaginal dilator and has had pain since. She is also endorsing left lower quadrant abdominal pain that began yesterday.. ci 17:39 17:26 404 ja1 ja1 17:55 11:30 Allergies: No Known Allergies; ss me1 23:16 17:29 Management of patient was discussed with the following: Hospitalist: Spoke with ci Dr. Watson who accepted patient for admission.. Hatchery Supervisor: Dr. Lopez, general surgery who recommended admission.. ci
--- NOTE | 2023-07-26 16:04 | P.HP ---
Certification for Inpatient Patient admitted to: Inpatient With expected LOS: >2 Midnights Patient will require the following post-hospital care: None Practitioner: I am a practitioner with admitting privileges, knowledge of patient current condition, hospital course, and medical plan of care. Services: Services provided to patient in accordance with Admission requirements found in Title 42 Section 412.3 of the Code of Federal Regulations Patient History Date of Service: 07/26/23 Primary Care Provider: Dr. Levi Reason for admission: Diverticulitis History of Present Illness: Ms. Annabella Trevino is a pleasant 68 year old female who has a past medical history of endometrial cancer s/p radiation and hysterectomy (November 2018), left breast cancer s/p left mastectomy (September 2020), chronic obstructive pulmonary disease, asthma, type 2 diabetes mellitus, rheumatoid arthritis, gout, hypertension, and hyperlipidemia who presents to the [facility] Emergency Department for abdominal pain. She reports that, over the last 1 day, she has been experiencing intermittent episodes of abdominal pain. She states that the pain is located in her left lower quadrant and is nonradiating. She describes the pain as spasms and grades it an 8/10 in severity. She denies any obvious inciting or alleviating factors. She has not tried taking any medications for her symptoms. She reports associated chills, constipation, nausea, and tenesmus. On review of systems, she denies any fevers, headaches, dizziness, weakness, chest pain, palpitations, shortness of breath, wheezing, cough, vomiting, diarrhea, hematochezia, melena, dysuria, hematuria, myalgia, or any other symptoms. She presented to the Emergency Department for further evaluation. Upon presentation, her vital signs were notable for tachycardia. Her laboratory studies were notable for a WBC count of 15,100 and a creatinine of 1.66 (creatinine was 1.22 on 11/24/2022). Her EKG was without STEMI criteria. Her CT abdomen/pelvis revealed, "sequelae of sigmoid diverticulosis as above without evidence of complications. Some fat stranding extends caudally towards the vaginal cuff and into the perirectal fat." General Surgery was consulted in the Emergency Department, and recommended admission with IV antibiotics. In the Emergency Department, she was given amoxicillin-clavulanate, levofloxacin, and 1 L Normal Saline. She was admitted to the General Internal Medicine service for further evaluation. Allergies levofloxacin Allergy (Intermediate, Verified 07/26/23 16:56) Hives/Rash Home medications list reviewed: Yes Home Medications: Albuterol Sulfate [Ventolin Hfa] 90 mcg IH TIDP PRN 10/07/18 Fluticasone [Flonase 50MCG Nasal [place]*] 1 mg GISEL DAILY 10/07/18 lisinopriL [Lisinopril] 20 mg PO DAILY 10/07/18 Simvastatin 40 mg PO BEDTIME 06/20/19 Calcium Carbonate [Calcium] 600 mg PO Q48H 07/26/23 Cholecalciferol (Vitamin D3) [Vitamin D3] 100 mcg PO DAILY 07/26/23 Fluticasone/Salmeterol [Fluticasone-Salmeterol 113-14] 1 puff IH BID 07/26/23 Ipratropium/Albuterol Sulfate [Iprat-Albut 0.5-3(2.5) mg/3 ml] 1 amp NEB Q4HP PRN 07/26/23 Letrozole [Femara] 2.5 mg PO DAILY 07/26/23 Metformin HCl [Metformin ER Gastric] 1,000 mg PO DAILY 07/26/23 Montelukast Sodium [Singulair] 10 mg PO BEDTIME 07/26/23 Semaglutide [Ozempic] 0.25 mg SQ EVERY 7TH DAY 07/26/23 Tiotropium [place] [Spiriva] 1 spray IH DAILY 07/26/23 allopurinoL [Allopurinol] 100 mg PO BID 07/26/23 hydroCHLOROthiazide [Hydrochlorothiazide] 12.5 mg PO DAILY 07/26/23 - Past Medical/Surgical History Diabetic: Yes -: endometrial cancer -: breast cancer -: hypertension -: asthma -: type II diabetes -: hyperlipidemia -: rheumatoid arthritis -: gout -: COPD -: cholecystecotomy -: L knee cyst -: hysterectomy Nov 2018 -: left mastectomy Sep 2020 - Family History Family History: Reviewed- Non-Contributory - Social History Smoking Status: Never smoker Alcohol use: No CD- Drugs: No Caffeine use: Yes Review of Systems General: Chills Eyes: Unremarkable ENT: Unremarkable Respiratory: Unremarkable Cardiovascular: Unremarkable Gastrointestinal: Nausea, Abdominal Pain, Constipation, Other (tenesmus) Genitourinary: Unremarkable Musculoskeletal: Unremarkable Integumentary: Unremarkable Neurological: Unremarkable Lymphatics: Unremarkable Physical Examination - Vital Signs Temperature: 100.0 F Blood Pressure: 157/77 Pulse: 87 Respirations: 18 Pulse Ox (%): 100 - Physical Exam General: Alert, In no apparent distress, Oriented x3 HEENT: Atraumatic, Mucous membr. moist/pink, Sclerae nonicteric Neck: JVD not distended Respiratory: Clear to auscultation bilaterally, Normal air movement Cardiovascular: No edema, Regular rate/rhythm, Normal S1 S2, No gallops, No rubs, No murmurs Gastrointestinal: Normal bowel sounds, Non-distended, No rebound, No guarding, Tenderness (LLQ) Musculoskeletal: No clubbing Integumentary: No rashes Neurological: Normal speech, Normal affect - Studies Laboratory Data (last 24 hrs) 07/26/23 07/26/23 12:43 12:12 WBC 15.10 H Hgb 12.6 Hct 37.6 Plt Count 325 Sodium 134 L Potassium 4.2 BUN 33 H Creatinine 1.66 H Glucose 139 H Total Bilirubin 0.5 AST 15 ALT 24 Alkaline Phosphatase 97 Lipase 51 Assessment and Plan - Plan # Sepsis likely secondary to Sigmoid Diverticulitis She meets SIRS criteria based on HR > 90 bpm and WBC > 12,000, and the suspected source is diverticulitis. - CT abdomen/pelvis = "sequelae of sigmoid [diverticulitis] as above without evidence of complications. Some fat stranding extends caudally towards the vaginal cuff and into the perirectal fat." - General Surgery consulted and Dr. Pro spoke with Dr. John cristina - Sepsis order set was initiated - Initial Lactate was requested - Blood cultures x 2 requested - Broad spectrum antibiotics started: Levofloxacin (developed hives in ED, so this was discontinued), switched to piperacillin-tazobactam - In regards to fluids: - 30 mL/kg of IV fluids was not administered given SBP > 90, MAP > 65, and response to lesser volume # KDIGO Stage I Acute Kidney Injury - Creatinine = 1.66 (creatinine was 1.22 on 11/24/2022) - Urinalysis = 4+ glucose - Monitor creatinine and urine output - If worsening, obtain renal ultrasound - Renally dose medications # Type II Diabetes Mellitus - Correction scale insulin - Hold home metformin, semaglutide # Hypertension - Hold home lisinopril, hydrochlorothiazide given ROSEMARY # Hyperlipidemia - Continue home simvastatin # Gout - Continue home allopurinol # Chronic Obstructive Pulmonary Disease # Asthma - No evidence of exacerbation - Continue home meds # Endometrial Cancer s/p radiation and hysterectomy (November 2018) # Left Breast Cancer s/p left mastectomy (September 2020) - Hold home letrozole for now # 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 - Advance Directives Does patient have a Living Will: No Does patient have a Durable POA for Healthcare: No
[2023-07-26] MEDS ORDERED: DIPHENHYDRAMINE 50 MG/ML VIAL ONE (16:57)
[2023-07-26] MEDS ORDERED: NA CHLORIDE 0.9% 0 ML ONE (16:57)
[2023-07-26] MEDS ORDERED: METRONIDAZOLE 500mg IVPB 500 MG/100 ML BAG IV SCH (17:00)
[2023-07-26] MEDS ORDERED: IPRATROPIUM IH PRN (17:10)
[2023-07-26] MEDS ORDERED: ALBUTEROL SULFATE IH PRN (17:10)
[2023-07-26] MEDS: PIPER TAZO 3.375 GM in NA CHLORIDE 0.9% 100 ML IV SCH (18:40)
[2023-07-26] MEDS: Ringers Lactate 1,000 ML IV SCH (18:40)
--- NOTE | 2023-07-26 19:21 | P.PN ---
Date of Service: 07/27/23 Subjective: Physical Exam: Vitals: Reviewed Gen: Alert, Oriented, NAD CV: regular rate & rhythm, no edema Pulm: Respirations are clear bilaterally Abd: soft, LLQ tenderness, nondistended MSK: no joint tenderness Integumentary: No rashes Neuro: normal speech, normal affect Problem List: 1. Sepsis likely secondary to Sigmoid Diverticulitis 2. ROSEMARY 3. Type II Diabetes Mellitus 4. Hypertension 5. Hyperlipidemia 6. Gout 7. COPD 8. Asthma 9. Endometrial Cancer s/p radiation and hysterectomy (November 2018) 10. Left Breast Cancer s/p left mastectomy (September 2020) 11. Exophytic Renal Cysts (5.3x3.9 cm and 5.8x7.4 cm) PLAN: General Surgery consulted Follow cultures Continue Zosyn Monitor renal function Renally dose medications NPO Sliding scale insulin Hold home metformin, semaglutide Hold home lisinopril, hydrochlorothiazide given ROSEMARY Hold home letrozole for now Continue home simvastatin Continue home allopurinol Continue other home medications as appropriate DVT prophylaxis with Lovenox
[2023-07-26] MEDS: FLUTICASONE IH SCH (21:00)
[2023-07-26] MEDS: SALMETEROL IH SCH (21:00)
[2023-07-26] MEDS ORDERED: FLUTICASONE PROPIONATE IH SCH (21:00)
[2023-07-26] MEDS: ATORVASTATIN 20 MG TAB PO SCH (21:04)
[2023-07-26] MEDS: allopurinoL 100 MG TAB PO SCH (21:04)
[2023-07-26] MEDS: MONTELUKAST 10 MG TAB PO SCH (21:04)
[2023-07-26 23:08] VITALS: BMI 38.2
[2023-07-27] MEDS: PIPER TAZO 3.375 GM in NA CHLORIDE 0.9% 100 ML IV SCH ×3 (00:35→16:40)
[2023-07-27 03:27] LABS: Absolute Lymphocytes (CBC) 1.9 K/uL (0.7-4.9); Hematocrit 33.1 % (36.0-45.0); Lymphocytes % 17.1 % (15.3-44.8); MCV 88.8 fL (80-100); MPV 8.1 fL (7.6-11.3); Platelets 283 thou/uL (152-406); RBC Red Blood Cell Count 3.72 M/uL (3.86-4.86)
[2023-07-27 03:30] LABS: Protime INR 1.22
[2023-07-27 03:47] LABS: Bilirubin Total 0.6 mg/dL (0.2-1.0); Magnesium 1.8 mg/dL (1.6-2.4); Phosphorus 3.5 mg/dL (2.5-4.9); Protein, Total 6.8 g/dL (6.4-8.2)
[2023-07-27] MEDS: Ringers Lactate 1,000 ML IV SCH ×2 (06:04→19:40)
[2023-07-27] MEDS ORDERED: IPRATROPIUM BROM 0.5MG/2.5ML IH PRN (07:17)
[2023-07-27] MEDS ORDERED: ALBUTEROL 2.5 MG/3 ML NEB SOL IH PRN ×2 (07:17→14:00)
[2023-07-27] MEDS: allopurinoL 100 MG TAB PO SCH ×2 (07:45→21:44)
[2023-07-27] MEDS: FLUTICASONE IH SCH ×2 (07:50→21:44)
[2023-07-27] MEDS: SALMETEROL IH SCH ×2 (07:50→21:44)
[2023-07-27] MEDS ORDERED: ENOXAPARIN 30 MG/0.3 ML SQ SCH (09:00)
[2023-07-27] MEDS: FLUTICASONE 50MCG NASAL SPRAY NAS SCH (09:00)
[2023-07-27] MEDS ORDERED: TIOTROPIUM 5 SPRAYS/INHALER IH SCH (09:00)
[2023-07-27] MEDS ORDERED: CIPROFLOXACIN 400mg IV 400 MG/200 ML BAG IV SCH (09:00)
[2023-07-27] MEDS ORDERED: IPRATROPIUM BROM 0.5MG/2.5ML NEB PRN (14:00)
[2023-07-27] MEDS ORDERED: ALBUTEROL 2.5 MG/3 ML NEB SOL NEB PRN (14:00)
--- NOTE | 2023-07-27 17:28 | CON ---
Date of Consultation: 07/27/2023 History Of Present Illness: Ms. Trevino is a 68-year-old patient, who came yesterday with history of constipation. Yesterday, she was having difficulty urinating and having bowel movement. Also ramirez s some left lower quadrant tenderness. She came to the ER, found out to have diverticulitis and admi ssion was done with a surgical consult. She had extensive surgical history, specifically the area of the pelvis. She states she has endometrial cancer and she had a hysterectomy done with also a radia tion therapy in that region. She also had left breast cancer with left mastectomy done. She feels b monika today. She denies any nausea, vomiting, any dysuria, hematuria, hematochezia, or melena. José Miguel es any recent traveling out of the country. Denies any family member sick at home. When she was ask ed about colonoscopy, she told me that she has been asked many times to do so, but she has not done i t. She was advised the importance of colonoscopies. Past Medical History: Endometrial cancer, breast cancer, hypertension, asthma, diabetes, rheumatoid arthritis, gout, COPD. Past Surgical History: Surgeries include left mastectomy, cholecystectomy, hysterectomy, left knee c yst removal. Social History: She does not smoke. She does not drink alcohol. Family History: Noncontributory. Medications: Reviewed including albuterol, metformin, Ozempic, allopurinol, hydrochlorothiazide. Review of Systems: She had nausea before, but no nausea anymore. She has constipation, but not anymore. See HPI for fu ll details, 10 points otherwise unremarkable. Physical Examination: General: The patient is awake, alert. HEENT: Pupils are equal and reactive. Anicteric. Neck: Supple. Chest: Clear. Heart: S1, S2. Abdomen: Soft and depressible. No guarding, rebound, or peritoneal signs. She has no pain today. Rectal: Deferred. Extremities: Good capillary refill. Breasts: Deferred. Laboratory Data: Blood work shows WBC count of initially 15, now to 10 with hemoglobin of 11.3. Sod ium is [address] is [address] scan of the abdomen and pelvis interpreted by Dr. Armendariz as sequela of sigmoid diverticulitis with described inflammatory changes, wall thickening involving the proximal to mid sigmoid colon, fat stranding going all the way down to the vaginal cuff, and some fat stranding in the perirectal fat. Assessment: This is diverticulitis with adjacent inflammation. We encouraged her to see her gynecol ogist once again for followup. When this episode resolves, we need also a colonoscopy. Adan evans will be helping us with the ID. She understands surgical options, although obviously she is t rying to stay away from them at this moment. She also understands the chance of following up in the future if she develops any chance of fistula, although she does not have at this moment the signs of the symptoms of it. CARITO/ELLIOTT Voice ID: [id number] Report ID: [id number]
[2023-07-27] MEDS: LETROZOLE 2.5 MG TAB PO SCH (18:00)
[2023-07-27] MEDS: MONTELUKAST 10 MG TAB PO SCH (21:44)
[2023-07-27] MEDS: ATORVASTATIN 20 MG TAB PO SCH (21:44)
[2023-07-28 00:41] VITALS: O2SAT 97
[2023-07-28] MEDS: PIPER TAZO 3.375 GM in NA CHLORIDE 0.9% 100 ML IV SCH ×2 (01:00→08:41)
[2023-07-28] MEDS: Ringers Lactate 1,000 ML IV SCH ×2 (08:16→08:44)
[2023-07-28] MEDS: LETROZOLE 2.5 MG TAB PO SCH (08:39)
[2023-07-28] MEDS: FLUTICASONE 50MCG NASAL SPRAY NAS SCH (08:39)
[2023-07-28] MEDS: SALMETEROL IH SCH (08:40)
[2023-07-28] MEDS: FLUTICASONE IH SCH (08:40)
[2023-07-28] MEDS: allopurinoL 100 MG TAB PO SCH (08:41)
--- NOTE | 2023-07-28 08:44 | P.CNS ---
Date of Consult: 07/28/23 Reason for Consult: Diverticulitis Primary Care Provider: Dr. Levi Chief Complaint: Diverticulitis History of Present Illness: Patient is a 68 yo female with a past medical history of endometrial cancer s/p radiation and hysterectomy, COPD, diabetes type 2, rheumatoid arthritis, gout, hypertension who presented to the ED with complaints of abdominal pain. Patient was found to have sigmoid diverticulitis, general surgery was consulted. Patient admitted for sepsis likely secondary to sigmoid diverticulitis. She was given fluids in the ED, blood cultures obtained, started on broad-spectrum antibiotics. Infectious disease consulted. Allergies levofloxacin Allergy (Intermediate, Verified 07/26/23 16:56) Hives/Rash Home medications list reviewed: Yes Home Medications: Albuterol Sulfate [Ventolin Hfa] 90 mcg IH TIDP PRN 10/07/18 Fluticasone [Flonase 50MCG Nasal [place]*] 1 mg GISEL DAILY 10/07/18 lisinopriL [Lisinopril] 20 mg PO DAILY 10/07/18 Simvastatin 40 mg PO BEDTIME 06/20/19 Calcium Carbonate [Calcium] 600 mg PO Q48H 07/26/23 Cholecalciferol (Vitamin D3) [Vitamin D3] 100 mcg PO DAILY 07/26/23 Fluticasone/Salmeterol [Fluticasone-Salmeterol 113-14] 1 puff IH BID 07/26/23 Ipratropium/Albuterol Sulfate [Iprat-Albut 0.5-3(2.5) mg/3 ml] 1 amp NEB Q4HP PRN 07/26/23 Letrozole [Femara] 2.5 mg PO DAILY 07/26/23 Metformin HCl [Metformin ER Gastric] 1,000 mg PO DAILY 07/26/23 Montelukast Sodium [Singulair] 10 mg PO BEDTIME 07/26/23 Semaglutide [Ozempic] 0.25 mg SQ EVERY 7TH DAY 07/26/23 Tiotropium [place] [Spiriva] 1 spray IH DAILY 07/26/23 allopurinoL [Allopurinol] 100 mg PO BID 07/26/23 hydroCHLOROthiazide [Hydrochlorothiazide] 12.5 mg PO DAILY 07/26/23 - Past Medical/Surgical History Diabetic: Yes -: endometrial cancer -: breast cancer -: hypertension -: asthma -: type II diabetes -: hyperlipidemia -: rheumatoid arthritis -: gout -: COPD -: cholecystecotomy -: L knee cyst -: hysterectomy Nov 2018 -: left mastectomy Sep 2020 - Social History Smoking Status: Never smoker Alcohol use: No CD- Drugs: No Caffeine use: Yes Place of Residence: Home Review of Systems 10-point ROS is otherwise unremarkable Gastrointestinal: Abdominal Pain (mild) Physical Examination Temp Pulse Resp BP Pulse Ox 97.4 F 82 16 139/78 97 07/28/23 04:00 07/28/23 04:00 07/28/23 04:00 07/28/23 04:00 07/28/23 04:00 General: Alert, In no apparent distress, Oriented x3 HEENT: Atraumatic, Normocephalic Neck: Supple, JVD not distended Respiratory: Clear to auscultation bilaterally, Normal air movement Cardiovascular: Normal S1 S2 Gastrointestinal: Normal bowel sounds, Soft and benign Musculoskeletal: No clubbing Integumentary: No rashes Neurological: Normal speech, Normal tone, Normal affect Laboratory data reviewed Microbiology data reviewed Imagings Data: Reviewed Conclusions/Impression: Problem list Sepsis Sigmoid diverticulitis Acute kidney injury Diabetes mellitus type 2 Hypertension Hyperlipidemia Gout COPD endometrial cancer s/p radiation and hysterecomy Left breast cancer s/p mastectomy * allergy: Levaquin * Sigmoid Diverticulitis -Blood cultures 07/26: No growth 24 hours -CT abdomen pelvis 07/26: "Sequelae of sigmoid diverticulosis as above without evidence of complications. Some fat stranding extends caudally towards the vaginal cuff and into the perirectal fat." -General surgery on case -Patient was originally started on Levaquin 07/26 in the ED, developed hives. Le vaquin was discontinued and patient was started on Zosyn. -Currently on Zosyn (started 07/26) -Leukocytosis improving. Afebrile. Recommendations Continue antibiotic therapy for 14 days (07/26 to 08/09). She is currently on Zosyn, has been improving. - Consider switch to Augmentin p.o. upon discharge to complete remainder of antibiotic course. General surgery has discussed treatment options with patient. Once this episode is resolved, patient is to have colonoscopy. 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
[2023-07-28] MEDS ORDERED: [UNRECOGNIZED DRUG - OTHER] IH SCH (09:00)
[2023-07-28] MEDS ORDERED: ENOXAPARIN 40 MG/0.4 ML SQ SCH (09:00)
[2023-07-28] MEDS ORDERED: AMOX/K CLAV 875 MG TAB PO SCH (13:00)
[2023-07-28 17:02] VITALS: BP 154/89; TEMP 97.1
--- NOTE | 2023-07-28 17:16 | PN ---
Date of Progress Note: 07/28/2023 Diagnosis: Diverticulitis. Subjective: The patient is doing better. No nausea, vomiting. No fever. No abdominal pain. Passi ng flatus and good bowel movement. The pain in her left lower quadrant is gone. She is tolerating d iet. Objective: Chest: Clear. Abdomen: Soft and depressible. No guarding or rebound. No peritoneal signs. Extremities: Good capillary refill. Plan: Advance diet and she advised once again about the colonoscopy as an outpatient. She does not want any other IV started, so she is going to be switched to p.o. antibiotics. She understands the r isks of not allowing more IV medications to be given, but she thinks she feels better. She wants to take the chance, as long as clinically she improves, I guess we are going to have to comply with that . MIRIAN Voice ID: [id number] Report ID: [id number]
== END 2023-07-28 18:26 | disposition home or self-care (01) | DRG 872 ==
LOC: ER 11:17 → 4TH 17:27 → 2ND 17:41
PROVIDERS: ADMIT Internal Medicine; ATTEND Hospitalist
DX: A41.9 Sepsis, unspecified organism (principal); K57.32 Diverticulitis of large intestine without perforation or abscess without bleeding; N17.9 Acute kidney failure, unspecified; J44.9 Chronic obstructive pulmonary disease, unspecified; E78.5 Hyperlipidemia, unspecified; E11.9 Type 2 diabetes mellitus without complications; M10.9 Gout, unspecified; N28.1 Cyst of kidney, acquired; M06.9 Rheumatoid arthritis, unspecified; M19.90 Unspecified osteoarthritis, unspecified site; Z85.3 Personal history of malignant neoplasm of breast; Z88.1 Allergy status to other antibiotic agents; Z79.84 Long term (current) use of oral hypoglycemic drugs; Z90.49 Acquired absence of other specified parts of digestive tract; Z90.12 Acquired absence of left breast and nipple; Z79.899 Other long term (current) drug therapy; Z90.710 Acquired absence of both cervix and uterus
CPT/HCPCS: 36415; 74176; 80053; 81003; 83605; 83690; 83735; 84100; 85025; 85610; 87040; 99285; J1200; J1650; J2543; J7030; J7120